=== PATIENT | female | born 1965 | race Caucasian/White ===

== ENCOUNTER → 2020-04-12 | Outpatient (CLI) | payer BC, SELFPAY | END | disposition home or self-care (01) | LOC: LABSPEC 17:38 | PROVIDERS: Referring Provider Physician Assistant; Visit Provider Physician Assistant | DX: Z20.828 Contact with and (suspected) exposure to other viral communicable diseases (principal) | CPT/HCPCS: 87635; G2023; U0003 ==

== ENCOUNTER 2025-08-25 08:35 | Emergency (ER) | payer OTHER, SELFPAY ==
[2025-08-25 08:35] VITALS: BP 166/87; PULSE 99; RESP 16; TEMP 36.7; O2SAT 100; BMI 35.9
--- NOTE | 2025-08-25 09:05 | CT_ITS ---
PROCEDURE: ABDOMEN/PELVIS W IV CONT ONLY 08/25/2025 REASON FOR EXAM: RIGHT LOWER QUADRANT PAIN TECHNIQUE: Procedure Code: [id number] Modality: CT Procedure: ABDOMEN/PELVIS W IV CONT ONLY Coronal and Sagittal reconstruction series were provided. CONTRAST: Isovue 370 VOLUME: 96 mL One or more dose reduction techniques were used (e.g., Automated exposure control, adjustment of the mA and/or kV according to patient size, use of iterative reconstruction technique. RADIATION DOSE SUMMARY: CTDlvol: 22.59 mGy DLP: 1172.31 mGycm COMPARISON: Unremarkable. FINDINGS: Lung bases: Dependent changes in the posterior lower lobes. Liver: Unremarkable. Gallbladder: Cholecystectomy. No biliary dilation. Spleen: Unremarkable. Pancreas: Unremarkable. Adrenals: Unremarkable. Kidneys: No hydronephrosis. No nephrolithiasis. A 1.1 cm simple cyst at the lower pole of the left kidney. Bladder: Unremarkable. Reproductive Organs: Unremarkable Bowel: Colonic diverticulosis with no evidence of acute diverticulitis. Dilated colonic and small bowel loops with fluid consistent with enterocolitis. No bowel obstruction. Appendix: Unremarkable. Lymph nodes: No lymphadenopathy. Vasculature: No aneurysm. Peritoneum / Retroperitoneum: No free air or free fluid. Bones: No acute bony abnormalities. CT/Abdomen/Pelvis W IV Cont ONLY IMPRESSION: Dilated colonic and small bowel loops with fluid consistent suggestive of enter ocolitis. Reading Location: [facility]
--- NOTE | 2025-08-25 09:09 | EX.ED.DYSGE1 ---
HPI History of Present Illness Chief Complaint: Abd Pain Narrative Narrative: Chief complaint and HPI: 59-year-old female with past medical history of HTN, HLD presents for evaluation of right lower quadrant abdominal pain. Onset of symptoms several days. Was seen by primary care physician who placed her on antibiotics for possible appendicitis. She denies any fever, chills, shortness of breath, chest pain, nausea, vomiting, constipation, dysuria. States her stools are a little soft and endorses bloating. Postmenopausal without any bleeding. States her blood pressure has been more elevated over the past couple days with this pain. Review of systems: See HPI Medications: As listed on the chart Allergies: As listed on the chart PFSH: Per chart Vital signs: As listed on the chart. Reviewed. Physical exam: Gen: A&O x3, NAD Head: Normocephalic, atraumatic Eyes: No sclera icterus, conjunctiva clear ENT: Moist mucous membranes CV: RRR, no murmurs Resp: Lungs CTA BL, no w/r/c GI: Abd soft, non-distended, mildly tender to palpation in the right lower quadrant, no r/r/g Musc: Full ROM, no deformity Skin: Warm, dry Psych: Cooperative, appropriate mood and affect [facility] History (Updated 08/25/25 @ 09:35 by Marnie Robertson) Hypertension Home Medications ?Medication ?Instructions ?Recorded ?Last Taken ?Type fluticasone propionate 50 2 sprays DAILY 12/13/15 Unknown History mcg/actuation nasal spray,suspension (Flonase) [id number]-[id number] 2 tab PO DAILY 12/13/15 Unknown History 5 mg-325 mg-200 mg tablet (Mucinex Sinus-Max Pressure-Pain) Allergy/AdvReac Type Severity Reaction Status Date / Time No Known Allergies Allergy Verified 08/25/25 08:36 Social History Smoking Status: Never smoker EXAM Physical Exam Const Vital Signs: 08/25/25 08:35 08/25/25 10:35 Temperature 98.1 F Temperature Source Temporal Pulse Rate 99 75 Respiratory Rate 16 16 Blood Pressure 166/87 H 138/79 H Blood Pressure Mean 113 98 Pulse Ox 100 97 Oxygen Delivery Method Room Air Room Air MDM MDM MDM Narrative Medical decision making narrative: 59-year-old female with past medical history of HTN, HLD presents for evaluation of right lower quadrant abdominal pain. Onset of symptoms several days. Was seen by primary care physician who placed her on antibiotics for possible appendicitis. Differential diagnosis includes but is not limited to appendicitis, UTI, urolithiasis, colitis, myofascial spasm. NS bolus, morphine, Zofran ordered for symptoms. Laboratory workup ordered including CT abdomen and pelvis. CBC without leukocytosis or anemia. CMP unremarkable. Lipase unremarkable. CT abdomen pelvis shows dilated colonic and small bowel loops with fluid consistent with suggestive of enterocolitis. Cyst of the left kidney. Diverticulosis without diverticulitis. UA negative for UTI. At this point in time, I suspect her abdominal pain is secondary to enterocolitis. Most enterocolitis is viral. She has no leukocytosis. However given that she was already started on ciprofloxacin and Flagyl, recommend continuing the complete prescription as she has received 3 days. Follow-up with primary care physician. Zofran as needed for nausea and vomiting. Recommend probiotics and yogurt with live culture to help with digestive issues and gut samy. Impression: 1. Enterocolitis Lab Data Labs: Laboratory Results - last 24 hr 08/25/25 08/25/25 09:39 10:15 WBC 6.3 RBC 4.65 Hgb 13.4 Hct 40.4 MCV 86.9 MCH 28.8 MCHC 33.2 RDW Std Deviation 41.2 RDW Coeff of Kathryn 13.1 Plt Count 345 MPV 9.9 Immature Gran % (Auto) 0.300 Neut % (Auto) 68.3 Lymph % (Auto) 19.0 [place] % (Auto) 10.2 H Eos % (Auto) 1.4 Baso % (Auto) 0.8 Absolute Neuts (auto) 4.3 Absolute Lymphs (auto) 1.20 Nucleated RBC % 0 Sodium 139 Potassium 3.4 Chloride 102 Carbon Dioxide 28.2 Anion Gap 9 BUN 16 Creatinine 0.86 Estim Creat Clear Calc 81.64 Est GFR (MDRD) Non-Af 78 BUN/Creatinine Ratio 18.2 Glucose 87 Calcium 9.5 Total Bilirubin 0.48 AST 22 ALT 21 Alkaline Phosphatase 67 Total Protein 7.1 Albumin 4.2 Globulin 2.9 Albumin/Globulin Ratio 1.4 Lipase 31 Urine Color Yellow Urine Clarity Clear Urine pH 7.0 Ur Specific Bishop 1.005 Urine Protein 15 H Urine Glucose (UA) Normal Urine Ketones Negative Urine Occult Blood 10 H Urine Nitrite Negative Urine Bilirubin Negative Urine Urobilinogen Normal Ur Leukocyte Esterase 25 H Urine RBC 0 SEEN Urine WBC 0-5 SEEN Ur Squamous Epith Cells 0-5 SEEN Urine Bacteria 0 SEEN Urine Mucus 0 SEEN Radiography Diagnostic Testing: Clinical Impression(s) from Imaging Studies Abdomen/Pelvis CT 08/25/25 09:05 IMPRESSION: Dilated colonic and small bowel loops with fluid consistent suggestive of enterocolitis. Reading Location: [facility] Discharge Plan Triage Chief Complaint: Abd Pain ED Provider: De Myles Dx/Rx/DC Orders Prescriptions: No Action fluticasone propionate [Flonase] 50 mcg/actuation spray,suspension 2 sprays NARES DAILY Patient Comments: 2 spray into both nostrils once a day as directed [id number]-[id number] [Mucinex Sinus-Max Pressur-Pain] 5-325-200 mg tablet 2 tab PO DAILY Patient Comments: 2 tablet by mouth twice a day Primary Care Provider: Mali Pereira Referrals: Care Physician,No Primary [Non-Staff, Medical] Print Language: Serbian
--- OUTSIDE RECORDS SUMMARY | 2025-08-25 09:18 | XMS RPT_ITS | CCD ---
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 Bones and soft tissues: Unremarkable. DIVISION OF RADIOLOGY Provider, [facility] Khoa Cifuentes - 03/29/2025 * * *Final Report* * * DATE OF EXAM: Mar 29 2025 11:06AM WOX [id number] - XR CHEST 2V FRONTAL/LAT / PROCEDURE REASON: Acute cough * * * * Physician Interpretation * * * * EXAMINATION: CHEST RADIOGRAPH (2 VIEW FRONTAL & LATERAL) CLINICAL HISTORY: Acute cough MQ: XC2_6 EXAM DATE/TIME: 03/29/2025 11:06 AM COMPARISON: 06/22/2022 RESULT: Lines, tubes, and devices: None. Lungs and pleura: No consolidation. No lung mass. No pleural effusion. No pneumothorax. Cardiomediastinal silhouette: Normal cardiomediastinal silhouette. Bones and soft tissues: Unremarkable. IMPRESSION IMPRESSION: No acute radiographic abnormality. Bulldozer Operator: KARUNA Transcribe Date/Time: Mar 29 2025 11:07A Dictated by : JAROD CRAWLEY MD This examination was interpreted and the report reviewed and electronically signed by: JAROD CRAWLEY MD on Mar 29 2025 11:08AM [facility] Radiology Study observation (narrative) [facility] XR Chest PA and LateralOrder ed By: [facility] Provider on 03-29-2025 [facility] CNOVon 02-19-2025 CNOV Office Visit (FAMPWS ) KARY ALFARO ([id number]) 1965 F Date Time Provider Department 02/19/25 8:00 AM MALI SMITH FAMPWS During your visit today, we recorded the following information about you: Pulse Blood pressure Weight 83/minute 136/84 99.3 kg Mali Smith APRN.EXCELLENCE COACH 02/19/2025 8:48 AM Signed This is a 59 year old female who presents today with: Patient presents with: 6 Month Exam HISTORY OF PRESENT ILLNESS: Kary Alfaro is a 59 year old female. Patient presents with: 6 Month Exam Kary is a 59-year-old female presenting for an annual wellness visit, with additional concerns about weight gain and joint pain. Annual Wellness Exam: - Reports feeling better now, but had a rough winter with winter blues. - No recent weight loss; has gained weight since discontinuing bioidentical hormone replacement therapy (HRT) two years ago. - No fever, chills, cough, or wheezing. - No dyspnea, chest pain, or orthopnea. - No palpitations, nausea, emesis, diarrhea, or constipation. - No hematuria, dysuria, or polyuria. - No seizures, CVA, or tremors. - No recent changes in vision; hearing has worsened, with tinnitus. - No lumps or swelling in the neck. - No hemoptysis or hematochezia. - No excessive thirst. - No abdominal pain. - No feelings of hopelessness, helplessness, or suicidal ideation. - No recent changes in interest or pleasure in activities; reports feeling clear and good. Weight Gain: - Gained approximately 20 lbs since discontinuing bioidentical HRT two years ago. - Discontinued HRT due to cost ($250-$300/month) and not wanting to stay on it indefinitely. - Was on HRT for 4-5 years and felt it was effective after initial adjustment period. - Currently taking Provitalize, a natural supplement with turmeric, for about a month; purchased a 3-month supply to evaluate its effects. Joint Pain: - Reports joint pain in hips, knees, and right shoulder. - Right shoulder pain began in September; worsens with certain movements and at night. - No known trauma or injury to the shoulder. - Pain in shoulder described as stiffness and a catching sensation when putting on a shirt. - Pain in shoulder is intermittent and varies in severity. - Denies taking regular analgesics; uses ibuprofen occasionally for severe pain. Motion Sickness: - History of motion sickness, particularly on buses and in cars when not driving. - Used scopolamine patch successfully on a previous cruise; plans to use it again for an upcoming [facility] cruise in March. - Reports that Dramamine is effective for flights. PAST MEDICAL HISTORY: PAST MEDICAL HISTORY Diagnosis Date Colon polyp Depression Environmental allergies Hypertension Pilonidal cyst 1983 Pilonidal cyst 1989 Pilonidal cyst 1994 Snoring PAST SURGICAL HISTORY Procedure Laterality Date COLONOSCOPY 02/17/2016 Repeat 2019 COLONOSCOPY FLX DX W/COLLJ SPEC WHEN PFRMD 08/19/2020 Colonoscopy repeat in 3 years COLONOSCOPY FLX DX W/COLLJ SPEC WHEN PFRMD 08/[address] Mott (repeat 5yrs) EXCISION PILONIDAL CYST/SINUS SIMPLE 1989 EXCISION PILONIDAL CYST/SINUS SIMPLE 1994 LAPAROSCOPY SURG CHOLECYSTECTOMY 1998 Cholecystectomy, lap PILONIDAL CYST/SINUS EXCISION 1983 ALLERGIES Blue Dye, Codeine, and Seasonal Allergies MEDICATIONS Current Outpatient Medications Medication Sig FLUoxetine (PROZAC) 40 mg capsule Take 1 capsule by mouth once daily. atorvastatin (LIPITOR) 10 mg tablet Take 1 tablet by mouth daily at bedtime. For cholesterol. hydroCHLOROthiazide 25 mg tablet Take 1 tablet by mouth once daily. fluticasone (FLONASE) 50 mcg/actuation nasal spray Use 2 Sprays in each nostril once daily. multivitamin tablet Take 1 tablet by mouth once daily. cholecalciferol, vitamin D3, (VITAMIN D3 ORAL) Take 5,000 Units by mouth once daily. No current facility-administered medications for this visit. FAMILY HISTORY Problem Relation Age of Onset Cancer Mother Ischemic Heart Disease Father Blood Disease Father Blood Disease Sister 1/2 sis Cancer Maternal Grandmother other (Leiden factor V) Daughter Social History Tobacco Use Smoking status: Never Smokeless tobacco: Never Vaping Use Vaping status: Never Used Substance Use Topics Alcohol use: Yes Comment: rarely Drug use: Yes REVIEW OF SYSTEMS Constitutional: (+) weight gain, (-) fever, (-) chills Eyes: (-) visual changes Ears/Nose/Mouth/Throat : (+) hearing changes, (+) tinnitus Neck: (-) neck swelling/lumps Cardiovascular: (-) chest pain, (-) palpitations, (-) leg swelling Respiratory: (-) cough, (-) wheeze, (-) shortness of breath Gastrointestinal: (-) nausea, (-) vomiting, (-) diarrhea, (-) constipation, (-) heartburn, (-) GI bleeding Genitourinary: (-) dysuria, (-) hematuria Musculoskeletal: (+) hip pain, (+) knee pa (more content not included)... 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 2D standard and 3D tomosynthesis combination imaging performed through both breasts in the MLO and CC projection. Computer aided detection was utilized in the interpretation of this exam. Patient experienced difficulty with positioning. Best possible images were obtained. COMPARISON: September 14, 2023, September 11, 2022, August 20, 2021 HISTORY: Breast cancer screening. FINDINGS: BREAST DENSITY: There are scattered areas of fibroglandular density. There are bilateral upper outer quadrant intramammary lymph node, unchanged. There are bilateral benign-type calcifications. There is no significant mass, architectural distortion or microcalcification. Fibroglandular pattern is stable. IMPRESSION: No mammographic evidence of malignancy. Continued screening with annual mammograms is recommended. Laureano Berryzick risk calculations, generated with the history provided, report this patient's 10 year risk and lifetime risk for developing breast cancer at 2.9% and 7.9%, respectively. Based on this assessment tool, if the patient's calculated lifetime risk is below 20%, then the patient is considered at average risk for developing breast cancer. If the patient's calculated lifetime risk is at or above 20%, then the patient is considered high risk for developing breast cancer and may be a candidate for supplemental breast MRI screening in addition to annual mammographic screening per the [employer]. BIRADS: MAMMOGRAM BI-RADS: 2: Benign finding RECALL: 1 year screening RECALL TYPE: mammo LETTER SENT: Normal BI-RADS 1 and 2 Interpreted by: Basilia Ball Preliminary Report By: Basilia Ball Electronically signed By Basilia Ball Dictated Date: 09/21/2024 7:16:06 PM Prelim Date: 09/21/2024 7:20:05 PM Sign Date: 09/21/2024 7:20:05 PM Ordering Provider: RANJANA KIMBLE copy to: SRNII SHANNON MD, ph: [phone], fax: [phone] Cigar Packer: JIMENA CAMPBELL RT(R)(CT) letter sent: Normal BI-RADS 1 and 2 Mammogram BI-RADS: 2 Benign Normal [facility] 25([place])D3 [facility] 25-hydroxyvitamin D3 [Mass/Vol] 94.4 ng/mL High 31.0-80.0 [facility] Comment on above: Order Comment: Speci men Type: BLOOD SPECIMEN Ordering Facility: [facility] Address: [address] [place] [address] Performed By: #### 5 5454-3 #### [facility] CLIA [id number] [address] [place] [address] [place] CBC W Auto Differential pane l (Bld)on 08-22-2024 Basophils (Bld) [#/Vol] 0.04 10*3/uL [facility] Basophils/100 WBC (Bld) 0.6 % [facility] Differential cell count method Nom (Bld) Auto [facility] Eosinophils (Bld) [#/Vol] 0.11 10*3/uL [facility] Eosinophils/100 WBC (Bld) 1.7 % [facility] Erythrocyte distribution width (RBC) [Ratio] 12.7 % 11.5 - 15.0 % [facility] Hematocrit (Bld) [Volume fraction] 42.7 % 36.0 - 46.0 % [facility] Hemoglobin (Bld) [Mass/Vol] 13.9 g/dL 11.5 - 15.5 g/dL [facility] Immature granulocytes (Bld) [#/Vol] [facility] Immature granulocytes/100 WBC (Bld) 0.3 % [facility] Lymphocytes (Bld) [#/Vol] 1.78 10*3/uL [facility] Lymphocytes/100 WBC (Bld) 28.2 % [facility] MCH (RBC) [Entitic mass] 28.8 pg 26.0 - 34.0 pg [facility] MCHC (RBC) [Mass/Vol] 32.6 g/dL 30.5 - 36.0 g/dL [facility] MCV (RBC) [Entitic vol] 88.6 fL 80.0 - 100.0 fL [facility] Monocytes (Bld) [#/Vol] 0.55 10*3/uL [facility] Monocytes/100 WBC (Bld) 8.7 % [facility] Neutrophils (Bld) [#/Vol] 3.82 10*3/uL [facility] Neutrophils/100 WBC (Bld) 60.5 % [facility] Nucleated RBC (Bld) [#/Vol] [facility] Nucleated RBC/100 WBC (Bld) [Ratio] 0.0 % /100 WBC [facility] Platelet mean volume (Bld) [Entitic vol] 10.3 fL 9.0 - 12.7 fL [facility] Platelets (Bld) [#/Vol] 396 10*3/uL [facility] RBC (Bld) [#/Vol] 4.82 10*6/uL 3.90 - 5.2 0 m/uL [facility] WBC (Bld) [#/Vol] 6.32 10*3/uL [facility] Basophils (Bld) [#/Vol] 0.04 10*3/uL Normal <0.11 [facility] Comment on above: Order Comment: Speci men Type: BLOOD SPECIMEN Ordering Facility: [facility] Address: [address] [place] [address] Performed By: #### 5 7021-8 #### [facility] CLIA [id number] [address] [place] [address] [place] Basophils/100 WBC (Bld) 0.6 % Normal [facility] Comment on above: Order Comment: Speci men Type: BLOOD SPECIMEN Ordering Facility: [facility] Address: [address] [place] [address] Performed By: #### 5 7021-8 #### [facility] CLIA [id number] [address] [place] [address] [place] Differential cell count method Nom (Bld) Auto Normal [facility] Comment on above: Order Comment: Speci men Type: BLOOD SPECIMEN Ordering Facility: [facility] Address: [address] [place] [address] Performed By: #### 5 7021-8 #### [facility] CLIA [id number] [address] [place] [address] [place] Eosinophils (Bld) [#/Vol] 0.11 10*3/uL Normal <0.46 [facility] Comment on above: Order Comment: Speci men Type: BLOOD SPECIMEN Ordering Facility: [facility] Address: [address] [place] [address] Performed By: #### 5 7021-8 #### [facility] CLIA [id number] [address] [place] [address] [place] Eosinophils/100 WBC (Bld) 1.7 % Normal [facility] Comment on above: Order Comment: Speci men Type: BLOOD SPECIMEN Ordering Facility: [facility] Address: [address] [place] [address] Performed By: #### 5 7021-8 #### [facility] CLIA [id number] [address] [place] [address] [place] Erythrocyte distribution width (RBC) [Ratio] 12.7 % Normal 11.5-15.0 [facility] Comment on above: Order Comment: Speci men Type: BLOOD SPECIMEN Ordering Facility: [facility] Address: [address] [place] [address] Performed By: #### 5 7021-8 #### [facility] CLIA [id number] [address] [place] [address] [place] Hematocrit (Bld) [Volume fraction] 42.7 % Normal 36.0-46.0 [facility] Comment on above: Order Comment: Speci men Type: BLOOD SPECIMEN Ordering Facility: [facility] Address: [address] [place] [address] Performed By: #### 5 7021-8 #### [facility] CLIA [id number] [address] [place] [address] [place] Hemoglobin (Bld) [Mass/Vol] 13.9 g/dL Normal 11.5-15.5 [facility] Comment on above: Order Comment: Speci men Type: BLOOD SPECIMEN Ordering Facility: [facility] Address: [address] [place] [address] Performed By: #### 5 7021-8 #### [facility] CLIA [id number] [address] [place] [address] [place] Immature granulocytes (Bld) [#/Vol] 10*3/uL Normal <0.10 [facility] Comment on above: Order Comment: Speci men Type: BLOOD SPECIMEN Ordering Facility: [facility] Address: [address] [place] [address] Performed By: #### 5 7021-8 #### [facility] CLIA [id number] [address] [place] [address] [place] Immature granulocytes/100 WBC (Bld) 0.3 % Normal [facility] Comment on above: Order Comment: Speci men Type: BLOOD SPECIMEN Ordering Facility: [facility] Address: [address] [place] [address] Performed By: #### 5 7021-8 #### [facility] CLIA [id number] [address] [place] [address] [place] Lymphocytes (Bld) [#/Vol] 1.78 10*3/uL Normal 1.00-4.00 [facility] Comment on above: Order Comment: Speci men Type: BLOOD SPECIMEN Ordering Facility: [facility] Address: [address] [place] [address] Performed By: #### 5 7021-8 #### [facility] CLIA [id number] [address] [place] [address] [place] Lymphocytes/100 WBC (Bld) 28.2 % Normal [facility] Comment on above: Order Comment: Speci men Type: BLOOD SPECIMEN Ordering Facility: [facility] Address: [address] [place] [address] Performed By: #### 5 7021-8 #### [facility] CLIA [id number] [address] [place] [address] [place] MCH (RBC) [Entitic mass] 28.8 pg Normal 26.0-34.0 [facility] Comment on above: Order Comment: Speci men Type: BLOOD SPECIMEN Ordering Facility: [facility] Address: [address] [place] [address] Performed By: #### 5 7021-8 #### [facility] CLIA [id number] [address] [place] [address] [place] MCHC (RBC) [Mass/Vol] 32.6 g/dL Normal 30.5-36.0 [facility] Comment on above: Order Comment: Speci men Type: BLOOD SPECIMEN Ordering Facility: [facility] Address: [address] [place] [address] Performed By: #### 5 7021-8 #### [facility] CLIA [id number] [address] [place] [address] [place] MCV (RBC) [Entitic vol] 88.6 fL Normal 80.0-100.0 [facility] Comment on above: Order Comment: Speci men Type: BLOOD SPECIMEN Ordering Facility: [facility] Address: [address] [place] [address] Performed By: #### 5 7021-8 #### [facility] CLIA [id number] [address] [place] [address] [place] Monocytes (Bld) [#/Vol] 0.55 10*3/uL Normal <0.87 [facility] Comment on above: Order Comment: Speci men Type: BLOOD SPECIMEN Ordering Facility: [facility] Address: [address] [place] [address] Performed By: #### 5 7021-8 #### [facility] CLIA [id number] [address] [place] [address] [place] Monocytes/100 WBC (Bld) 8.7 % Normal [facility] Comment on above: Order Comment: Speci men Type: BLOOD SPECIMEN Ordering Facility: [facility] Address: [address] [place] [address] Performed By: #### 5 7021-8 #### [facility] CLIA [id number] [address] [place] [address] [place] Neutrophils (Bld) [#/Vol] 3.82 10*3/uL Normal 1.45-7.50 [facility] Comment on above: Order Comment: Speci men Type: BLOOD SPECIMEN Ordering Facility: [facility] Address: [address] [place] [address] Performed By: #### 5 7021-8 #### [facility] CLIA [id number] [address] [place] [address] [place] Neutrophils/100 WBC (Bld) 60.5 % Normal [facility] Comment on above: Order Comment: Speci men Type: BLOOD SPECIMEN Ordering Facility: [facility] Address: [address] [place] [address] Performed By: #### 5 7021-8 #### [facility] CLIA [id number] [address] [place] [address] [place] Nucleated RBC (Bld) [#/Vol] 10*3/uL Normal <0.01 [facility] Comment on above: Order Comment: Speci men Type: BLOOD SPECIMEN Ordering Facility: [facility] Address: [address] [place] [address] Performed By: #### 5 7021-8 #### [facility] CLIA [id number] [address] [place] [address] [place] Nucleated RBC/100 WBC (Bld) [Ratio] 0.0 /100 WBC Normal [facility] Comment on above: Order Comment: Speci men Type: BLOOD SPECIMEN Ordering Facility: [facility] Address: [address] [place] [address] Performed By: #### 5 7021-8 #### [facility] CLIA [id number] [address] [place] [address] [place] Platelet mean volume (Bld) [Entitic vol] 10.3 fL Normal 9.0-12.7 [facility] Comment on above: Order Comment: Speci men Type: BLOOD SPECIMEN Ordering Facility: [facility] Address: [address] [place] [address] Performed By: #### 5 7021-8 #### [facility] CLIA [id number] [address] [place] [address] [place] Platelets (Bld) [#/Vol] 396 10*3/uL Normal 150-400 [facility] Comment on above: Order Comment: Speci men Type: BLOOD SPECIMEN Ordering Facility: [facility] Address: [address] [place] [address] Performed By: #### 5 7021-8 #### [facility] CLIA [id number] [address] [place] [address] [place] RBC (Bld) [#/Vol] 4.82 10*6/uL Normal 3.90-5.20 [facility] Comment on above: Order Comment: Speci men Type: BLOOD SPECIMEN Ordering Facility: [facility] Address: [address] [place] [address] Performed By: #### 5 7021-8 #### [facility] CLIA [id number] [address] [place] [address] [place] WBC (Bld) [#/Vol] 6.32 10*3/uL Normal 3.70-11.00 [facility] Comment on above: Order Comment: Speci men Type: BLOOD SPECIMEN Ordering Facility: [facility] Address: [address] [place] [address] Performed By: #### 5 7021-8 #### [facility] CLIA [id number] [address] [place] [address] [place] CNOVon 08-22-2024 CNOV Office Visit (FAMPWS ) KARY ALFARO ([id number]) 1965 F Date Time Provider Department 08/22/24 8:40 AM [facility] During your visit today, we recorded the following information about you: Pulse Respiration Blood pressure Weight 69/minute 16/minute 130/78 97.5 kg Height 1.66 m Mali Smith, ANCELMO.EXCELLENCE COACH 09/01/2024 7:58 AM Addendum Chief Reason For Appointment No chief complaint on file. Kary Spencer Joseharoon is a 58 year old female who presents for annual exam. 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 Al Thompson Couldn't lay on LEFT side Post Menopausal Syndrome - 12/02/2020 Comment: Hirsutes, body aches, low libido, vaginal cysts Ashlee Peterson Taking [rogesterone 100mg 2 tabs daily Screening for Breast Cancer - 11/01/2017 Colon Polyp Comment: 08/19/[address] Snell: 10mm polyp ascending colon bx tubular adenoma. Surveillance 3 years. Adjustment Reaction, Depressive, Brief - 06/05/2016 Comment: Does not do well off medication Abnormal colonoscopy - 03/09/2016 Comment: 03/2016 Dr. Wilson cecum adenoma, recheck 3 years Benign Hypertension - 01/22/2016 Coccyx Pain - 08/19/2011 ROS: REVIEW OF SYSTEMS GENERAL:Slight weight loss from oral surgery sequela, no malaise, no fevers/chills HEENT: Negative for frequent or significant headaches, Some changes in hearing AND tinnitus, some steady change in vision. NECK: Negative for lumps, goiter, pain and significant neck swelling RESPIRATORY: Negative for cough, hemoptysis, wheezing, dyspnea or shortness of breath CARDIOVASCULAR: Negative for chest pain, leg swelling, orthopnea, or palpitations GI: No nausea, vomiting, or diarrhea/constipation. No hematochezia/melena. No heartburn or reflux symptoms. : No history of dysuria, frequency or incontinence MUSCULOSKELETAL: Negative for joint pain or swelling. Hips are stiff SKIN: Negative for lesions, rash, and itching ENDOCRINE: Negative for cold or heat intolerance, polyuria, + polydipsia and goiter NEURO: No history of headaches, syncope, paralysis, seizures or tremors MOOD: Negative for depression, anxiety, or suicidal ideation. PAST MEDICAL HISTORY Diagnosis Date Colon polyp Depression Environmental allergies Hypertension Pilonidal cyst 1983 Pilonidal cyst 1989 Pilonidal cyst 1994 Snoring PAST SURGICAL HISTORY Procedure Laterality Date COLONOSCOPY 02/17/2016 Repeat 2019 COLONOSCOPY FLX DX W/COLLJ SPEC WHEN PFRMD 08/19/2020 Colonoscopy repeat in 3 years COLONOSCOPY FLX DX W/COLLJ SPEC WHEN PFRMD 08/[address] Mott (repeat 5yrs) EXCISION PILONIDAL CYST/SINUS SIMPLE 1989 EXCISION PILONIDAL CYST/SINUS SIMPLE 1994 LAPAROSCOPY SURG CHOLECYSTECTOMY 1998 Cholecystectomy, lap PILONIDAL CYST/SINUS EXCISION 1983 Medication List Current Outpatient Medications Medication Sig Dispense Refill hydroCHLOROthiazide 25 mg tablet Take 1 tablet by mouth once daily. 90 tablet 1 multivitamin tablet Take 1 tablet by mouth once daily. cholecalciferol, vitamin D3, (VITAMIN D3 ORAL) Take 5,000 Units by mouth once daily. fluticasone (FLONASE) 50 mcg/actuation nasal spray Use 2 Sprays in each nostril once daily. atorvastatin (LIPITOR) 10 mg tablet Take 1 tablet by mouth daily at bedtime. For cholesterol. 90 tablet 1 FLUoxetine (PROZAC) 40 mg capsule Take 1 capsule by mouth once daily. 90 capsule 3 No current facility-administered medications for this visit. Weight Summary: Weight Change: Body mass index is 35.39 kg/m?. Last Wt 08/22/24 : 97.5 kg (215 lb) 02/17/24 : 98.9 kg (218 lb) 09/09/23 : 99.7 kg (219 lb 12.8 oz) 08/19/23 : 100.7 kg (222 lb) 03/03/23 : 99.7 kg (219 lb 12.8 oz) Physical Exam: General Appearance: well appearing, alert and oriented. Skin: no suspicious lesion, no rash, no open sores Head: normocephalic, no obvious masses, lesions, tenderness or abnormalities. Eyes: Anicteric sclera. Pupils are equally round Ears: external ears normal, canals clear, TM's normal. Hearing to conversational voice intact. Nose/Sinuses: nares normal, septum midline, mucosa normal, no drainage or sinus tenderness. Oropharynx: lips, mucosa, and tongue normal, oropharynx normal. Neck: trachea midline, thyroid without mass or nodularity, thyroid moves normally with swallow, no regional (more content not included)... Normal [facility] Comprehensive metabolic 2000 panelon 08-22-2024 Albumin [Mass/Vol] 4.5 g/dL Normal 3.9-4.9 [facility] Comment on above: Order Comment: Speci men Type: BLOOD SPECIMEN Ordering Facility: [facility] Address: [address] [place] [address] Performed By: #### 2 4323-8, LIPNF, 16386-9, 2131-9 #### [facility] CLIA [id number] [address] [place] [address] [id number], [place] [address] [place] ALP [Catalytic activity/Vol] 81 U/L Normal 34-123 [facility] Comment on above: Order Comment: Speci men Type: BLOOD SPECIMEN Ordering Facility: [facility] Address: [address] [place] [address] Performed By: #### 2 4323-8, LIPNF, , 2132-06 #### [facility] CLIA [id number] [address] [place] [address] [place] ALT [Catalytic activity/Vol] 21 U/L Normal 7-38 [facility] Comment on above: Order Comment: Speci men Type: BLOOD SPECIMEN Ordering Facility: [facility] Address: [address] [place] [address] Performed By: #### 2 4323-8, LIPNF, , 2132-06 #### [facility] CLIA [id number] [address] [place] [address] [place] Anion gap [Moles/Vol] 13 mmol/L Normal 8-15 [facility] Comment on above: Order Comment: Speci men Type: BLOOD SPECIMEN Ordering Facility: [facility] Address: [address] [place] [address] Performed By: #### 2 4323-8, LIPNF, , 2132-06 #### [facility] CLIA [id number] [address] [place] [address] [place] AST [Catalytic activity/Vol] 19 U/L Normal 13-35 [facility] Comment on above: Order Comment: Speci men Type: BLOOD SPECIMEN Ordering Facility: [facility] Address: [address] [place] [address] Performed By: #### 2 4323-8, LIPNF, , 2132-06 #### [facility] CLIA [id number] [address] [place] [address] [place] Bilirubin [Mass/Vol] 0.7 mg/dL Normal 0.2-1.3 [facility] Comment on above: Order Comment: Speci men Type: BLOOD SPECIMEN Ordering Facility: [facility] Address: [address] [place] [address] Performed By: #### 2 4323-8, LIPNF, , 2132-06 #### [facility] CLIA [id number] [address] [place] [address] [place] Calcium [Mass/Vol] 10.1 mg/dL Normal 8.5-10.2 [facility] Comment on above: Order Comment: Speci men Type: BLOOD SPECIMEN Ordering Facility: [facility] Address: [address] [place] [address] Performed By: #### 2 4323-8, LIPNF, , 2132-06 #### [facility] CLIA [id number] [address] [place] [address] [place] Chloride [Moles/Vol] 97 mmol/L Low 98-107 [facility] Comment on above: Order Comment: Speci men Type: BLOOD SPECIMEN Ordering Facility: [facility] Address: [address] [place] [address] Performed By: #### 2 4323-8, LIPNF, , 2132-06 #### [facility] CLIA [id number] [address] [place] [address] [place] CO2 [Moles/Vol] 26 mmol/L Normal 22-30 [facility] Comment on above: Order Comment: Speci men Type: BLOOD SPECIMEN Ordering Facility: [facility] Address: [address] [place] [address] Performed By: #### 2 4323-8, LIPNF, , 2132-06 #### [facility] CLIA [id number] [address] [place] [address] [place] Creatinine [Mass/Vol] 0.74 mg/dL Normal 0.58-0.96 [facility] Comment on above: Order Comment: Sascha gorman Type: BLOOD SPECIMEN Ordering Facility: [facility] Address: [address] [place] [address] Performed By: #### 2 4323-8, LIPJAMILAH, , 2132-06 #### [facility] CLIA [id number] [address] [place] [address] [place] Creatinine and Glomerular filtration rate.predicted panel (S/P/Bld) 94 mL/min/1.73m??? Normal >=60 [facility] Comment on above: Order Comment: Sascha gorman Type: BLOOD SPECIMEN Ordering Facility: [facility] Address: [address] [place] [address] Result Comment: Ann mated Glomerular Filtration Rate (eGFR) is calculated using the 2020 CKD-EPI creatinine equation. This equation utilizes serum creatinine, sex, and age as parameters. The creatinine assay has traceable calibration to isotope dilution-mass spectrometry. Refer to KDIGO guidelines for clinical interpretation. In patients with unstable renal function, e.g. those with acute kidney injury, the eGFR may not accurately reflect actual GFR. Performed By: #### 2 4323-8, MELQUIADES, , 2132-06 #### [facility] CLIA [id number] [address] [place] [address] [place] Glucose [Mass/Vol] 93 mg/dL Normal 74-99 [facility] Comment on above: Order Comment: Sascha gorman Type: BLOOD SPECIMEN Ordering Facility: [facility] Address: [address] [place] [address] Result Comment: The [place] Diabetes Association (ADA) provides guidance for cutoff values for fasting glucose and random glucose. The ADA defines fasting as no caloric intake for at least 8 hours. Fasting plasma glucose results between 100 to 125 mg/dL indicate increased risk for diabetes (prediabetes). Fasting plasma glucose results greater than or equal to 126 mg/dL meet the criteria for diagnosis of diabetes. In the absence of unequivocal hyperglycemia, results should be confirmed by repeat testing. In a patient with classic symptoms of hyperglycemia or hyperglycemic crisis, random plasma glucose results greater than or equal to 200 mg/dL meet the criteria for diagnosis of diabetes. Reference: Standards of Medical Care in Diabetes 2016, [place] [employer] Association. Diabetes Care. 2016.39(Suppl 1). Performed By: #### 2 4323-8, LIPNF, , 2132-06 #### [facility] CLIA [id number] [address] [place] [address] [place] Potassium [Moles/Vol] 3.9 mmol/L Normal 3.7-5.1 [facility] Comment on above: Order Comment: Speci men Type: BLOOD SPECIMEN Ordering Facility: [facility] Address: [address] [place] [address] Performed By: #### 2 4323-8, LIPNF, , 2132-06 #### [facility] CLIA [id number] [address] [place] [address] [place] Protein [Mass/Vol] 7.4 g/dL Normal 6.3-8.0 [facility] Comment on above: Order Comment: Speci men Type: BLOOD SPECIMEN Ordering Facility: [facility] Address: [address] [place] [address] Performed By: #### 2 4323-8, LIPNF, , 2132-06 #### [facility] CLIA [id number] [address] [place] [address] [place] Sodium [Moles/Vol] 136 mmol/L Normal 136-144 [facility] Comment on above: Order Comment: Speci men Type: BLOOD SPECIMEN Ordering Facility: [facility] Address: [address] [place] [address] Performed By: #### 2 4323-8, LIPNF, , 2132-06 #### [facility] CLIA [id number] [address] [place], [place] [id number] [place] Urea nitrogen [Mass/Vol] 12 mg/dL Normal 7-21 [facility] Comment on above: Order Comment: Sascha gorman Type: BLOOD SPECIMEN Ordering Facility: [facility] Address: [address] [place] [address] Performed By: #### 2 4323-8, LIPNF, 72088-9, 2132-9 #### [facility] CLIA [id number] [address] [place] [address] [place] HCV Ab Ser Qlon 08-22-2024 HCV Ab Ql (S) Negative Normal Negative [facility] Comment on above: Order Comment: Sascha gorman Type: BLOOD SPECIMEN Ordering Facility: [facility] Address: [address] [place] [address] Result Comment: The result suggests no evidence of active infection with Hepatitis C virus. Should recent infection be suspected, repeat testing may be considered 4-6 weeks after this draw. Performed By: #### 5 5454-3 #### [facility] CLIA [id number] [address] [place] [address] [place] HbA1c (Bld)on 08-22-2024 Average glucose Estimated from glycated hemoglobin (Bld) [Mass/Vol] 108 mg/dL Normal [facility] Comment on above: Order Comment: Sascha gorman Type: BLOOD SPECIMEN Ordering Facility: [facility] Address: [address] [place] [address] Result Comment: eAG: (Estimated average glucose) is a calculated value from HgbA1c and is specialty sales representative of the average blood glucose level in the last 2-3 month period. Performed By: #### 5 5454-3 #### [facility] CLIA [id number] [address] [place] [address] [place] HbA1c (Bld) [Mass fraction] 5.4 % Normal 4.3-5.6 [facility] Comment on above: Order Comment: Sascha gorman Type: BLOOD SPECIMEN Ordering Facility: [facility] Address: [address] [place] [address] Result Comment: [place] Diabetes Association guidelines indicate that patients with HgbA1c in the range 5.7-6.4% are at increased risk for development of diabetes, and intervention by lifestyle modification may be beneficial. HgbA1c greater or equal to 6.5% is considered diagnostic of diabetes. Performed By: #### 5 5454-3 #### [facility] CLIA [id number] [address] [place] [address] [place] LIPID PANEL, NONFASTINGon Cholesterol [Mass/Vol] 144 mg/dL Normal <200 [facility] Comment on above: Order Comment: Sascha gorman Type: BLOOD SPECIMEN Ordering Facility: [facility] Address: [address] [place] [address] Result Comment: <200 mg/dL, Desirable 200-239 mg/dL, Borderline high >239 mg/dL, High Performed By: #### 2 4323-8, LIPNF, , 2132-06 #### [facility] CLIA [id number] [address] [place] [address] [place] HDL CHOLESTEROL, NF 54 mg/dL Normal >39 [facility] Comment on above: Order Comment: Sascha gorman Type: BLOOD SPECIMEN Ordering Facility: [facility] Address: [address] [place] [address] Result Comment: 40-5 9 mg/dL, Acceptable >59 mg/dL, High: Negative risk factor for coronary heart disease <40 mg/dL, Low: Positive risk factor for coronary heart disease Performed By: #### 2 4323-8, LIPNF, , 2132-06 #### [facility] CLIA [id number] [address] [place] [address] [place] LDL CHOLESTEROL, NF 75 mg/dL Normal <100 [facility] Comment on above: Order Comment: Sascha gorman Type: BLOOD SPECIMEN Ordering Facility: [facility] Address: [address] [place] [address] Result Comment: <100 mg/dL, Optimal 100-129 mg/dL, Near optimal/above optimal 130-159 mg/dL, Borderline high 160-189 mg/dL, High >189 mg/dL, Very high Secondary prevention optimal LDL Cholesterol levels are recommended to be < 70 mg/dL Performed By: #### 2 4323-8, LIPNF, , 2132-06 #### [facility] CLIA [id number] [address] [facility] [place] [address] [place] LDL/HDL RATIO, NF 1.39 mg/dL Normal <2.54 [facility] Comment on above: Order Comment: Speci men Type: BLOOD SPECIMEN Ordering Facility: [facility] Address: [address] [place] [address] Result Comment: Refe rence: 1. National Cholesterol Education Program ATP III Guideline At-A-Glance Quick Desk Reference: National Heart, Lung, and Blood [place]. National Institutes of Health. 2001: NIH Publication No. 01-3305. 2. An International Atherosclerosis Society position paper: global recommendations for the management of dyslipidemia: executive summary, Atherosclerosis. 2014: 232(2):410-413. Performed By: #### 2 4323-8, LIPNF, , 2132-06 #### [facility] CLIA [id number] [address] [place] [address] [place] NON HDL CHOL, NF 90 mg/dL Normal <130 [facility] Comment on above: Order Comment: Speci men Type: BLOOD SPECIMEN Ordering Facility: [facility] Address: [address] [place] [address] Result Comment: <130 mg/dL, Optimal 130-159 mg/dL, Near optimal/above optimal 160-189 mg/dL, Borderline high 190-219 mg/dL, High >219 mg/dL, Very high Secondary prevention optimal non HDL Cholesterol levels are recommended to be <100 mg/dL Performed By: #### 2 4323-8, LIPNF, , 2132-06 #### [facility] CLIA [id number] [address] [facility] [place] [address] [place] T CHOL/HDL RATIO NF 2.67 mg/dL Normal <5.10 [facility] Comment on above: Order Comment: Speci men Type: BLOOD SPECIMEN Ordering Facility: [facility] Address: [address] [place] [address] Performed By: #### 2 4323-8, LIPNF, , 2132-06 #### [facility] CLIA [id number] [address] [place] [address] [place] TRIGLYCERIDES, NF 76 mg/dL Normal <150 [facility] Comment on above: Order Comment: Speci men Type: BLOOD SPECIMEN Ordering Facility: [facility] Address: [address] [place] [address] Result Comment: <150 mg/dL, Normal 150-199 mg/dL, Borderline high 200-499 mg/dL, High >499 mg/dL, Very high Performed By: #### 2 4323-8, LIPNF, , 2132-06 #### [facility] CLIA [id number] [address] [place] [address] [place] VLDL CHOLESTEROL, NF 15 mg/dL Normal <30 [facility] Comment on above: Order Comment: Speci men Type: BLOOD SPECIMEN Ordering Facility: [facility] Address: [address] [place] [address] Performed By: #### 2 4323-8, LIPNF, , 2132-06 #### [facility] CLIA [id number] [address] [place] [address] [place] Magnesium SerPl-mCncon 08-22 Magnesium [Mass/Vol] 2.0 mg/dL Normal 1.7-2.3 [facility] Comment on above: Order Comment: Speci men Type: BLOOD SPECIMEN Ordering Facility: [facility] Address: [address] [place] [address] Performed By: #### 2 4323-8, LIPNF, , 2132-06 #### [facility] CLIA [id number] [address] [place] [address] [place] Vit B12 [facility] -19-2 024 Cobalamin (Vitamin B12) [Mass/Vol] 641 pg/mL Normal 232-1245 [facility] Comment on above: Order Comment: Speci men Type: BLOOD SPECIMEN Ordering Facility: [facility] Address: [address] [place] [address] Performed By: #### 2 4323-8, LIPNF, 80125-8, 2132-9 #### [facility] CLIA [id number] [address] [place] [address] [place] [address] [place] MA MAMMOGRAM SCREENING BILAT ERAL W/TOMOon 09-14-2023 MA MAMMOGRAM SCREENING BILATERAL W/ELIZABETH ORIGINAL FROM: [place] [address] PROCEDURE FOR: KARY SpencerDoron ALFARO [address] [place] [address] Home: PID#: [id number] Exam#: [id number] : 1965 Age: 57 TO: BENITO MEDINA [address] [place] [address] EXAMINATION: SCREENING DIGITAL BILATERAL MAMMOGRAM WITH TOMOSYNTHESIS, 09/14/2023 3:10 pm TECHNIQUE: Screening mammography of the bilateral breasts was performed with tomosynthesis. 2D standard and 3D tomosynthesis combination imaging performed through both breasts in the MLO and CC projection. Computer aided detection was utilized in the interpretation of this exam. COMPARISON: 09/11/2022, 08/20/2021 HISTORY: Breast cancer screening. FINDINGS: BREAST DENSITY: Scattered fibroglandular tissue There is a benign appearing intramammary lymph node in the right breast. There are benign appearing calcifications in both breasts. There are no significant masses or calcifications. IMPRESSION: No mammographic evidence of malignancy. Continued screening with annual mammograms is recommended. Laureano Butts risk calculations, generated with the history provided, report this patient's 10 year risk and lifetime risk for developing breast cancer at 2.8% and 8.1%, respectively. Based on this assessment tool, if the patient's calculated lifetime risk is below 20%, then the patient is considered at average risk for developing breast cancer. If the patient's calculated lifetime risk is at or above 20%, then the patient is considered high risk for developing breast cancer and may be a candidate for supplemental breast MRI screening in addition to annual mammographic screening per the [place] [employer]. BIRADS: MAMMOGRAM BI-RADS: 2: Benign finding RECALL: 1 year screening RECALL TYPE: mammo LETTER SENT: Normal BI-RADS 1 and 2 Interpreted by: Misha Coates MD Preliminary Report By: Misha Coates MD Electronically signed By Misha Coates MD Dictated Date: 09/14/2023 6:01:10 PM Prelim Date: 09/14/2023 6:06:10 PM Sign Date: 09/14/2023 6:06:10 PM Ordering Provider: BENITO MEDINA copy to: SRINI SHANNON MD, ph: [phone], fax: [phone] Cigar Packer: ASHLEY CASH RT (R)(M) letter sent: Normal BI-RADS 1 and 2 Mammogram BI-RADS: 2 Benign Normal [facility] ([place]) COLONOSCOPY SCREENINGon 12-0 [facility] XR Lumbar spine 3 Viewson IMPRESSION: MILD DEGENERATIVE CHANGE Bulldozer Operator: KARUNA Transcribe Date/Time: Feb 19 2023 7:14A Dictated by : SYL SALGUERO MD This examination was interpreted and the report reviewed and electronically signed by: SYL SALGUERO MD on Feb 19 2023 7:19AM [facility] DIVISION OF RADIOLOGY * * *Final Report* * * DATE OF EXAM: Feb 16 2023 10:03AM WOX 5228 - XR LUMBAR 3V AP/LAT/L5-S1 / PROCEDURE REASON: Lumbar back pain * * * * Physician Interpretation * * * * HISTORY: Lumbar back pain TECHNIQUE: Lumbar spine, 3 views COMPARISON: None. RESULT: Counting reference: Lumbosacral junction. For the purposes of this report, the lowest lumbar type disc space is considered to be L5-S1. There is normal alignment of the lumbar spine. Normal lumbar vertebral body heights. Mild disc space narrowing L1-2 with endplate osteophytes. There seems to be mild L5-S1 disc space narrowing although evaluation at this level is suboptimal because of positioning. Small anterior endplate osteophytes at a few other levels of lumbar spine. There may be mild facet degenerative change of the lower lumbar spine. Intact sacroiliac joints. Both hip joint spaces appear preserved. Cholecystectomy clips are present. DIVISION OF RADIOLOGY Provider, Rogeilo wilson [place] - 02/19/2023 * * *Final Report* * * DATE OF EXAM: Feb 16 2023 10:03AM WOX 5228 - XR LUMBAR 3V AP/LAT/L5-S1 / PROCEDURE REASON: Lumbar back pain * * * * Physician Interpretation * * * * HISTORY: Lumbar back pain TECHNIQUE: Lumbar spine, 3 views COMPARISON: None. RESULT: Counting reference: Lumbosacral junction. For the purposes of this report, the lowest lumbar type disc space is considered to be L5-S1. There is normal alignment of the lumbar spine. Normal lumbar vertebral body heights. Mild disc space narrowing L1-2 with endplate osteophytes. There seems to be mild L5-S1 disc space narrowing although evaluation at this level is suboptimal because of positioning. Small anterior endplate osteophytes at a few other levels of lumbar spine. There may be mild facet degenerative change of the lower lumbar spine. Intact sacroiliac joints. Both hip joint spaces appear preserved. Cholecystectomy clips are present. IMPRESSION IMPRESSION: MILD DEGENERATIVE CHANGE Bulldozer Operator: KARUNA Transcribe Date/Time: Feb 19 2023 7:14A Dictated by : SYL SALGUERO MD This examination was interpreted and the report reviewed and electronically signed by: SYL SALGUERO MD on Feb 19 2023 7:19AM EST [facility] XR Lumbar spine 3 ViewsOrder ed By: [facility] Provider on 02-19-2023 [facility] XR Lumbar spine 3 Viewson Radiology Study observation (narrative) [facility] LABORATORYOrdered By: SYSTEM SYSTEM on 09-11-2022 Cobalamin (Vitamin B12) [Mass/Vol] 549 pg/mL Invalid Interpretation Code 211 - 911 pg/mL AH ADM SS E2 [Mass/Vol] 26.00 pg/mL Invalid Interpretation Code AH ADM SS Progesterone [Mass/Vol] 0.7 ng/mL Invalid Interpretation Code AH ADM SS Testosterone [Mass/Vol] 93.81 ng/dL Invalid Interpretation Code AH ADM SS LABORATORYOrdered By: Goldie Ruth on 09-11-2022 Free T3 [Mass/Vol] 2.64 pg/mL Invalid Interpretation Code 2.30 - 4.00 pg/mL AO ADM SS Free T4 [Mass/Vol] 0.78 ng/dL Invalid Interpretation Code 0.76 - 1.46 ng/dL AO ADM SS TSH Qn 2.62 m[IU]/L Invalid Interpretation Code 0.36 - 3.74 mcIU/mL AO ADM SS Vit. D 25-Hydroxy 70.9 ng/mL Invalid Interpretation Code AO ADM SS XR CHEST 2V FRONTAL/LATon [facility] XR Chest PA and Lateralon IMPRESSION: No acute radiographic abnormality. Bulldozer Operator: KARUNA Transcribe Date/Time: Jun 22 2022 9:11A Dictated by : PARAM POLK MD This examination was interpreted and the report reviewed and electronically signed by: PARAM POLK MD on Jun 22 2022 9:11AM [facility] OF RADIOLOG[facility] * * *Final Report* * * DATE OF EXAM: Jun 22 2022 9:09AM WOX 5291 - XR CHEST 2V FRONTAL/LAT / PROCEDURE REASON: Wheeze * * * * Physician Interpretation * * * * EXAMINATION: CHEST RADIOGRAPH (2 VIEW FRONTAL & LATERAL) CLINICAL HISTORY: Wheeze MQ: XC2_6 EXAM DATE/TIME: 06/22/2022 9:09 AM COMPARISON: Chest x-ray dated November 06, 2018 RESULT: Lines, tubes, and devices: None. Lungs and pleura: No consolidation. No lung mass. No pleural effusion. No pneumothorax. Cardiomediastinal silhouette: Normal cardiomediastinal silhouette. Bones and soft tissues: Surgical clips are present in the upper abdomen. Mild degenerative changes in the spine. DIVISION OF RADIOLOGY Provider, [facility] Khoa Cifuentes - 06/22/2022 * * *Final Report* * * DATE OF EXAM: Jun 22 2022 9:09AM WOX 5291 - XR CHEST 2V FRONTAL/LAT / PROCEDURE REASON: Wheeze * * * * Physician Interpretation * * * * EXAMINATION: CHEST RADIOGRAPH (2 VIEW FRONTAL & LATERAL) CLINICAL HISTORY: Wheeze MQ: XC2_6 EXAM DATE/TIME: 06/22/2022 9:09 AM COMPARISON: Chest x-ray dated November 06, 2018 RESULT: Lines, tubes, and devices: None. Lungs and pleura: No consolidation. No lung mass. No pleural effusion. No pneumothorax. Cardiomediastinal silhouette: Normal cardiomediastinal silhouette. Bones and soft tissues: Surgical clips are present in the upper abdomen. Mild degenerative changes in the spine. IMPRESSION IMPRESSION: No acute radiographic abnormality. Bulldozer Operator: PSCB Transcribe Date/Time: Jun 22 2022 9:11A Dictated by : PARAM POLK MD This examination was interpreted and the report reviewed and electronically signed by: PARAM POLK MD on Jun 22 2022 9:11AM EST [facility] Radiology Study observation (narrative) [facility] XR Chest PA and LateralOrder ed By: Ccf Provider on 06-22-2022 [facility] STREP A MOLECULAR (POC)on Procedural Control Valid [facility] Strep A (POCT) Negative Negative [facility] LABORATORYOrdered By: Niya Gomez on 11-15-2021 Appearance (U) Cloudy *ABN* (11/15/21 9:28 PM) Invalid Interpretation Code Clear AO Auto Urine SS Bacteria LM.HPF (Urine sed) [#/Area] 2 /[HPF] Invalid Interpretation Code AO Auto Urine SS Bilirubin Ql (U) Negative (11/15/21 9:28 PM) Invalid Interpretation Code Negative AO Auto Urine SS Color (U) Yellow (11/15/21 9:28 PM) Invalid Interpretation Code AO Auto Urine SS Glucose Test strip (U) [Mass/Vol] Negative Invalid Interpretation Code Negativemg/d L AO Auto Urine SS Hemoglobin Auto test strip (U) [Mass/Vol] Trace *ABN* (11/15/21 9:28 PM) Invalid Interpretation Code Negative AO Auto Urine SS Ketones Ql (U) Negative Invalid Interpretation Code Negativemg/d L AO Auto Urine SS UA Leuk Est Small *ABN* (11/15/21 9:28 PM) Invalid Interpretation Code Negative AO Auto Urine SS UA Nitrite Negative (11/15/21 9:28 PM) Invalid Interpretation Code Negative AO Auto Urine SS UA pH 6.5 (11/15/21 9:28 PM) Invalid Interpretation Code 5.0 - 8.0 AO Auto Urine SS UA Protein Negative Invalid Interpretation Code Negativemg/d L AO Auto Urine SS UA RBC None Seen /HPF Invalid Interpretation Code None Seen/HPF AO Auto Urine SS UA Spec Grav 1.020 (11/15/21 9:28 PM) Invalid Interpretation Code 1.015-1.025 AO Auto Urine SS UA Specimen Type Clean Catch (11/15/21 9:28 PM) Invalid Interpretation Code AO Auto Urine SS UA Squam Epithelial 0-5 /HPF Invalid Interpretation Code None Seen/HPF AO Auto Urine SS UA Urobilinogen 0.2 E.U./dL Invalid Interpretation Code 0.2-1.0E.U./ dL AO Auto Urine SS WBC LM.HPF (Urine sed) [#/Area] 5-10 /HPF Invalid Interpretation Code None Seen/HPF AO Auto Urine SS Basophil, Absolute 0.10 103/mcL Invalid Interpretation Code 0.00 - 0.19 10^3/mcL AO Auto Heme SS Basophils/100 WBC (Bld) 0.5 % Invalid Interpretation Code 0.0 - 2.5 % AO Auto Heme SS Calcium [Mass/Vol] 8.9 mg/dL Invalid Interpretation Code 8.4 - 10.2 mg/dL AO ADM SS Chloride [Moles/Vol] 100 mmol/L Invalid Interpretation Code 98 - 107 mmol/L AO ADM SS CO2 [Moles/Vol] 29 mmol/L Invalid Interpretation Code 22 - 29 mmol/L AO ADM SS Creatinine [Mass/Vol] 0.90 mg/dL Invalid Interpretation Code 0.55 - 1.02 mg/dL AO ADM SS Electrolyte Balance 10.0 mEq/L Invalid Interpretation Code 4.0 - 15.0 mEq/L AO ADM SS Eosinophil, Absolute 0.00 103/mcL Invalid Interpretation Code 0.00 - 0.40 10^3/mcL AO Auto Heme SS Eosinophils/100 WBC (Bld) 0.5 % Invalid Interpretation Code 0.0 - 7.0 % AO Auto Heme SS Erythrocyte distribution width (RBC) [Ratio] 13.1 % Invalid Interpretation Code 11.5 - 14.5 % AO Auto Heme SS Glucose [Mass/Vol] 106 mg/dL Invalid Interpretation Code 70 - 105 mg/dL AO ADM SS Hematocrit (Bld) [Volume fraction] 43.0 % Invalid Interpretation Code 37.0 - 47.0 % AO Auto Heme SS Hemoglobin (Bld) [Mass/Vol] 14.6 G/dL Invalid Interpretation Code 12.0 - 16.0 G/dL AO Auto Heme SS Lymphocyte, Absolute 2.40 103/mcL Invalid Interpretation Code 0.77 - 3.85 10^3/mcL AO Auto Heme SS Lymphocytes/100 WBC (Bld) 22.2 % Invalid Interpretation Code 10.0 - 50.0 % AO Auto Heme SS MCH (RBC) [Entitic mass] 29.3 pg Invalid Interpretation Code 27.0 - 31.2 pg AO Auto Heme SS MCHC (RBC) [Mass/Vol] 33.9 G/dL Invalid Interpretation Code 33.0 - 37.0 G/dL AO Auto Heme SS MCV (RBC) [Entitic vol] 86.3 fL Invalid Interpretation Code 80.0 - 94.0 fL AO Auto Heme SS Monocyte, Absolute 0.80 103/mcL Invalid Interpretation Code 0.15 - 1.00 10^3/mcL AO Auto Heme SS Monocytes/100 WBC (Bld) 7.2 % Invalid Interpretation Code 1.7 - 13.0 % AO Auto Heme SS Neutrophil, Absolute 7.40 103/mcL Invalid Interpretation Code 2.85 - 6.16 10^3/mcL AO Auto Heme SS Neutrophils/100 WBC (Bld) 69.6 % Invalid Interpretation Code 37.0 - 80.0 % AO Auto Heme SS Platelet mean volume (Bld) [Entitic vol] 8.0 fL Invalid Interpretation Code 7.4 - 10.4 fL AO Auto Heme SS Platelets (Bld) [#/Vol] 429 103/mcL Invalid Interpretation Code 130 - 400 10^3/mcL AO Auto Heme SS Potassium [Moles/Vol] 3.4 mmol/L Invalid Interpretation Code 3.5 - 5.1 mmol/L AO ADM SS RBC (Bld) [#/Vol] 4.98 106/mcL Invalid Interpretation Code 4.20 - 5.40 10^6/mcL AO Auto Heme SS Sodium [Moles/Vol] 139 mmol/L Invalid Interpretation Code 136 - 145 mmol/L AO ADM SS Troponin I.cardiac DL <= 0.01 ng/mL [Mass/Vol] 6.0 ng/L Invalid Interpretation Code 0.0 - 51.4 ng/L AO ADM SS Urea nitrogen [Mass/Vol] 12 mg/dL Invalid Interpretation Code 7 - 18 mg/dL AO ADM SS Urea nitrogen/Creatinine [Mass ratio] 13 ratio Invalid Interpretation Code 7 - 27 ratio AO ADM SS WBC (Bld) [#/Vol] 10.70 103/mcL Invalid Interpretation Code 4.60 - 10.80 10^3/mcL AO Auto Heme SS LABORATORYOrdered By: SYSTEM SYSTEM on 11-15-2021 GFR 78 ml/min/1.73sqm Invalid Interpretation Code AO Chemistry S GFR Non- 65 ml/min/1.73sqm Invalid Interpretation Code AO Chemistry S CORONAVIRUS 19, THOMPSON SCREENon 04-15-2020 COVID-19,THOMPSON Not Detected Normal Not Detect [facility] Comment on above: Result Comment: This test was developed and its performance characteristics determined by [facility]. This test has not been FDA cleared or approved. This test has been authorized by FDA under an Emergency Use Authorization (EUA). This test is only authorized for the duration of time the declaration that circumstances exist justifying the authorization of the emergency use of in vitro diagnostic tests for detection of SARS-CoV-2 virus and/or diagnosis of COVID-19 infection under section 564(b)(1) of the Act, 21 U.S.C. 360bbb-3(b)(1), unless the authorization is terminated or revoked sooner. When diagnostic testing is negative, the possibility of a false negative result should be considered in the context of a patient's recent exposures and the presence of clinical signs and symptoms consistent with COVID-19. An individual without symptoms of COVID-19 and who is not shedding SARS-CoV-2 virus would expect to have a negative (not detected) result in this assay. TESTING PERFORMED AT [facility]. ORIGINAL REPORT ON FILE IN LAB CONTAINS ADDITIONAL TEST SITE INFORMATION. Performed By: #### L [id number] #### [facility] [address] [place], [place], [id number] Vital Signs Date Time Vital Sign Value Performing Clinician Facility 03-29-2025 10:48-0400 Body mass index (BMI) [Ratio] 36.04 kg/m2 Frieda Shah [employer] Work Phone: [facility] 03-29-2025 10:48-0400 Body temperature 98.8 [degF] Frieda Shah [employer] Work Phone: [facility] 03-29-2025 10:48-0400 Body weight 99.3 kg Frieda Shah [employer] Work Phone: [facility] 03-29-2025 10:48-0400 Diastolic blood pressure 90 mm[Hg] Frieda Shah [employer] Work Phone: [facility] 03-29-2025 10:48-0400 Heart rate 95 /min Frieda Shah [employer] Work Phone: [facility] 03-29-2025 10:48-0400 Respiratory rate 19 /min Frieda Shah [employer] Work Phone: [facility] 03-29-2025 10:48-0400 SaO2% (BldA) [Mass fraction] 97 % Frieda Shah [employer] Work Phone: [facility] 03-29-2025 10:48-0400 Systolic blood pressure 128 mm[Hg] Frieda Shah [employer]CELLENCE [employer]ACH Work Phone: [facility] 02-19-2025 08:01-0400 Body mass index (BMI) [Ratio] 36.05 kg/m2 Mali Suppan [employer] Work Phone: [facility] 02-19-2025 08:01-0400 Body weight 99.34 kg Mali Suppan [employer] Work Phone: [facility] 02-19-2025 08:01-0400 Diastolic blood pressure 84 mm[Hg] Mali Suppan [employer] Work Phone: [facility] 02-19-2025 08:01-0400 Heart rate 83 /min Mali Suppan [employer]CELLENCE [employer]ACH Work Phone: [facility] 02-19-2025 08:01-0400 SaO2% (BldA) [Mass fraction] 99 % Mali Suppan [employer]CELLENCE COACH Work Phone: [facility] 02-19-2025 08:01-0400 Systolic blood pressure 136 mm[Hg] Mali Suppan [employer]CELLENCE COACH Work Phone: [facility] 08-22-2024 08:57-0500 Body height 166 cm Mali Suppan [employer]CELLENCE COACH Work Phone: [facility] 08-22-2024 08:57-0500 Body mass index (BMI) [Ratio] 35.39 kg/m2 Mali Suppan [employer]LLENCE [employer] Work Phone: [facility] 08-22-2024 08:57-0500 Body weight 97.52 kg Mali Suppan [employer]CELLENCE COACH Work Phone: [facility] 08-22-2024 08:57-0500 Diastolic blood pressure 78 mm[Hg] Mali Suppan [employer]CELLENCE CO[employer] Work Phone: [facility] 08-22-2024 08:57-0500 Heart rate 69 /min Mali Suppan [employer]ENCE [employer] Work Phone: [facility] 08-22-2024 08:57-0500 Respiratory rate 16 /min Mali Suppan [employer]CELLENCE COACH Work Phone: [facility] 08-22-2024 08:57-0500 SaO2% (BldA) [Mass fraction] 95 % Mali Suppan [employer]CELLENCE COACH Work Phone: [facility] 08-22-2024 08:57-0500 Systolic blood pressure 130 mm[Hg] Mali Suppan [employer]ENCE [employer] Work Phone: [facility] 02-17-2024 10:17-0400 Body mass index (BMI) [Ratio] 36 kg/m2 NA Moreno PA-C Work Phone: [facility] 02-17-2024 10:17-0400 Body weight 98.88 kg NA Moreno PA-C Work Phone: [facility] 02-17-2024 10:17-0400 Diastolic blood pressure 82 mm[Hg] NA Moreno PA-C Work Phone: [facility] 02-17-2024 10:17-0400 Heart rate 18 /min NA Moreno PA-C Work Phone: [facility] 02-17-2024 10:17-0400 Respiratory rate 98 /min NA Moreno PA-C Work Phone: [facility] 02-17-2024 10:17-0400 Systolic blood pressure 130 mm[Hg] NA Moreno PA-C Work Phone: [facility] 09-09-2023 13:29-0500 Diastolic blood pressure 79 mm[Hg] Noris Mott MD Work Phone: [facility] 09-09-2023 13:29-0500 Heart rate 92 /min Noris Mott MD Work Phone: [facility] 09-09-2023 13:29-0500 Respiratory rate 16 /min Noris Mott MD Work Phone: [facility] 09-09-2023 13:29-0500 SaO2% (BldA) [Mass fraction] 94 % Noris Mott MD Work Phone: [facility] 09-09-2023 13:29-0500 Systolic blood pressure 142 mm[Hg] Noris Mott MD Work Phone: [facility] 09-09-2023 12:00-0500 Body temperature 97.7 [degF] Noris Mott MD Work Phone: [facility] 09-09-2023 12:00-0500 Body weight 99.7 kg Noris Mott MD Work Phone: [facility] 08-19-2023 09:46-0500 Body temperature 99.1 [degF] NA Moreno PA-C Work Phone: [facility] 08-19-2023 08:55-0500 Body weight 100.7 kg NA Moreno PA-C Work Phone: [facility] 08-19-2023 08:55-0500 Diastolic blood pressure 80 mm[Hg] NA Moreno PA-C Work Phone: [facility] 08-19-2023 08:55-0500 Heart rate 106 /min NA Moreno PA-C Work Phone: [facility] 08-19-2023 08:55-0500 Respiratory rate 16 /min NA Moreno PA-C Work Phone: [facility] 08-19-2023 08:55-0500 SaO2% (BldA) [Mass fraction] 96 % NA Moreno PA-C Work Phone: [facility] 08-19-2023 08:55-0500 Systolic blood pressure 122 mm[Hg] NA Moreno PA-C Work Phone: [facility] 03-03-2023 14:07-0400 Body height 165.7 cm Niya Juni PA-C Work Phone: [facility] 03-03-2023 14:07-0400 Body temperature 97.39 [degF] Niya [place]town PA-C Work Phone: [facility] 03-03-2023 14:07-0400 Body weight 99.7 kg Niya Juni PA-C Work Phone: [facility] 03-03-2023 14:07-0400 Diastolic blood pressure 84 mm[Hg] Niya [place] PA-C Work Phone: [facility] 03-03-2023 14:07-0400 Heart rate 104 /min Niya Juni PA-C Work Phone: [facility] 03-03-2023 14:07-0400 SaO2% (BldA) [Mass fraction] 93 % Niya [place] PA-C Work Phone: [facility] 03-03-2023 14:07-0400 Systolic blood pressure 124 mm[Hg] Niya Ramosf PA-C Work Phone: [facility] 08-17-2022 09:12-0500 Body weight 97.07 kg NA Moreno PA-C Work Phone: [facility] 08-17-2022 09:12-0500 Diastolic blood pressure 86 mm[Hg] NA Moreno PA-C Work Phone: [facility] 08-17-2022 09:12-0500 Heart rate 95 /min NA Moreno PA-C Work Phone: [facility] 08-17-2022 09:12-0500 SaO2% (BldA) [Mass fraction] 98 % NA Moreno PA-C Work Phone: [facility] 08-17-2022 09:12-0500 Systolic blood pressure 128 mm[Hg] NA Moreno PA-C Work Phone: [facility] 07-13-2022 14:55-0400 Body temperature 98.49 [degF] Alisha Bogner PA-C Work Phone: [facility] 07-13-2022 14:55-0400 Body weight 99.52 kg Alisha Bogner PA-C Work Phone: [facility] 07-13-2022 14:55-0400 Diastolic blood pressure 96 mm[Hg] Alisha Bogner PA-C Work Phone: [facility] 07-13-2022 14:55-0400 Heart rate 95 /min Alisha Bogner PA-C Work Phone: [facility] 07-13-2022 14:55-0400 Respiratory rate 21 /min Alisha Bogner PA-C Work Phone: [facility] 07-13-2022 14:55-0400 SaO2% (BldA) [Mass fraction] 98 % Alisha Bogner PA-C Work Phone: [facility] 07-13-2022 14:55-0400 Systolic blood pressure 156 mm[Hg] Alisha Florentino PA-C Work Phone: [facility] 06-22-2022 08:25-0400 Body temperature 98.29 [degF] Dale Newton [employer] Work Phone: [facility] 06-22-2022 08:25-0400 Body weight 98.07 kg Dale Glez [employer] Work Phone: [facility] 06-22-2022 08:25-0400 Diastolic blood pressure 94 mm[Hg] Dale Newton [employer] Work Phone: [facility] 06-22-2022 08:25-0400 Heart rate 114 /min Dale Glez [employer] Work Phone: [facility] 06-22-2022 08:25-0400 Respiratory rate 18 /min Dale Newton [employer]CELLENCE COACH Work Phone: [facility] 06-22-2022 08:25-0400 SaO2% (BldA) [Mass fraction] 95 % Dale Glez [employer]ING [employer]CELLENCE COACH Work Phone: [facility] 06-22-2022 08:25-0400 Systolic blood pressure 152 mm[Hg] Dale Glez [employer]CELLENCE [employer]ACH Work Phone: [facility] 04-11-2022 09:11-0400 Body temperature 97.5 [degF] Frieda Shah [employer] Work Phone: [facility] 04-11-2022 09:11-0400 Body weight 95.71 kg Frieda Shah [employer] Work Phone: [facility] 04-11-2022 09:11-0400 Diastolic blood pressure 96 mm[Hg] Frieda Shah [employer]CELLENCE [employer] Work Phone: [facility] 04-11-2022 09:11-0400 Heart rate 103 /min Frieda Shah [employer] Work Phone: [facility] 04-11-2022 09:11-0400 Respiratory rate 20 /min Frieda Shah [employer] Work Phone: [facility] 04-11-2022 09:11-0400 SaO2% (BldA) [Mass fraction] 94 % Frieda Shah [employer]CELLENCE COACH Work Phone: [facility] 04-11-2022 09:11-0400 Systolic blood pressure 132 mm[Hg] Frieda Shah [employer]LL[employer] Work Phone: [facility] 02-13-2022 09:26-0400 Body weight 94.35 kg NA Moreno PA-C Work Phone: [facility] 02-13-2022 09:26-0400 Diastolic blood pressure 78 mm[Hg] NA Moreno PA-C Work Phone: [facility] 02-13-2022 09:26-0400 Heart rate 82 /min NA Moreno PA-C Work Phone: [facility] 02-13-2022 09:26-0400 Respiratory rate 16 /min NA Moreno PA-C Work Phone: [facility] 02-13-2022 09:26-0400 SaO2% (BldA) [Mass fraction] 96 % NA Moreno PA-C Work Phone: [facility] 02-13-2022 09:26-0400 Systolic blood pressure 120 mm[Hg] NA Moreno PA-C Work Phone: [facility] 11-15-2021 21:59-0500 Diastolic blood pressure 83 mm[Hg] RADHA GOMEZ DO [facility] 11-15-2021 21:59-0500 Heart rate 84 /min RADHA GOMEZ DO [facility] 11-15-2021 21:59-0500 Respiratory rate 19 /min RADHA GOMEZ DO [facility] 11-15-2021 21:59-0500 Systolic blood pressure 136 mm[Hg] RADHA GOMEZ DO [facility] 11-15-2021 21:13-0500 Diastolic blood pressure 76 mm[Hg] RADHA GOMEZ DO [facility] 11-15-2021 21:13-0500 Heart rate 86 /min RADHA GOMEZ DO [facility] 11-15-2021 21:13-0500 Mean blood pressure 97 mm[Hg] RADHA GOMEZ DO [facility] 11-15-2021 21:13-0500 Respiratory rate 18 /min RADHA GOMEZ DO [facility] 11-15-2021 21:13-0500 Systolic blood pressure 139 mm[Hg] RADHA GOMEZ DO [facility] 11-15-2021 20:12-0500 Body temperature 98.42 [degF] RADHA GOMEZ DO [facility] 11-15-2021 20:12-0500 Diastolic blood pressure 97 mm[Hg] RADHA GOMEZ DO [facility] 11-15-2021 20:12-0500 Heart rate 101 /min RADHA GOMEZ DO [facility] 11-15-2021 20:12-0500 Mean blood pressure 112 mm[Hg] RADHA GOMEZ DO [facility] 11-15-2021 20:12-0500 Respiratory rate 18 /min RADHA GOMEZ DO [facility] 11-15-2021 20:12-0500 Systolic blood pressure 141 mm[Hg] RADHA GOMEZ DO [facility] Encounters Encounter Date Encounter Type Care Provider Facility Start: 04-02-2025 End: 04-02-2025 Telephone encounter Mali Smith APRN.EXCELLENCE COACH Work Phone: [facility] [place] Comment on above: Medication Problem; side effects Start: 03-31-2025 End: 03-31-2025 ambulatory Elizabet Gutierrez RN NURSE [employer] Comment on above: Medication Question Start: 03-30-2025 End: 05-30-2025 Follow-up encounter Noemi Garcia APRN.EXCELLENCE COACH Work Phone: [facility] Start: 03-29-2025 End: 03-29-2025 Subsequent hospital visit by physician Xr [facility] [place] Work Phone: Radiology Comment on above: Acute cough [R05.1] Start: 03-29-2025 End: 03-29-2025 Patient encounter procedure Frieda Shah APRN.EXCELLENCE COACH Work Phone: [facility] Comment on above: Acute cough (Primary Dx); URI, acute; Acute bronchitis, unspecified organism Start: 03-29-2025 End: 03-30-2025 ambulatory Mali Smith APRN.EXCELLENCE COACH Work Phone: [facility] [place] Comment on above: Kellyfrkim Start: 02-19-2025 End: 02-19-2025 Office outpatient visit 25 minutes Mali Demar Sarah [employer] Work Phone: [facility] [place] Comment on above: Motion sickness, seq uela (Primary Dx); Hyperlipidemia, mixed; Anxiety with depression; Encounter for screening examination for other mental health and behavioral disorders; Screening for depression; Encounter for immunization Start: 02-19-2025 End: 02-19-2025 ambulatory MALI A SUPPAN Facility:[facility] Start: 09-18-2024 End: 09-18-2024 ambulatory RANJANA KIMBLE SYRUPER-C Facility:[facility] Start: 09-18-2024 End: 09-18-2024 Patient encounter procedure RANJANA Deamr KIMBLE SYRUPER-C [facility] Start: 08-22-2024 End: 08-22-2024 ambulatory MALI A SUPPAN Facility:[facility] Start: 08-22-2024 End: 08-22-2024 Periodic preventive med est patient 40-64yrs Mali Demar Sarah [employer]ING [employer]CELLENCE COACH Work Phone: [facility] [place] Comment on above: Hyperlipidemia, mixe d (Primary Dx); Anxiety with depression; Encounter for immunization; Essential hypertension; Special screening examination for viral disease; Screening for diabetes mellitus; Vitamin D deficiency Start: 08-22-2024 End: 08-22-2024 ambulatory MALI A SUPPAN Facility:[facility] Start: 06-30-2024 End: 06-30-2024 Refill Melia Moreno PA-C Work Phone: [facility] [place] Comment on above: Refill Request Start: 02-22-2024 ambulatory Melia escobar PA-C Work Phone: [facility] [place] Comment on above: Recent visit on February 16 Start: 02-17-2024 End: 02-17-2024 Patient encounter procedure Melia Moreno PA-C Work Phone: [facility] [place] Comment on above: Benign hypertension (Primary Dx); Hyperlipidemia, mixed; Vestibular neuronitis of left ear; Coccyx pain; Adenomatous polyp of ascending colon; Post menopausal syndrome; Adjustment reaction, depressive, brief; Anxiety with depression; Tick bite of right thigh, subsequent encounter; Somatic dysfunction of left sacroiliac joint Start: 12-16-2023 Refill Srini Shannon MD Work Phone: [facility] Comment on above: Refill Request Start: 09-16-2023 Telephone encounter Noris Abarca MD Work Phone: General Surgery Start: 09-14-2023 End: 09-15-2023 ambulatory BENITO MEDINA [employer]LLENCE COACH Facility:[facility] Start: 09-14-2023 End: 09-14-2023 Patient encounter procedure BENITO Callie CAROL [employer]CELLENCE COACH [facility] Start: 09-09-2023 End: 09-09-2023 Subsequent hospital visit by physician Noris Mott MD Work Phone: Ambulatory Surgery Comment on above: History of colonic p olyps [Z86.010] Start: 08-19-2023 End: 08-19-2023 Patient encounter procedure Melia Moreno PA-[employer] Work Phone: [facility] Comment on above: Essential hypertensi on (Primary Dx); Hyperlipidemia, mixed; Anxiety with depression; Adjustment reaction, depressive, brief; Vestibular neuronitis of left ear; Acute upper respiratory infection Start: 06-22-2023 Refill Melia Velasco on [employer] Work Phone: [facility] Comment on above: Refill Request Start: 03-04-2023 Refill Melia Velasco on PA-C Work Phone: [facility] Comment on above: Refill Request Start: 03-03-2023 End: 03-03-2023 Patient encounter procedure Niya Alfredo PA-C Work Phone: General Surgery Comment on above: History of colonic p olyps (Primary Dx); Tubular adenoma; Encounter for screening for malignant neoplasm of colon Start: 02-16-2023 End: 02-16-2023 Subsequent hospital visit by physician Elodia [facility] [place] Work Phone: Radiology Comment on above: Lumbar back pain [M5 4.50] Start: 12-01-2022 Refill Melia Velasco on PA-C Work Phone: Family [facility] [place] Comment on above: Refill Request Start: 10-21-2022 End: 10-21-2022 Nursing evaluation of patient and report Mi Nurse Work Phone: Family [facility] [place] Comment on above: Encounter for immuni zation (Primary Dx) Start: 10-20-2022 Telephone encounter Melia Moreno PA-C Work Phone: [facility] [place] Comment on above: Orders Start: 10-15-2022 ambulatory Melia Velasco on PA-C Work Phone: [facility] [place] Comment on above: Vitamin D bloodwork Start: 09-11-2022 End: 09-11-2022 Patient encounter procedure SALLIE ROMANO [employer]CELLENCE COACH [facility] Start: 08-21-2022 Telephone encounter Melia Moreno PA-C Work Phone: [facility] [place] Comment on above: Patient Question Start: 08-17-2022 End: 08-17-2022 Patient encounter procedure Melia Moreno PA-C Work Phone: [facility] [place] Comment on above: Essential hypertensi on (Primary Dx); Hyperlipidemia, mixed; Anxiety with depression; Adjustment reaction, depressive, brief; Post menopausal syndrome; Adenomatous polyp of ascending colon; Vitamin D deficiency Start: 08-09-2022 ambulatory Melia Velasco on PA-C Work Phone: [facility] [place] Comment on above: Upcoming blood work for my Aug 17 appt. Start: 07-13-2022 End: 07-13-2022 Office outpatient visit 15 minutes Alisha Florentino PA-C Work Phone: [facility] Comment on above: Tick bite of abdomen , initial encounter (Primary Dx) Start: 06-22-2022 End: 06-22-2022 Subsequent hospital visit by physician Xr [facility] [place] Work Phone: Radiology Comment on above: Wheeze [R06.2] Start: 06-22-2022 End: 06-22-2022 Patient encounter procedure Dale Glez APRN.EXCELLENCE COACH Work Phone: [facility] Comment on above: URI, acute (Primary Dx); Wheeze Start: 06-11-2022 Refill Melia escobar PA-C Work Phone: [facility] Comment on above: Refill Request Start: 04-12-2022 Telephone encounter Jessica Jarod AG.EXCELLENCE COACH Work Phone: [facility] Comment on above: Results Start: 04-11-2022 End: 04-11-2022 Patient encounter procedure Frieda Shah APRN.EXCELLENCE COACH Work Phone: [facility] Comment on above: Viral illness (Prima ry Dx); Pharyngitis, unspecified etiology Start: 02-13-2022 End: 02-13-2022 Patient encounter procedure Melia Moreno PA-C Work Phone: [facility] Comment on above: Essential hypertensi on (Primary Dx); Anxiety with depression; Hyperlipidemia, mixed Start: 02-06-2022 End: 02-06-2022 Patient encounter procedure SYLVIA ARENAS APRN-CNM [facility] Start: 11-15-2021 End: 11-15-2021 Emergency department patient visit RADHA GOMEZ DO [facility] Procedures Date Procedure Procedure Detail Performing Clinician Start: 03-29-2025 COVID & INFLUENZA A/ B & RSV PCR, ROUTINE Frieda Shah APRN.EXCELLENCE COACH Work Phone: Start: 03-29-2025 Radiologic exam ches t 2 views Frieda Shah APRN.EXCELLENCE COACH Work Phone: Start: 02-19-2025 Adult depression scr eening assessment Mali Smith PRINTING ROLLER POLISHER.EXCELLENCE COACH Work Phone: Start: 08-22-2024 Lipid 1995 panel - S claudia or Plasma Mali Smith PRINTING ROLLER POLISHER.EXCELLENCE COACH Work Phone: Start: 02-29-2024 Lipid 1996 panel - S claudia or Plasma [facility] [place] Work Phone: Start: 02-17-2024 Adult depression scr eening assessment X[facility] [place] Work Phone: Start: 09-09-2023 Colonoscopy flx dx w /collj spec when pfrmd Niya PA-C Work Phone: Start: 09-09-2023 Colonoscopy Noris Mott MD Work Phone: Start: 02-16-2023 Radex spine lumbosac ral 2/3 views Melia BrownCurtis Moreno PA-C Work Phone: Start: 12-14-2022 Lipid 1996 panel - S claudia or Plasma NA Moreno PA-C Work Phone: Start: 09-11-2022 Mammography NA Moreno PA-C Work Phone: Start: 06-22-2022 Radiologic exam ches t 2 views Dale Glez PRINTING ROLLER POLISHER.EXCELLENCE COACH Work Phone: Start: 04-11-2022 STREP A MOLECULAR (POC) Frieda Shah PRINTING ROLLER POL[employer]ER.EXCELLENCE COACH Work Phone: Start: 02-13-2022 Adult depression scr eening assessment NA Moreno PA-C Work Phone: Start: 08-27-2021 Mammography NA Moreno PA-C Work Phone: Start: 08-19-2020 Colonoscopy NA Moreno PA-C Work Phone: Cholecystectomy RADHA GRANT [facility] DO Plan of Treatment Date Care Activity Detail Author Start: 10-21-2032 Urine microalbumin profile [facility] Start: 08-22-2029 Lipid panel Lipid Screening [facility] Start: 02-28-2029 Lipid panel Lipid Screening [facility] Start: 09-09-2028 Screening for malign ant neoplasm of colon [facility] Start: 08-13-2028 HPV Testing HPV Testing [facility] Start: 08-13-2028 Pap Testing Pap Testing [facility] Start: 08-13-2028 Screening for malign ant neoplasm of cervix [facility] Start: 12-15-2027 Lipid 1996 panel - S claudia or Plasma Lipid Screening [facility] Start: 12-15-2027 Lipid panel Lipid Screening [facility] Start: 12-15-2027 LIPID SCREEN LIPID SCREEN [facility] Start: 08-22-2027 Diabetes Screening Diabetes Screenin g [facility] Start: 08-12-2027 LIPID SCREEN LIPID SCREEN [facility] Start: 02-28-2027 Diabetes Screening Diabetes Screenin g [facility] Start: 09-09-2026 Colonoscopy Colonoscopy [facility] Start: 09-09-2026 Colorectal Cancer Screening Colorectal Cancer Screening [facility] Start: 08-13-2026 Screening for malign ant neoplasm of cervix Cervical Cancer Screening [facility] Start: 08-08-2026 LIPID SCREEN LIPID SCREEN [facility] Start: 02-19-2026 Annual PCP Team Wool Puller oxana Disease Visit Annual PCP Team Chronic Disease Visit [facility] Start: 02-19-2026 Anxiety Screening Anxiety Screening [facility] Start: 02-19-2026 Depression Screening Depression Scre ening [facility] Start: 02-16-2026 DIABETES SCREEN DIABETES SCREEN [facility] Start: 02-16-2026 Diabetes Screening Diabetes Screenin g [facility] Start: 09-18-2025 Screening for malign ant neoplasm of breast Mammogram Screening [facility] Start: 08-23-2025 End: 08-23-2025 Patient encounter procedure 08/23/2025 8:00 AM EST Office Visit [facility] [address] [facility] [place] [id number] Mali Smith, PRINTING ROLLER POLISHER.EXCELLENCE COACH [address] [place], [place] [id number] 6 month exam [facility] Comment on above: 6 month exam Start: 08-22-2025 BP Controlled (<130/80) BP Controlle d (<130/80) [facility] Start: 08-22-2025 Covid-19 Vaccine ( season) Covid-19 Vaccine () [facility] Comment on above: Postponed from 06/04 (Declined at this time) Start: 08-12-2025 DIABETES SCREEN DIABETES SCREEN [facility] Start: 06-04-2025 Influenza vaccination Influenza Vacc ine (#1) [facility] Start: 02-19-2025 End: 02-19-2025 Patient encounter procedure 02/19/2025 8:00 AM EDT Office Visit [facility] [address] [place], [place] [id number] Mali Smith APRN.EXCELLENCE COACH [address] [place], [place] [id number] 6 month exam [facility] [place] Comment on above: 6 month exam Start: 02-16-2025 Annual PCP Team Wool Puller oxana Disease Visit Annual PCP Team Chronic Disease Visit [facility] Start: 02-16-2025 Anxiety Screening Anxiety Screening [facility] Start: 02-16-2025 Depression Screening Depression Scre ening [facility] Start: 02-13-2025 DIABETES SCREEN DIABETES SCREEN [facility] Start: 09-15-2024 Screening for malign ant neoplasm of breast Mammogram Screening [facility] Comment on above: Postponed from 09/14 (Currently Scheduled) Start: 09-14-2024 Screening for malign ant neoplasm of breast Mammogram Screening [facility] Start: 08-22-2024 End: 11-21-2024 25-hydroxyvitamin D3 [Mass/volume] in Serum or Plasma [facility] Comment on above: Expected: 08/22/2024 , Expires: 11/21/2024 Start: 08-22-2024 End: 11-21-2024 Cobalamin (Vitamin B12) [Mass/volume] in Serum or Plasma [facility] Comment on above: Expected: 08/22/2024 , Expires: 11/21/2024 Start: 08-22-2024 End: 11-21-2024 Comprehensive metabolic 2000 panel - Serum or Plasma [facility] Comment on above: Expected: 08/22/2024 , Expires: 11/21/2024 Start: 08-22-2024 End: 11-21-2024 Hemoglobin A1c in Blood [facility] Comment on above: Expected: 08/22/2024 , Expires: 11/21/2024 Start: 08-22-2024 End: 11-21-2024 Hepatitis C virus Ab [Presence] in Serum [facility] Work Phone: Comment on above: Expected: 08/22/2024 , Expires: 11/21/2024 Start: 08-22-2024 End: 11-21-2024 LIPID PANEL, NONFASTING [facility] Comment on above: Expected: 08/22/2024 , Expires: 11/21/2024 Start: 08-22-2024 End: 11-21-2024 Magnesium [Mass/volume] in Serum or Plasma [facility] Comment on above: Expected: 08/22/2024 , Expires: 11/21/2024 Start: 08-22-2024 End: 08-22-2024 Patient encounter procedure 08/22/2024 8:00 AM EST Office Visit [facility] [address] [place] [address] Melia Moreno PA-C [address] [place] [address] 6 month follow up / physical [facility] Comment on above: 6 month follow up / physical Start: 08-19-2024 Annual PCP Team Wool Puller oxana Disease Visit Annual PCP Team Chronic Disease Visit [facility] Start: 08-19-2024 Covid-19 Vaccine () Covid-19 Vaccine () [facility] Comment on above: Postponed from 06/04 (Declined at this time) Start: 08-08-2024 DIABETES SCREEN DIABETES SCREEN [facility] Start: 06-04-2024 Covid-19 Vaccine () Covid-19 Vaccine () [facility] Start: 06-04-2024 Influenza vaccination C [facility] Start: 02-24-2024 End: 05-25-2024 CBC W Auto Differential panel - Blood COMPLETE BLOOD COUNT AND DIFFERENTIAL Lab Routine Adjustment reaction, depressive, brief Benign hypertension Expected: 02/24/2024, Expires: 05/25/2024 [facility] Comment on above: Expected: 02/24/2024 , Expires: 05/25/2024 Start: 02-24-2024 End: 05-25-2024 Comprehensive metabolic 2000 panel - Serum or Plasma COMPREHENSIVE METABOLIC PANEL Lab Routine Adjustment reaction, depressive, brief Hyperlipidemia, mixed Expected: 02/24/2024, Expires: 05/25/2024 [facility] Work Phone: Comment on above: Expected: 02/24/2024 , Expires: 05/25/2024 Start: 02-24-2024 End: 05-25-2024 Lipid 1996 panel - Serum or Plasma LIPID PANEL BASIC Lab Routine Hyperlipidemia, mixed Expected: 02/24/2024, Expires: 05/25/2024 [facility] Comment on above: Expected: 02/24/2024 , Expires: 05/25/2024 Start: 02-22-2024 End: 02-22-2024 ambulatory 02/22/2024 7:45 AM EDT Results Only [facility] [address] [place] [address] [facility] Start: 02-17-2024 ANNUAL PCP TEAM HARNESS MAKER OXANA DISEASE VISIT ANNUAL PCP TEAM CHRONIC DISEASE VISIT [facility] Start: 02-17-2024 End: 05-18-2024 Borrelia burgdorferi IgG and IgM panel - Serum LYME AB LATE >30 DAYS SYMPTOMS Lab Routine Tick bite of right thigh, subsequent encounter Expected: 02/17/2024, Expires: 05/18/2024 [facility] Work Phone: Comment on above: Expected: 02/17/2024 , Expires: 05/18/2024 Start: 10-04-2023 Depression Assessment Depression Ass essment [facility] Start: 09-13-2023 Mammography Mammogram Screening [facility] Comment on above: Postponed from 09/11 (Currently Scheduled) Start: 09-11-2023 Mammography [facility] Start: 09-11-2023 Screening for malign ant neoplasm of breast Mammogram Screening [facility] Start: 08-19-2023 Colonoscopy COLONOSCOPY [facility] Start: 08-19-2023 COLORECTAL CANCER SCREENING COLORECTAL CANCER SCREENING [facility] Start: 08-17-2023 ANNUAL PCP TEAM HARNESS MAKER OXANA DISEASE VISIT ANNUAL PCP TEAM CHRONIC DISEASE VISIT [facility] Start: 06-04-2023 Influenza vaccination Influenza Vacc ine (#1) [facility] Start: 02-13-2023 Adult depression scr eening assessment DEPRESSION SCREENING [facility] Start: 02-13-2023 ANNUAL PCP TEAM HARNESS MAKER OXANA DISEASE VISIT ANNUAL PCP TEAM CHRONIC DISEASE VISIT [facility] Start: 02-13-2023 BP CONTROLLED (<130/80) BP CONTROLLE D (<130/80) [facility] Start: 02-13-2023 COVID-19 VACCINE (4 - Booster for Moderna series) COVID-19 VACCINE (4 - Booster for Moderna series) [facility] Comment on above: Postponed from 12/27 (Declined at this time) Postponed from 10/24 (Declined at this time) Start: 11-17-2022 End: 01-17-2023 25-hydroxyvitamin D3 [Mass/volume] in Serum or Plasma VITAMIN D 25 HYDROXY Lab Routine Vitamin D deficiency Expected: 11/17/2022, Expires: 01/17/2023 [facility] Work Phone: Comment on above: Expected: 11/17/2022 , Expires: 01/17/2023 Start: 11-17-2022 End: 01-17-2023 Aspartate aminotransferase [Enzymatic activity/volume] in Serum or Plasma AST/SGOT BLD Lab Routine Hyperlipidemia, mixed Expected: 11/17/2022, Expires: 01/17/2023 [facility] Work Phone: Comment on above: Expected: 11/17/2022 , Expires: 01/17/2023 Start: 11-17-2022 End: 01-17-2023 Creatine kinase [Enzymatic activity/volume] in Serum or Plasma CK CREATINE KINASE Lab Routine Hyperlipidemia, mixed Expected: 11/17/2022, Expires: 01/17/2023 [facility] Work Phone: Comment on above: Expected: 11/17/2022 , Expires: 01/17/2023 Start: 11-17-2022 End: 01-17-2023 Lipid 1996 panel - Serum or Plasma LIPID PANEL BASIC Lab Routine Hyperlipidemia, mixed Expected: 11/17/2022, Expires: 01/17/2023 [facility] Work Phone: Comment on above: Expected: 11/17/2022 , Expires: 01/17/2023 Start: 10-04-2022 DEPRESSION ASSESSMENT DEPRESSION ASS ESSMENT [facility] Start: 08-27-2022 Mammography MAMMOGRAM [facility] Start: 08-16-2022 End: 10-16-2022 CBC panel - Blood by Automated count CBC Lab Routine Anxiety with depression Expected: 08/16/2022, Expires: 10/16/2022 [facility] Work Phone: Comment on above: Expected: 08/16/2022 , Expires: 10/16/2022 Start: 08-16-2022 End: 10-16-2022 Comprehensive metabolic 2000 panel - Serum or Plasma COMP METABOLIC PANEL Lab Routine Anxiety with depression Expected: 08/16/2022, Expires: 10/16/2022 [facility] Work Phone: Comment on above: Expected: 08/16/2022 , Expires: 10/16/2022 Start: 08-16-2022 End: 10-16-2022 LIPID PANEL BASIC LIPID PANEL BASIC Lab Routine Hyperlipidemia, mixed Expected: 08/16/2022, Expires: 10/16/2022 [facility] Work Phone: Comment on above: Expected: 08/16/2022 , Expires: 10/16/2022 Start: 08-15-2022 Urine microalbumin profile DTAP,TDAP ,TD (1 - Tdap) [facility] Comment on above: Postponed from 01/15 (Declined at this time) Start: 06-04-2022 Influenza vaccination INFLUENZA (#1) [facility] Start: 04-11-2022 End: 04-25-2022 Influenza virus A and B RNA and SARS-CoV-2 (COVID-19) N gene panel - Respiratory specimen by THOMPSON with probe detection COVID WITH FLUA+B, ROUTINE Microbiology Routine Viral illness Expected: 04/11/2022, Expires: 04/25/2022 [facility] Work Phone: Comment on above: Expected: 04/11/2022 , Expires: 04/25/2022 Start: 02-13-2022 End: 04-15-2022 Basic metabolic 2000 panel - Serum or Plasma [facility] Work Phone: Comment on above: Expected: 02/13/2022 , Expires: 04/15/2022 Start: 10-20-2021 HPV TESTING HPV TESTING [facility] Start: 10-20-2021 PAP TESTING PAP TESTING [facility] Start: 10-04-2021 DEPRESSION ASSESSMENT DEPRESSION ASS ESSMENT [facility] Start: 01-15-2014 Urine microalbumin profile DTAP,TDAP ,TD (1 - Tdap) [facility] Start: 2010 COLOGUARD (FIT-DNA) COLOGUARD (FIT-D NA) [facility] Start: [address] COLONOGRAPHY [facility] Start: 2010 FECAL OCCULT BLOOD FECAL OCCULT BLOO D [facility] Start: 2010 Screening for malign ant neoplasm of colon [facility] Start: 2010 SIGMOIDOSCOPY SIGMOIDOSCOPY [facility] Start: 1984 Hepatitis B Vaccine (1 of 3 - 19+ 3-dose series) Hepatitis B Vaccine (1 of 3 - 19+ 3-dose series) [facility] Start: 1983 BP CONTROLLED (<130/80) BP CONTROLLE D (<130/80) [facility] Start: 1983 HEPATITIS C SCREENING HEPATITIS C [facility] Start: 1983 Hepatitis C screening Hepatitis C [facility] Start: 1983 HIV SCREENING HIV SCREENING [facility] Start: 1983 HIV screening HIV Screening [facility] Start: 1965 HEPATITIS B (1 of 3 - 3-dose series) HEPATITIS B (1 of 3 - 3-dose series) [facility] Start: 1965 Hepatitis B Vaccine (1 of 3 - 3-dose series) Hepatitis B Vaccine (1 of 3 - 3-dose series) [facility] COVID & INFLUENZA A/ B & RSV NAAT, ROUTINE COVID & INFLUENZA A/B & RSV NAAT, ROUTINE Microbiology Routine Acute upper respiratory infection 08/19/2023 10:01 AM EST [facility] Work Phone: SURGICAL PATHOLOGY [facility] Work Phone: Comment on above: Release Upon Adelaidain g for 1 Occurrences starting 09/09/2023, 1 completed Tdap vaccine 7 yrs/> im TDAP VAC CINE AGE 7+ IM Immunization/Injection Routine Encounter for immunization Ordered: 10/20/2022 [facility] Work Phone: Comment on above: Ordered: 10/20/2022 [facility] Immunizations Immunization Date Immunization Notes Care Provider Fa [facility] 02-19-2025 pneumococcal conjuga te (PCV20) vaccine, 20 valent (PREVNAR 20) Mali Suppan PRINTING ROLLER POLISHER.EXCELLENCE COACH Work Phone: [facility] 02-19-2025 pneumococcal Conjuga te, unspecified formulation Mali Suppan PRINTING ROLLER POLISHER.EXCELLENCE COACH Work Phone: [facility] Work Phone: 08-22-2024 influenza, seasonal, injectable Mali Suppan PRINTING ROLLER POLISHER.EXCELLENCE COACH Work Phone: [facility] 08-22-2024 influenza virus vaccine, unspecified formulation Noemi Garcia PRINTING ROLLER POLISHER.EXCELLENCE COACH Work Phone: [facility] 10-21-2022 tetanus toxoid, redu beverley diphtheria toxoid, and acellular pertussis vaccine, adsorbed Mi Nurse Work Phone: [facility] Work Phone: 08-15-2022 COVID-19 booster vaccine, age 12+ yr, bivalent (MODERNA) NA Moreno PA-C Work Phone: [facility] 07-23-2022 influenza, injectabl e, quadrivalent, preservative free NA Moreno PA-C Work Phone: [facility] 07-23-2022 influenza virus vaccine, unspecified formulation NA Moreno PA-C Work Phone: [facility] 08-29-2021 COVID-19 original vaccine, full dose, monovalent (MODERNA) NA Moreno PA-C Work Phone: [facility] 08-15-2021 influenza, injectabl e, quadrivalent, contains preservative NA Moreno PA-C Work Phone: [facility] 01-23-2021 COVID-19 original vaccine, full dose, monovalent (MODERNA) NA Moreno PA-C Work Phone: [facility] 12-26-2020 COVID-19 original vaccine, full dose, monovalent (MODERNA) NA Moreno PA-C Work Phone: [facility] 08-12-2020 zoster vaccine recombinant NA Moreno PA-C Work Phone: [facility] Work Phone: 08-02-2020 influenza, seasonal, injectable NA Moreno PA-C Work Phone: [facility] 07-30-2020 Influenza, injectabl e, [place]in [place] Canine Kidney, preservative free, quadrivalent NA Moreno PA-C Work Phone: [facility] 05-27-2020 zoster vaccine recombinant NA Moreno PA-C Work Phone: [facility] Work Phone: 08-11-2019 Influenza, injectabl e, Madin [place] Canine Kidney, preservative free, quadrivalent NA Moreno PA-C Work Phone: [facility] 11-01-2017 influenza, injectabl e, quadrivalent, contains preservative NA Moreno PA-C Work Phone: [facility] Work Phone: 07-06-2016 influenza, injectabl e, quadrivalent, contains preservative NA Moreno PA-C Work Phone: [facility] Work Phone: 01-14-2014 tetanus and diphther ia toxoids, adsorbed, preservative free, for adult use (2 Lf of tetanus toxoid and 2 Lf of diphtheria toxoid) RADHA GOMEZ DO [facility] 09-10-2009 novel [id number], live virus for nasal administration FLOR Moreno PA-C Work Phone: [facility] Payers Date Payer Category Payer Private Health Insurance [facility] CHOICE PLUS [id number] 2020-Present [phone] [address] [address] [place] [address] HMO [id number] 2020 Private Health Insurance [id number] 2020 Unknown [id number] 1965 Unknown [id number] 1965 Unknown [id number] Social History Date Type Detail Facility Start: 12-22-2018 End: 06-22-2022 Never smoked tobacco (finding) [facility] Sex Assigned At [facility] Start: 08-04-2011 End: 06-22-2022 Tobacco use and exposure Smokeless tobacco non-user [facility] Work Phone: Start: 02-13-2022 End: 02-19-2025 Alcohol intake Current drinker of alcohol (finding) [facility] Start: 04-11-2020 End: 02-15-2023 History SDOH Alcohol Frequency 3 [facility] Start: 04-11-2020 End: 02-15-2023 History SDOH Alcohol Std Drinks 1 [facility] Start: 08-04-2011 History SDOH Alcohol Comment rarely [facility] Start: 04-11-2020 End: 02-15-2023 History SDOH Social Connections Phone 5 [facility] Start: 04-11-2020 End: 02-15-2023 History SDOH Social Connections Get Together 2 [facility] Start: 04-11-2020 Education 15 [facility] Start: 1965 Sex Assigned At Female [facility] Start: 04-01-2022 End: 08-17-2022 Exposure to SARS-CoV-2 (event) Not sure [facility] Work Phone: Start: 02-15-2023 History SDOH Social Connections Get Together 4 [facility] Start: 02-15-2023 End: 02-15-2024 History of Social function [facility] Start: 02-15-2023 End: 02-15-2024 Social connection and isolation panel [facility] Do you belong to any clubs or organizations such as episcopalian groups, unions, fraternal or athletic groups, or school groups? Yes [facility] Are you now , , , , never or living with a partner? [facility] How often to you hav e a drink containing alcohol? Monthly or less [facility] How many standard dr inks containing alcohol do you have on a typical day? 1 or 2 [facility] How often do you hav e 6 or more drinks on 1 occasion? Never [facility] Start: 09-04-2012 How hard is it for you to pay for the very basics like food, housing, medical care, and heating Not hard at all [facility] Do you feel stress - tense, restless, nervous, or anxious, or unable to sleep at night because your mind is troubled all the time - these days [OSQ] Not at all [facility] (I/We) worried hedy er (my/our) food would run out before (I/we) got money to buy more. Never true [facility] In the past 12 month s, was there a time when you were not able to pay the mortgage or rent on time? No [facility] Start: 04-11-2020 Gender identity Identifies as female gender (finding) [facility] Start: 04-11-2020 Sexual orientation Heterosexual (finding) [facility] How often to you hav e a drink containing alcohol? 2-4 times a month [facility] Do you feel stress - tense, restless, nervous, or anxious, or unable to sleep at night because your mind is troubled all the time - these days [OSQ] To some extent [facility] Clinical Notes 04-26-2017 to 08-07-2025 Telephone Encounter - Jose JoyaFARHEEN salvador - 04/02/2025 9:57 AM EDTTelephone Encounter - Joya Whitmore LPN - 04/02/2025 9:57 AM EDTPatient InstructionsPatient InstructionsPatient Instructions Note Date & Type Note Facility 08-07-2025 Note Patient Outreach (IN T[facility]N) KARY ALFARO ([id number]) 1965 F Date Time Provider Department 08/07/25 MALI SMITH During your visit today, we recorded the following information about you: Allergies As of Date: 08/07/2025 Noted Allergy Reaction BLUE DYE 08/04/2011 4 - Hives CODEINE 08/04/2011 4 - Hives SEASONAL ALLERGIES 02/19/2025 16 - Unknown Date Reviewed: 03/31/2025 Reviewed by: Elizabet Gutierrez, WENDY - Fully Assessed Visit Diagnoses:Benign hypertension [I10] Hyperlipidemia, mixed [E78.2] Prescriptions as of 08/10/2025 - atorvastatin (LIPITOR) 10 mg tablet Take 1 tablet by mouth daily at bedtime. For cholesterol. - FLUoxetine (PROZAC) 40 mg capsule Take 1 capsule by mouth once daily. - hydroCHLOROthiazide 25 mg tablet Take 1 tablet by mouth once daily. - fluticasone (FLONASE) 50 mcg/actuation nasal spray Use 2 Sprays in each nostril once daily. Problem List As Of Date 08/07/2025 Noted Resolved Coccyx pain [M53.3] 08/19/2011 Benign hypertension [I10] 01/22/2016 Abnormal colonoscopy [R93.3] 03/09/2016 Adjustment reaction, depressive, brief [F43.21] 06/05/2016 Hypertension [I10] 04/26/2017 Colon polyp [K63.5] Screening for breast cancer [Z12.39] 11/01/2017 Post menopausal syndrome [N95.1] 12/02/2020 Hyperlipidemia, mixed [E78.2] 02/13/2022 Vestibular neuronitis of left ear [H81.22] 02/13/2022 History of colonic polyps [Z86.0100] 09/09/2023 Encounter Status:Closed by [employer], [email or web address] on 08/10/25 [facility] 04-02-2025 Telephone encounter Note Pt given provider's message below. Mali Smith APRN.TONNY 04/02/25 7:48 AM Note With influenza, she is now outside the window for Tamiflu. May stop medrol taper. Antibiotic isn't needed. This is a virus and must run its course. Mucinex for congestion in chest Acetaminophen for body aches. Rest, fluids... Pt voiced understanding. Joya Whitmore LPN [facility] 04-02-2025 Miscellaneous Notes Pt given provider's message below. Mali Smith APRN.TONNY 04/02/25 7:48 AM Note With influenza, she is now outside the window for Tamiflu. May stop medrol taper. Antibiotic isn't needed. This is a virus and must run its course. Mucinex for congestion in chest Acetaminophen for body aches. Rest, fluids... Pt voiced understanding. Joya Whitmore LPN documented in this encounter [facility] 03-31-2025 Telephone encounter Note Reason for call: wants to stop taking prednisone and asking if this is ok; asking also if there is something else she can/should take instead Outcome: Dr. Lr, on-call today, was contacted. She is advising that patient can stop taking the prednisone since she is feeling better. Dr. Lr also states she would be willing to prescribe Tamiflu if patient would like it. RN attempted to reach Ms Alfaro multiple times on the call back phone number given, but calls are answered by voicemail. Message left instructing her to call us via her PCP's office number. Reason for Disposition [1] Caller has URGENT medicine question about med that PCP or specialist prescribed AND [2] triager unable to answer question Answer Assessment - Initial Assessment Questions 1. NAME of MEDICINE: medrol pack. Started on (03/29) night and has taken 7 pills so far 2. QUESTION: patient asking if safe to stop taking it and if there is something else she should take instead 3. PRESCRIBER: Urgent Care 4. SYMPTOMS: nausea and diarrhea (a couple of loose stools yesterday and once today) since night. Denies nausea now. She has been having difficulty sleeping since starting this medication. States she feels unwell every time she takes it. Patient was diagnosed with bronchitis and tested positive for Influenza A; she was given prescriptions for prednisone and doxycycline. Fever is gone. She has an intermittent cough, but no respiratory distress. Protocols used: Medication Question Pskx-RULNA-[facility] 03-31-2025 Miscellaneous Notes Reason for call: wants to stop taking prednisone and asking if this is ok; asking also if there is something else she can/should take instead Outcome: Dr. Lr, on-call today, was contacted. She is advising that patient can stop taking the prednisone since she is feeling better. Dr. Lr also states she would be willing to prescribe Tamiflu if patient would like it. RN attempted to reach Ms Alfaro multiple times on the call back phone number given, but calls are answered by voicemail. Message left instructing her to call us via her PCP's office number. Reason for Disposition [1] Caller has URGENT medicine question about med that PCP or specialist prescribed AND [2] triager unable to answer question Answer Assessment - Initial Assessment Questions 1. NAME of MEDICINE: medrol pack. Started on (03/29) night and has taken 7 pills so far 2. QUESTION: patient asking if safe to stop taking it and if there is something else she should take instead 3. PRESCRIBER: Urgent Care 4. SYMPTOMS: nausea and diarrhea (a couple of loose stools yesterday and once today) since night. Denies nausea now. She has been having difficulty sleeping since starting this medication. States she feels unwell every time she takes it. Patient was diagnosed with bronchitis and tested positive for Influenza A; she was given prescriptions for prednisone and doxycycline. Fever is gone. She has an intermittent cough, but no respiratory distress. Protocols used: Medication Question [id number] documented in this encounter [facility] 03-30-2025 Telephone encounter Note Zofran RX sent [facility] 03-30-2025 Miscellaneous Notes Zofran RX sent documented in this encounter [facility] 03-29-2025 Instructions Frieda Shah APRN.CNP - 03/29/2025 11:44 AM EDT - You had a flu/COVID/RSV swab collected; results are expected by tomorrow morning and we will notify you. - You underwent a chest x-ray today; and negative for pneumonia. - We plan for you to start a short course of oral steroids and doxycycline; documented in this encounter [facility] 03-29-2025 Note HNO ID: [id number] Author: FRIEDA SHAH APRN.CNP Service: ? Author Type: Nurse Practitioner Type: Progress Notes Filed: 03/29/2025 11:51 Note Text: [facility] Subjective Kary Alfaro is a 59 year old female. Patient presents with: Cough: Congestion, GROSS, fever x 2 days Cough Upper Respiratory Symptoms: - Onset Wednesday night into Wednesday morning after a red-eye flight returning from vacation in [place]. - Initially experienced upper respiratory congestion and headache, which progressed to chest congestion and pressure. - Associated with a non-persistent but severe cough. - Symptoms exacerbated when lying flat; finds relief by sleeping upright on the couch. - Possible exposure to wildfire smoke during vacation in [place], [place]. - Denies asthma or diabetes; has a history of bronchitis. - Denies smoking. - Reports basic spring allergies. - Allergic to codeine and blue number 2 dye. PAST MEDICAL HISTORY Diagnosis Date Colon polyp Depression Environmental allergies Hypertension Pilonidal cyst 1983 Pilonidal cyst 1989 Pilonidal cyst 1994 Snoring PAST SURGICAL HISTORY Procedure Laterality Date COLONOSCOPY 02/17/2016 Repeat 2019 COLONOSCOPY FLX DX W/COLLJ SPEC WHEN PFRMD 08/19/2020 Colonoscopy repeat in 3 years COLONOSCOPY FLX DX W/COLLJ SPEC WHEN PFRMD 08/[address] Mott (repeat 5yrs) EXCISION PILONIDAL CYST/SINUS SIMPLE 1989 EXCISION PILONIDAL CYST/SINUS SIMPLE 1994 LAPAROSCOPY SURG CHOLECYSTECTOMY 1998 Cholecystectomy, lap PILONIDAL CYST/SINUS EXCISION 1983 ALLERGIES Blue Dye, Codeine, and Seasonal Allergies MEDICATIONS atorvastatin (LIPITOR) 10 mg tablet Take 1 tablet by mouth daily at bedtime. For cholesterol. FLUoxetine (PROZAC) 40 mg capsule Take 1 capsule by mouth once daily. hydroCHLOROthiazide 25 mg tablet Take 1 tablet by mouth once daily. fluticasone (FLONASE) 50 mcg/actuation nasal spray Use 2 Sprays in each nostril once daily. doxycycline hyclate (VIBRAMYCIN) 100 mg capsule Take 1 capsule by mouth two times a day for 7 days. benzonatate (TESSALON PERLE) 100 mg capsule Take 1 capsule by mouth three times a day as needed for cough for up to 7 days. methylPREDNISolone (MEDROL, BRITTANY,) 4 mg Dose-Pack Take as instructed per package. FAMILY HISTORY Problem Relation Age of Onset Cancer Mother Ischemic Heart Disease Father Blood Disease Father Blood Disease Sister 1/2 sis Cancer Maternal Grandmother other (Leiden factor V) Daughter Social History Tobacco Use Smoking status: Never Smokeless tobacco: Never Vaping Use Vaping status: Never Used Substance Use Topics Alcohol use: Yes Comment: rarely Drug use: Yes Review of Systems Respiratory: Positive for cough. Constitutional: (+) fever Head: (+) headache Ears/Nose/Mouth/Throat: (+) nasal congestion Cardiovascular: (+) chest pressure Respiratory: (+) cough Objective BP 128/90 Pulse 95 Temp 37.1 ?C (98.8 ?F) Resp 19 Wt 99.3 kg (218 lb 14.7 oz) LMP 04/12/2017 SpO2 97% BMI 36.04 kg/m? Physical Exam Vitals and nursing note reviewed. Constitutional: General: She is not in acute distress. Appearance: Normal appearance. She is normal weight. She is not ill-appearing, toxic-appearing or diaphoretic. HENT: Head: Normocephalic and atraumatic. Right Ear: Ear canal and external ear normal. Left Ear: Ear canal and external ear normal. Nose: Nose normal. No congestion or rhinorrhea. Mouth/Throat: Mouth: Mucous membranes are moist. Pharynx: No oropharyngeal exudate or posterior oropharyngeal erythema. Eyes: General: Right eye: No discharge. Left eye: No discharge. Extraocular Movements: Extraocular movements intact. Conjunctiva/sclera: Conjunctivae normal. Pupils: Pupils are equal, round, and reactive to light. Cardiovascular: Rate and Rhythm: Normal rate and regular rhythm. Pulses: Normal pulses. Heart sounds: Normal heart sounds. No murmur heard. No friction rub. Pulmonary: Effort: Pulmonary effort is normal. No respiratory distress. Breath sounds: Normal breath sounds. No stridor. No wheezing, rhonchi or rales. Chest: Chest wall: No tenderness. Abdominal: General: Abdomen is flat. There is no distension. Palpations: Abdomen is soft. There is no mass. Tenderness: There is no abdominal tenderness. There is no right CVA tenderness, left CVA tenderness, guarding or rebound. Hernia: No hernia is present. Musculoskeletal: General: No swelling, tenderness, deformity or signs of injury. Normal range of motion. Cervical back: Normal range of motion and neck supple. No rigidity. Right lower leg: No edema. Left lower leg: No edema. Lymphadenopathy: Cervical: Cervical adenopathy present. Skin: General: Skin is warm and dry. Capillary Refill: Capillary refill takes less than 2 seconds. Coloration: Skin is not jaundiced or pale. Findings: No bruising, erythema, lesio (more content not included)... [facility] 03-29-2025 History of Present illness Narrative [facility] Subjective Kary Alfaro is a 59 year old female. Patient presents with: Cough: Congestion, GROSS, fever x 2 days Cough Upper Respiratory Symptoms: - Onset Wednesday night into Wednesday morning after a red-eye flight returning from vacation in [place]. - Initially experienced upper respiratory congestion and headache, which progressed to chest congestion and pressure. - Associated with a non-persistent but severe cough. - Symptoms exacerbated when lying flat; finds relief by sleeping upright on the couch. - Possible exposure to wildfire smoke during vacation in [place], [place]. - Denies asthma or diabetes; has a history of bronchitis. - Denies smoking. - Reports basic spring allergies. - Allergic to codeine and blue number 2 dye. PAST MEDICAL HISTORY Diagnosis Date Colon polyp Depression Environmental allergies Hypertension Pilonidal cyst 1983 Pilonidal cyst 1989 Pilonidal cyst 1994 Snoring PAST SURGICAL HISTORY Procedure Laterality Date COLONOSCOPY 02/17/2016 Repeat 2019 COLONOSCOPY FLX DX W/COLLJ SPEC WHEN PFRMD 08/19/2020 Colonoscopy repeat in 3 years COLONOSCOPY FLX DX W/COLLJ SPEC WHEN PFRMD 08/[address] Mott (repeat 5yrs) EXCISION PILONIDAL CYST/SINUS SIMPLE 1989 EXCISION PILONIDAL CYST/SINUS SIMPLE 1994 LAPAROSCOPY SURG CHOLECYSTECTOMY 1998 Cholecystectomy, lap PILONIDAL CYST/SINUS EXCISION 1983 ALLERGIES Blue Dye, Codeine, and Seasonal Allergies MEDICATIONS atorvastatin (LIPITOR) 10 mg tablet Take 1 tablet by mouth daily at bedtime. For cholesterol. FLUoxetine (PROZAC) 40 mg capsule Take 1 capsule by mouth once daily. hydroCHLOROthiazide 25 mg tablet Take 1 tablet by mouth once daily. fluticasone (FLONASE) 50 mcg/actuation nasal spray Use 2 Sprays in each nostril once daily. doxycycline hyclate (VIBRAMYCIN) 100 mg capsule Take 1 capsule by mouth two times a day for 7 days. benzonatate (TESSALON PERLE) 100 mg capsule Take 1 capsule by mouth three times a day as needed for cough for up to 7 days. methylPREDNISolone (MEDROL, BRITTANY,) 4 mg Dose-Pack Take as instructed per package. FAMILY HISTORY Problem Relation Age of Onset Cancer Mother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 weight loss from oral surgery sequela, no malaise, no fevers/chills HEENT: Negative for frequent or significant headaches, Some changes in hearing & tinnitus, some steady change in vision. NECK: Negative for lumps, goiter, pain and significant neck swelling RESPIRATORY: Negative for cough, hemoptysis, wheezing, dyspnea or shortness of breath CARDIOVASCULAR: Negative for chest pain, leg swelling, orthopnea, or palpitations GI: No nausea, vomiting, or diarrhea/constipation. No hematochezia/melena. No heartburn or reflux symptoms. : No history of dysuria, frequency or incontinence MUSCULOSKELETAL: Negative for joint pain or swelling. Hips are stiff SKIN: Negative for lesions, rash, and itching ENDOCRINE: Negative for cold or heat intolerance, polyuria, + polydipsia and goiter NEURO: No history of headaches, syncope, paralysis, seizures or tremors MOOD: Negative for depression, anxiety, or suicidal ideation. PAST MEDICAL HISTORY Diagnosis Date Colon polyp Depression Environmental allergies Hypertension Pilonidal cyst 1983 Pilonidal cyst 1989 Pilonidal cyst 1994 Snoring PAST SURGICAL HISTORY Procedure Laterality Date COLONOSCOPY 02/17/2016 Repeat 2019 COLONOSCOPY FLX DX W/COLLJ SPEC WHEN PFRMD 08/19/2020 Colonoscopy repeat in 3 years COLONOSCOPY FLX DX W/COLLJ SPEC WHEN PFRMD 08/[address] Mott (repeat 5yrs) EXCISION PILONIDAL CYST/SINUS SIMPLE 1989 EXCISION PILONIDAL CYST/SINUS SIMPLE 1994 LAPAROSCOPY SURG CHOLECYSTECTOMY 1998 Cholecystectomy, lap PILONIDAL CYST/SINUS EXCISION 1983 Medication List Current Outpatient Medications Medication Sig Dispense Refill hydroCHLOROthiazide 25 mg tablet Take 1 tablet by mouth once daily. 90 tablet 1 multivitamin tablet Take 1 tablet by mouth once daily. cholecalciferol, vitamin D3, (VITAMIN D3 ORAL) Take 5,000 Units by mouth once daily. fluticasone (FLONASE) 50 mcg/actuation nasal spray Use 2 Sprays in each nostril once daily. atorvastatin (LIPITOR) 10 mg tablet Take 1 tablet by mouth daily at bedtime. For cholesterol. 90 tablet 1 FLUoxetine (PROZAC) 40 mg capsule Take 1 capsule by mouth once daily. 90 capsule 3 No current facility-administered medications for this visit. Weight Summary: Weight Change: Body mass index is 35.39 kg/m . Last Wt 08/22/24 : 97.5 kg (215 lb) 02/17/24 : 98.9 kg (218 lb) 09/09/23 : 99.7 kg (219 lb 12.8 oz) 08/19/23 : 100.7 kg (222 lb) 03/03/23 : 99.7 kg (219 lb 12.8 oz) Physical Exam: General Appearance: well appearing, alert and oriented. Skin: no suspicious lesion, no rash, no open sores Head: normocephalic, no obvious masses, lesions, tenderness or abnormalities. Eyes: Anicteric sclera. Pupils are equally round Ears: external ears normal, canals clear, TM's normal. Hearing to conversational voice intact. Nose/Sinuses: nares normal, septum midline, mucosa normal, no drainage or sinus tenderness. Oropharynx: lips, mucosa, and tongue normal, oropharynx normal. Neck: trachea midline, thyroid without mass or nodularity, thyroid moves normally with swallow, no regional lymphadenopathy. Carotids normal upstroke, no bruit or thrill. Back:no pain to palpation of vertebrae, no percussion tenderness over spine. Lungs: Chest rise & fall symmetrical, Lungs clear to auscultation. No wheezing or rhonchi. No rales. Abdomen: normal bowel sounds, no mass, non-tender Heart: S1S2, no gallop, no rub, no murmur Lymph Nodes: no lymphadenopathy. Ext: no clubbing, cyanosis or edema. Mood: bright affect, speech clear, answers questions appropriately SCREENINGS Health Maintenance Listing Hepatitis C Screening HIV Screening BP Controlled (<130/80) Hepatitis B Vaccine(1 of 3 - 19+ 3-dose series) Influenza Vaccine(1) TEST RESULTS: Lab Studies: Date of lab studies: - glucose - potassium - Creatinine, gfr - LFTs Lipid: WBC, H&H, Platelets: A1C: Vitamin D: Other: A/P: ASSESSMENT/PLAN: 1. Hyperlipidemia, mixed - ICD9: 272.2, ICD10: E78.2 (primary diagnosis) - Control undetermined, due for labs - Continue current medications - Counseled on healthy diet and regular exercise - ATORVASTATIN 10 MG TABLET - ATORVASTATIN 10 MG TABLET - LIPID PANEL, NONFASTING 2. Anxiety with depression - ICD9: 300.4, ICD10: F41.8 Stable on current TX - FLUOXETINE 40 MG CAPSULE 3. Encounter for immunization - ICD9: V03.89, ICD10: Z23 - INFLUENZA VACCINE, AGE 6MO-64YR, TRIVALENT (AFLURIA, FLULAVAL, FLUVIRIN, FLUZONE) 4. Essential hypertension - ICD9: 401.9, ICD10: I10 - Controlled - Recommend home blood pressure monitoring, to bring results to next visit - Encouraged sodium restriction, DASH or Mediterranean diet - Recommend regular aerobic exercise - HYDROCHLOROTHIAZIDE 25 MG TABLET - COMPREHENSIVE METABOLIC PANEL - MAGNESIUM 5. Special screening examination for viral disease - ICD9: V73.99, ICD10: Z11.59 Screen - HEPATITIS C ANTIBODY IA WITH CONFIRMATION 6. Screening for diabetes mellitus - ICD9: V77.1, ICD10: Z13.1 Check labs - COMPLETE BLOOD COUNT AND DIFFERENTIAL - HEMOGLOBIN A1C - VITAMIN B12 7. Vitamin D deficiency - ICD9: 268.9, ICD10: E55.9 Check level - VITAMIN D 25 HYDROXY Discussed treatment plan and patient voices understanding. Patient's questions answered appropriately. Medications and potential side effects were discussed and patient voices understanding. Return to the office as scheduled or as needed for worsening/no improvement. \ Mali Smith APRN.CNP Follow Up Plans: 12 m documented in this encounter [facility] 06-30-2024 Telephone encounter Note The following approved medication requests have been transmitted electronically. Requested Prescriptions Pending Prescriptions Disp Refills hydroCHLOROthiazide 25 mg tablet 90 tablet 1 Sig: Take 1 tablet by mouth once daily. Mali Smith APRN.CNP [facility] 06-30-2024 Miscellaneous Notes The following approved medication requests have been transmitted electronically. Requested Prescriptions Pending Prescriptions Disp Refills hydroCHLOROthiazide 25 mg tablet 90 tablet 1 Sig: Take 1 tablet by mouth once daily. Mali Smith APRN.CNP Prescription Refill Information The patient has been identified by name and date of : Yes Caregiver verified no other encounters exist for this prescription request: Yes Caregiver confirmed with patient/requestor that no other refills are due, in the near future, with this provider at this time: Yes The last office visit in the department: 02/17/24 Does the patient have a future office visit with this provider/department: Yes, 08/22/24 Requested Prescriptions Pending Prescriptions Disp Refills hydroCHLOROthiazide 25 mg tablet 90 tablet 1 Sig: Take 1 tablet by mouth once daily. Colt Short LPN June 30, 2024 10:42 AM documented in this encounter [facility] 06-30-2024 Telephone encounter Note Prescription Refill Information The patient has been identified by name and date of : Yes Caregiver verified no other encounters exist for this prescription request: Yes Caregiver confirmed with patient/requestor that no other refills are due, in the near future, with this provider at this time: Yes The last office visit in the department: 02/17/24 Does the patient have a future office visit with this provider/department: Yes, 08/22/24 Requested Prescriptions Pending Prescriptions Disp Refills hydroCHLOROthiazide 25 mg tablet 90 tablet 1 Sig: Take 1 tablet by mouth once daily. Colt Short LPN June 30, 2024 10:42 AM [facility] 02-24-2024 Telephone encounter Note Get Medical Advice on 02/22/24 COMPREHENSIVE METABOLIC PANEL COMPLETE BLOOD COUNT AND DIFFERENTIAL LIPID PANEL BASIC Kevin Moreno PA-C [facility] 02-24-2024 Miscellaneous Notes Get Medical Advice on 02/22/24 COMPREHENSIVE METABOLIC PANEL COMPLETE BLOOD COUNT AND DIFFERENTIAL LIPID PANEL BASIC Kevin Moreno PA-C documented in this encounter [facility] 02-17-2024 Instructions Melia Moreno PA-C - 02/17/2024 11:05 AM EDT See piriformis stretching: daily 3-4 times each exercise 30-45 sec documented in this encounter [facility] 02-17-2024 History of Present illness Narrative 58 year old female with c/o here for 6 months med follow up Benign hypertension (primary encounter diagnosis) Current meds: HCTZ 25mg daily Patient is compliant with meds Yes Monitors bp at home: No, unless feels funky. If yes, readings: Denies side effects: No. Chest pain: Yes, started this morning with a little squeezing mid sternal, comes for a few seconds and then goes away. Happened 4-5 times after arriving here. Has been doing a lot of gardening. Dyspnea: No. Edema: No. Palpitations: No. Syncope: No. Headache: No. Dizziness: No. Last 3 Encounter BP Readings: Date: BP: 02/17/2024 130/82 09/09/2023 142/79 08/19/2023 122/80 Last 2 Encounter Wt Readings: Date: Wt: 02/17/2024 98.9 kg (218 lb) 09/09/2023 99.7 kg (219 lb 12.8 oz) Hyperlipidemia, mixed Current medication Atorvastatin 10mg daily HS Taking medication consistently Yes Observing low cholesterol high fiber diet doing a lot better Muscle aches same as always, preceded medication Stomach complaints/ diarrhea No Last 2 Lipids: Latest Ref Rng 08/12/2022 12/14/2022 Cholesterol, Total <200 mg/dL 210 (H) 162 Triglyceride <150 mg/dL 148 87 HDL Cholesterol >39 mg/dL 41 52 Non HDL Cholesterol <130 mg/dL 169 (H) 110 Fasting Time hrs 12 12 VLDL Cholesterol <30 mg/dL 30 (H) 17 TC:HDL Ratio <5.10 5.12 (H) 3.12 LDL Cholesterol <100 mg/dL 139 (H) 93 LDL:HDL Ratio <2.54 3.39 (H) 1.79 Vestibular neuronitis of left ear Doing okay Some ringing in ear- seeing Dr. Thompson ENT next week Using Flonase for allergies, helps ears a little Coccyx pain Whole back hurts, feels need adjustment with helps. Colon Polyps Adenomatous polyp of ascending colon 09/09/2023 colonoscopy: surveillance 5 years Component FINAL DIAGNOSIS Right colon, polypectomy: - Fragments of tubular adenoma. Gross Description A. COLON POLYP Received in formalin are two pieces of yost-brown, soft tissue aggregating to 0.4 x 0.2 x 0.2 cm. Totally submitted in one cassette. Post menopausal syndrome Hot flashes twice in last month Stopped hormone therapy a year ago in Sep 2022 Sees [facility] OPERATOR, Severino Goldberg Adjustment reaction, depressive, brief Anxiety with depression Current medications: Fluoxtine 40mg daily Mood is great Daughter got a divorce. Current medications: Vitamin D 3 5000u daily HISTORIES FAMILY HISTORY Problem Relation Age of Onset Cancer Mother Ischemic Heart Disease Father Blood Disease Father Blood Disease Sister 1/2 sis Cancer Maternal Grandmother other (Leiden factor V) Daughter PAST MEDICAL HISTORY Diagnosis Date Colon polyp Depression Environmental allergies Hypertension Pilonidal cyst 1983 Pilonidal cyst 1989 Pilonidal cyst 1994 Snoring PAST SURGICAL HISTORY Procedure Laterality Date COLONOSCOPY 02/17/2016 Repeat 2019 COLONOSCOPY FLX DX W/COLLJ SPEC WHEN PFRMD 08/19/2020 Colonoscopy repeat in 3 years COLONOSCOPY FLX DX W/COLLJ SPEC WHEN PFRMD 08/[address] Mott (repeat 5yrs) EXCISION PILONIDAL CYST/SINUS SIMPLE 1989 EXCISION PILONIDAL CYST/SINUS SIMPLE 1994 LAPAROSCOPY SURG CHOLECYSTECTOMY 1998 Cholecystectomy, lap PILONIDAL CYST/SINUS EXCISION 1983 Social History Tobacco Use Smoking status: Never Smokeless tobacco: Never Vaping Use Vaping Use: Never used Substance Use Topics Alcohol use: Yes Comment: rarely Drug use: Yes ACTIVE PROBLEM LIST Coccyx Pain Benign Hypertension Abnormal colonoscopy Adjustment Reaction, Depressive, Brief Colon Polyp Screening for Breast Cancer Post Menopausal Syndrome Hyperlipidemia, Mixed Vestibular Neuronitis of Left Ear History of Colonic Polyps Current Outpatient Medications Medication Sig Dispense Refill hydroCHLOROthiazide 25 mg tablet Take 1 tablet by mouth once daily. 90 tablet 1 atorvastatin (LIPITOR) 10 mg tablet Take 1 tablet by mouth daily at bedtime. For cholesterol. 90 tablet 1 FLUoxetine (PROZAC) 40 mg capsule Take 1 capsule by mouth once daily. 90 capsule 3 multivitamin tablet Take 1 tablet by mouth once daily. cholecalciferol, vitamin D3, (VITAMIN D3 ORAL) Take 5,000 Units by mouth once daily. fluticasone (FLONASE) 50 mcg/actuation nasal spray Use 2 Sprays in each nostril once daily. No current facility-administered medications for this visit. Hepatitis C Screening Never done HIV Screening Never done BP Controlled (<130/80) Never done Hepatitis B Vaccine(1 of 3 - 19+ 3-dose series) Never done Behavioral Health Screening Never done EXAM: BP 130/82 Pulse 81 Resp (!) 98 Wt 98.9 kg (218 lb) LMP 04/12/2017 BMI 36.00 kg/m Pleasant obese adult woman in no acute distress. Alert and oriented all spheres. Normal affect and cognition. Speech normal. No deficits to learning or comprehension. Skin warm, dry, pink to lips and nailbeds. Normal turgor. Respirations regular and unlabored. HEENT: NCAT. No scleral icterus or conjunctival injection. TM's clear. Nose and oropharynx free from injection or lesion. Oral membranes moist and pink. No cervical lymph nodes. Thyroid non-tender, no masses, or enlargement. Carotids pulses 2+/4+ without bruits. No JVD with HOB at 30 degrees. Chest is normal shape. Lungs are clear to all hernadez with good air exchange through out. HRRR without murmur or gallop. No lifts, heaves, or rubs. Spine with mild levoscoliosis, hips are relatively even. Restricted left innominate joint on forward flexion. Patient is only able to keep fingers just past the knees.. Extrem: no clubbing or cyanosis. Edema: none. Extremities are warm and pink with prompt capillary refill. Neuro: No sensory loss to light touch or sharp dull, DTRs 2 out of 4 plus and brisk knee jerk and Achilles. Motor strength symmetric 4-5+ bilaterally with reduction areas in knee extension, bilateral hip abduction and adduction. OMT: Myofascial release to tender trigger points bilateral lumbar spine, bilateral piriformis trigger points, muscle energy techniques for lumbar spine, HVLA to left innominate with significant improvement, able to touch toes and move easily without pain. ASSESSMENT/PLAN: 1. Benign hypertension - ICD9: 401.1, ICD10: I10 (primary diagnosis) - Controlled - Continue current medications - Recommend home blood pressure monitoring, to bring results to next visit - Encouraged sodium restriction, DASH or Mediterranean diet - Recommend regular aerobic exercise 2. Hyperlipidemia, mixed - ICD9: 272.2, ICD10: E78.2 - Controlled - Continue current medications - Counseled on healthy diet and regular exercise 3. Vestibular neuronitis of left ear - ICD9: 386.12, ICD10: H81.22 Stable, has not had much trouble. 4. Coccyx pain - ICD9: 724.79, ICD10: M53.3 Stable. 5. Adenomatous polyp of ascending colon - ICD9: 211.3, ICD10: D12.2 Surveillance was recommended 5 years 6. Post menopausal syndrome - ICD9: 627.9, ICD10: N95.1 Follows with [facility], using bioequivalent plant products 7. Adjustment reaction, depressive, brief - ICD9: 309.0, ICD10: F43.21 8. Anxiety with depression - ICD9: 300.4, ICD10: F41.8 Stable, doing well on fluoxetine - FLUOXETINE 40 MG CAPSULE 9. Tick bite of right thigh, subsequent encounter - ICD9: V58.89, 916.4, ICD10: S70.361D, W57.XXXD Worried her menopausal sx may be r/t Lyme - LYME AB LATE >30 DAYS SYMPTOMS 10. Somatic dysfunction of left sacroiliac joint - ICD9: 739.4, ICD10: M99.04 Ice/ moist heat, lineaments, OTC analgesics as neede,. Stretching and posture reviewed. Melia Moreno PA-C documented in this encounter [facility] 12-16-2023 Miscellaneous Notes Patient has been identified by name and date of : Yes, Patient phones for refill(s): Requested Prescriptions Pending Prescriptions Disp Refills hydroCHLOROthiazide 25 mg tablet 90 tablet 1 Sig: Take 1 tablet by mouth once daily. Date of last office visit in primary care: 08/19/2023 Date of next office visit in primary care: 02/17/2024 Please advise. Thank you. Mali Campbell LPN. documented in this encounter [facility] 09-16-2023 Miscellaneous Notes Patient updated via [employer] HM & history updated. Recall letter done. Sandhya Abdul LPN ----- Message from Niya Alfredo PA-C sent at 09/14/2023 10:50 AM EST ----- Please let patient know pathology showed adenomatous polyps-benign, but premalignant type of polyp. Recommend repeat colonoscopy in 5 years for surveillance. Please update HM and generate recall letter documented in this encounter [facility] 09-09-2023 Nurse Note Patient received in phase II via cart in left lateral position, eyes closed but open to verbal stimuli, skin warm and dry, respirations regular and unlabored, abdomen soft and non distended, denies pain or nausea. Resting comfortably on left side. documented in this encounter [facility] 09-09-2023 History and physical note UPDATED PROCEDURAL SEDATION HISTORY AND PHYSICAL EXAMINATION SERVICE DATE: 09/09/2023 SERVICE TIME: 11:44 PHYSICAL EXAM MUST BE COMPLETED ON ADMISSION PROCEDURE: colonosocpy, possible biopsies Procedure Indications: history fo colon polyp The History and Physical (completed in the past 30 days) has been reviewed and the patient has been examined. The contents accurately reflect the patient's condition with the following additions or revisions since the H&P was completed. ASA Class: ASA Class:: Patient with mild systemic disease Examination indicates no changes. AIRWAY: Airway Visualization of Uvula: Yes Mouth opening greater than 2 fingerbreadths: Yes Neck Full Range of Motion: Yes LUNGS: Lungs clear to auscultation CARDIAC: Regular rhythm,Regular rate Provisional Diagnosis/Treatment Plan: colonoscopy, possible biopsies SEDATION GOAL: Moderate This H&P can be found in the Electronic Medical Record. SIGNATURE: Noris Mott MD PATIENT NAME: Kary Alfaro DATE: September 09, 2023 TIME: 11:44 AM Source Note - Noris Mott MD - 09/09/2023 12:45 PM EST HISTORY AND PHYSICAL Kary Alfaro 1965 REFERRING PHYSICIAN: Melia Moreno PA-C CHIEF COMPLAINT: Consult (colonoscopy) HPI: The patient is a 57 year old female referred for endoscopy. Kary notes no colon complaints. Patient denies any change in bowel habits, weight changes, blood in stools, black tarry stools or abdominal pain. Denies family history of colon issues. The patient notes no upper GI complaints. Kary has undergone prior endoscopy. Last colonoscopy 08/19/[address] Snell under conscious sedation with removal of 10 mm adenomatous polyp, 3 year follow up recommended. Patient denies problems with sedation in the past. PAST MEDICAL HISTORY PAST MEDICAL HISTORY Diagnosis Date Colon polyp Depression Environmental allergies Hypertension Pilonidal cyst 1983 Pilonidal cyst 1989 Pilonidal cyst 1994 Snoring PAST SURGICAL HISTORY PAST SURGICAL HISTORY Procedure Laterality Date COLONOSCOPY 02/17/16 Repeat 2019 COLONOSCOPY FLX DX W/COLLJ SPEC WHEN PFRMD 08/19/2020 Colonoscopy repeat in 3 years EXCISION PILONIDAL CYST/SINUS SIMPLE 1989 EXCISION PILONIDAL CYST/SINUS SIMPLE 1994 LAPAROSCOPY SURG CHOLECYSTECTOMY 1998 Cholecystectomy, lap PILONIDAL CYST/SINUS EXCISION 1983 CURRENT MEDICATIONS Current Outpatient Medications Medication Sig FLUoxetine (PROZAC) 40 mg capsule Take 1 capsule by mouth once daily. hydroCHLOROthiazide (HYDRODIURIL, ESIDRIX) 25 mg tablet Take 1 tablet by mouth once daily. multivitamin tablet Take 1 tablet by mouth once daily. atorvastatin (LIPITOR) 10 mg tablet Take 1 tablet by mouth daily at bedtime. For cholesterol. cholecalciferol, vitamin D3, (VITAMIN D3 ORAL) Take 5,000 Units by mouth once daily. fluticasone (FLONASE) 50 mcg/actuation nasal spray Use 2 Sprays in each nostril once daily. No current facility-administered medications for this visit. ALLERGIES: Blue Dye and Codeine PERSONAL HISTORY: SOCIAL HISTORY Social History Tobacco Use Smoking status: Never Smokeless tobacco: Never Vaping Use Vaping Use: Never used Substance Use Topics Alcohol use: Yes Comment: rarely Drug use: Yes FAMILY HISTORY: FAMILY HISTORY FAMILY HISTORY Problem Relation Age of Onset Cancer Mother Ischemic Heart Disease Father Blood Disease Father Blood Disease Sister 1/2 sis Cancer Maternal Grandmother other (Leiden factor V) Daughter REVIEW OF SYMPTOMS: The review of systems data was entered by the nurse and reviewed by dc Nursing Notes: Lynette Kevin RN 03/03/2023 2:10 PM Signed REVIEW OF SYSTEMS: General: The patient denies fatigue, denies weight loss, denies weight gain, denies feeling hot, and denies feelings of cold. Eyes: The patient denies glaucoma, denies eye injury/surgery, wears glasses or contacts. Ear/Nose/Throat: The patient NOTES allergies, denies hayfever, denies ear infections, and denies bloody noses. Cardiovascular: The patient denies chest pain, denies heart disease, NOTES high blood pressure,denies cardiac stent, denies prior heart attack, denies irregular heart beat, denies high cholesterol, denies poor circulation, denies heart failure, other cardiac issues, denies claudication, denies cold feet, denies peripheral arterial stent. Respiratory: The patient denies tuberculosis, denies pneumonia, denies frequent cough, denies pulmonary embolism, denies shortness of breath, and denies coughing up blood. Gastrointestinal: The patient denies difficulty swallowing, denies acid reflux, denies ulcers, denies vomiting, denies jaundice/hepatitis, NOTES gallbladder problems, denies black or tarry stools, denies hemorrhoids, denies bleeding from rectum, denies diverticulitis, denies constipation, denies diarrhea, denies loss of stool control, and denies hernias. Kidney/Bladder: The patient denies kidney stones, denies urine infections, and denies bloody urine. Skin: The patient denies a history of skin cancer, denies bleeding/changing moles, and denies a history of skin rash. Neurologic: The patient denies a history of epilepsy/convulsions, denies headaches, denies head/spinal injuries, and denies stroke/TIA. Psychiatric: The patient denies psychiatric medications, NOTES depression, and denies voices, denies substance abuse. Endocrine: The patient denies thyroid disorders, denies diabetes, and denies hormonal problems. Hematologic: The patient denies a history of bruising, denies bleeding, and denies anemia, denies blood clots. Infections: The patient denies a history of measles and mumps, denies rheumatic fever, and denies sexually transmitted diseases. Musculoskeletal: The patient denies back pain/injury, NOTES back problems, denies sciatica, denies knee/foot trouble, denies arthritis, or denies gout. When was patient's last Mammogram screening? 08/2022 Last Colonoscopy: 08/19/2020 Lynette Kevin RN I have confirmed and edited as necessary, the PFSH and ROS obtained by others. Niya Alfredo PA-C PHYSICAL EXAMINATION: General: The patient is 57 year old female, well nourished, well hydrated in no acute distress. The patient is oriented to time, place, and person. VITALS: Blood pressure 124/84, pulse 104, temperature 36.3 C (97.4 F), height 165.7 cm (5' 5.25), weight 99.7 kg (219 lb 12.8 oz), last menstrual period 04/12/2017, SpO2 93 %. Body mass index is 36.3 kg/m . HEENT: Normal cephalic, ataumatic, pupils are equally round, sclera are anicteric, mucous membranes are moist, oropharynx is clear. Neck has no masses, asymmetry or lymphadenopathy. Respiratory: Clear to auscultation and percussion. Normal respiratory excursion and pattern. Cardiac: Examination is regular rate and rhythm. Normal S1/S2 Abdominal exam: Soft, nontender, with no palpable masses. No hepatosplenomegaly. No palpable hernias. Extremities: no clubbing, cyanosis or edema. No adenopathy. LABORATORY VALUES: As Noted RADIOLOGIC STUDIES: As Noted IMPRESSION: history of colon polyps, encounter for surveillance colonoscopy PLAN: I have reviewed my findings with the surgeon. Will plan for lower endoscopy. We discussed the risks and benefits of the planned endoscopy. I have informed the patient that complications can occur including failure to complete the endoscopy and perforation. The patient had the opportunity to ask questions concerning the planned endoscopy. My staff has also explained the procedure to the patient in understandable terms and has given the patient printed material concerning the procedure. The patient freely consents to surgery. I plan to use Miralax bowel preparation I have explained to the patient the difference between IV conscious sedation and MAC anesthesia - and I have offered either, according to the patient's wishes. I have explained that with IV conscious sedation there is no anesthesia provider available and therefore there is a limitation of the amount of IV medications that can be given and that the patient may wake up in the middle of the procedure and/or experience pain/discomfort during the procedure. Further discussion was done and the patient was given the opportunity to ask questions and all questions were answered. The patient chooses IV conscious sedation Diagnoses: (Z86.010) History of colonic polyps (primary encounter diagnosis) (D36.9) Tubular adenoma (Z12.11) Encounter for screening for malignant neoplasm of colon Niya Alfredo PA-C HISTORY AND PHYSICAL Kary Spencer Angelina 1965 REFERRING PHYSICIAN: Melia Moreno PA-C CHIEF COMPLAINT: Consult (colonoscopy) HPI: The patient is a 57 year old female referred for endoscopy. Kary notes no colon complaints. Patient denies any change in bowel habits, weight changes, blood in stools, black tarry stools or abdominal pain. Denies family history of colon issues. The patient notes no upper GI complaints. Kary has undergone prior endoscopy. Last colonoscopy 08/19/[address] Snell under conscious sedation with removal of 10 mm adenomatous polyp, 3 year follow up recommended. Patient denies problems with sedation in the past. PAST MEDICAL HISTORY PAST MEDICAL HISTORY Diagnosis Date Colon polyp Depression Environmental allergies Hypertension Pilonidal cyst 1983 Pilonidal cyst 1989 Pilonidal cyst 1994 Snoring PAST SURGICAL HISTORY PAST SURGICAL HISTORY Procedure Laterality Date COLONOSCOPY 02/17/16 Repeat 2019 COLONOSCOPY FLX DX W/COLLJ SPEC WHEN PFRMD 08/19/2020 Colonoscopy repeat in 3 years EXCISION PILONIDAL CYST/SINUS SIMPLE 1989 EXCISION PILONIDAL CYST/SINUS SIMPLE 1994 LAPAROSCOPY SURG CHOLECYSTECTOMY 1998 Cholecystectomy, lap PILONIDAL CYST/SINUS EXCISION 1983 CURRENT MEDICATIONS Current Outpatient Medications Medication Sig FLUoxetine (PROZAC) 40 mg capsule Take 1 capsule by mouth once daily. hydroCHLOROthiazide (HYDRODIURIL, ESIDRIX) 25 mg tablet Take 1 tablet by mouth once daily. multivitamin tablet Take 1 tablet by mouth once daily. atorvastatin (LIPITOR) 10 mg tablet Take 1 tablet by mouth daily at bedtime. For cholesterol. cholecalciferol, vitamin D3, (VITAMIN D3 ORAL) Take 5,000 Units by mouth once daily. fluticasone (FLONASE) 50 mcg/actuation nasal spray Use 2 Sprays in each nostril once daily. No current facility-administered medications for this visit. ALLERGIES: Blue Dye and Codeine PERSONAL HISTORY: SOCIAL HISTORY Social History Tobacco Use Smoking status: Never Smokeless tobacco: Never Vaping Use Vaping Use: Never used Substance Use Topics Alcohol use: Yes Comment: rarely Drug use: Yes FAMILY HISTORY: FAMILY HISTORY FAMILY HISTORY Problem Relation Age of Onset Cancer Mother Ischemic Heart Disease Father Blood Disease Father Blood Disease Sister 1/2 sis Cancer Maternal Grandmother other (Leiden factor V) Daughter REVIEW OF SYMPTOMS: The review of systems data was entered by the nurse and reviewed by dc Nursing Notes: Lynette Kevin RN 03/03/2023 2:10 PM Signed REVIEW OF SYSTEMS: General: The patient denies fatigue, denies weight loss, denies weight gain, denies feeling hot, and denies feelings of cold. Eyes: The patient denies glaucoma, denies eye injury/surgery, wears glasses or contacts. Ear/Nose/Throat: The patient NOTES allergies, denies hayfever, denies ear infections, and denies bloody noses. Cardiovascular: The patient denies chest pain, denies heart disease, NOTES high blood pressure,denies cardiac stent, denies prior heart attack, denies irregular heart beat, denies high cholesterol, denies poor circulation, denies heart failure, other cardiac issues, denies claudication, denies cold feet, denies peripheral arterial stent. Respiratory: The patient denies tuberculosis, denies pneumonia, denies frequent cough, denies pulmonary embolism, denies shortness of breath, and denies coughing up blood. Gastrointestinal: The patient denies difficulty swallowing, denies acid reflux, denies ulcers, denies vomiting, denies jaundice/hepatitis, NOTES gallbladder problems, denies black or tarry stools, denies hemorrhoids, denies bleeding from rectum, denies diverticulitis, denies constipation, denies diarrhea, denies loss of stool control, and denies hernias. Kidney/Bladder: The patient denies kidney stones, denies urine infections, and denies bloody urine. Skin: The patient denies a history of skin cancer, denies bleeding/changing moles, and denies a history of skin rash. Neurologic: The patient denies a history of epilepsy/convulsions, denies headaches, denies head/spinal injuries, and denies stroke/TIA. Psychiatric: The patient denies psychiatric medications, NOTES depression, and denies voices, denies substance abuse. Endocrine: The patient denies thyroid disorders, denies diabetes, and denies hormonal problems. Hematologic: The patient denies a history of bruising, denies bleeding, and denies anemia, denies blood clots. Infections: The patient denies a history of measles and mumps, denies rheumatic fever, and denies sexually transmitted diseases. Musculoskeletal: The patient denies back pain/injury, NOTES back problems, denies sciatica, denies knee/foot trouble, denies arthritis, or denies gout. When was patient's last Mammogram screening? 08/2022 Last Colonoscopy: 08/19/2020 Lynette Kevin RN I have confirmed and edited as necessary, the PFSH and ROS obtained by others. Niya Alfredo PA-C PHYSICAL EXAMINATION: General: The patient is 57 year old female, well nourished, well hydrated in no acute distress. The patient is oriented to time, place, and person. VITALS: Blood pressure 124/84, pulse 104, temperature 36.3 C (97.4 F), height 165.7 cm (5' 5.25), weight 99.7 kg (219 lb 12.8 oz), last menstrual period 04/12/2017, SpO2 93 %. Body mass index is 36.3 kg/m . HEENT: Normal cephalic, ataumatic, pupils are equally round, sclera are anicteric, mucous membranes are moist, oropharynx is clear. Neck has no masses, asymmetry or lymphadenopathy. Respiratory: Clear to auscultation and percussion. Normal respiratory excursion and pattern. Cardiac: Examination is regular rate and rhythm. Normal S1/S2 Abdominal exam: Soft, nontender, with no palpable masses. No hepatosplenomegaly. No palpable hernias. Extremities: no clubbing, cyanosis or edema. No adenopathy. LABORATORY VALUES: As Noted RADIOLOGIC STUDIES: As Noted IMPRESSION: history of colon polyps, encounter for surveillance colonoscopy PLAN: I have reviewed my findings with the surgeon. Will plan for lower endoscopy. We discussed the risks and benefits of the planned endoscopy. I have informed the patient that complications can occur including failure to complete the endoscopy and perforation. The patient had the opportunity to ask questions concerning the planned endoscopy. My staff has also explained the procedure to the patient in understandable terms and has given the patient printed material concerning the procedure. The patient freely consents to surgery. I plan to use Miralax bowel preparation I have explained to the patient the difference between IV conscious sedation and MAC anesthesia - and I have offered either, according to the patient's wishes. I have explained that with IV conscious sedation there is no anesthesia provider available and therefore there is a limitation of the amount of IV medications that can be given and that the patient may wake up in the middle of the procedure and/or experience pain/discomfort during the procedure. Further discussion was done and the patient was given the opportunity to ask questions and all questions were answered. The patient chooses IV conscious sedation Diagnoses: (Z86.010) History of colonic polyps (primary encounter diagnosis) (D36.9) Tubular adenoma (Z12.11) Encounter for screening for malignant neoplasm of colon Niya Alfredo PA-C documented in this encounter [facility] 08-19-2023 History of Present illness Narrative 57 year old female with c/o 6 month follow up Getting a colonoscopy on Wednesday. Says she is starting to get a little arthritis in her hands, but has been ongoing. Essential hypertension (primary encounter diagnosis) Current meds: Hydrochlorothiazide 25 mg daily Patient is compliant with meds No Monitors bp at home: No. If yes, readings: Denies side effects: Yes. Chest pain: No. Dyspnea: No. Edema: No. Palpitations: No. Syncope: No. Headache: No. Dizziness: No. Last 3 Encounter BP Readings: Date: BP: 03/03/2023 124/84 02/16/2023 120/74 08/17/2022 128/86 Last 2 Encounter Wt Readings: Date: Wt: 03/03/2023 99.7 kg (219 lb 12.8 oz) 02/16/2023 99.3 kg (219 lb) Hyperlipidemia, mixed Hyperlipidemia: Current medication Atorvastatin 10 mg daily at bedtime Taking medication consistently Yes Observing low cholesterol high fiber diet Yes, chicken, rice. Sometimes bakery items. Muscle aches No Stomach complaints/ diarrhea No Last 2 Lipids: Component Latest Ref Rng & Units 05/20/2020 08/08/2021 08/12/2022 12/14/2022 Cholesterol, Total <200 mg/dL 185 209 (H) 210 (H) 162 Triglyceride <150 mg/dL 100 140 148 87 HDL Cholesterol >39 mg/dL 49 41 41 52 LDL Cholesterol <100 mg/dL 116 (H) 140 (H) 139 (H) 93 Non HDL Cholesterol <130 mg/dL 136 (H) 168 (H) 169 (H) 110 Fasting Time hrs 8 12 12 12 VLDL Cholesterol <30 mg/dL 20 28 30 (H) 17 TC:HDL Ratio <5.10 3.78 5.10 (H) 5.12 (H) 3.12 LDL:HDL Ratio <2.54 2.37 3.41 (H) 3.39 (H) 1.79 Anxiety with depression Adjustment reaction, depressive, brief Current medications: Fluoxetine 40 mg daily Current status: Feels stable, no crying or feelings of hopeless. Says the medication is very helpful. Vestibular neuronitis of left ear Current: Has been fine, denies hearing loss. Sometimes has ringing. Current medications: Flonase NS 50 mcg/spray 2 sprays each nostril daily Current: Only takes as needed for allergies Supplements: Vitamin D3 5000 units daily Multivitamin tablet daily HISTORIES FAMILY HISTORY Problem Relation Age of Onset Cancer Mother Ischemic Heart Disease Father Blood Disease Father Blood Disease Sister 1/2 sis Cancer Maternal Grandmother other (Leiden factor V) Daughter PAST MEDICAL HISTORY Diagnosis Date Colon polyp Depression Environmental allergies Hypertension Pilonidal cyst 1983 Pilonidal cyst 1989 Pilonidal cyst 1994 Snoring PAST SURGICAL HISTORY Procedure Laterality Date COLONOSCOPY 02/17/16 Repeat 2019 COLONOSCOPY FLX DX W/COLLJ SPEC WHEN PFRMD 08/19/2020 Colonoscopy repeat in 3 years EXCISION PILONIDAL CYST/SINUS SIMPLE 1989 EXCISION PILONIDAL CYST/SINUS SIMPLE 1994 LAPAROSCOPY SURG CHOLECYSTECTOMY 1998 Cholecystectomy, lap PILONIDAL CYST/SINUS EXCISION 1984 Social History Tobacco Use Smoking status: Never Smokeless tobacco: Never Vaping Use Vaping Use: Never used Substance Use Topics Alcohol use: Yes Comment: rarely Drug use: Yes ACTIVE PROBLEM LIST Coccyx Pain Benign Hypertension Abnormal colonoscopy Adjustment Reaction, Depressive, Brief Colon Polyp Screening for Breast Cancer Post Menopausal Syndrome Hyperlipidemia, Mixed Vestibular Neuronitis Current Outpatient Medications Medication Sig Dispense Refill hydroCHLOROthiazide 25 mg tablet Take 1 tablet by mouth once daily. 90 tablet 1 atorvastatin (LIPITOR) 10 mg tablet Take 1 tablet by mouth daily at bedtime. For cholesterol. 90 tablet 1 FLUoxetine (PROZAC) 40 mg capsule Take 1 capsule by mouth once daily. 90 capsule 3 multivitamin tablet Take 1 tablet by mouth once daily. cholecalciferol, vitamin D3, (VITAMIN D3 ORAL) Take 5,000 Units by mouth once daily. fluticasone (FLONASE) 50 mcg/actuation nasal spray Use 2 Sprays in each nostril once daily. No current facility-administered medications for this visit. Hepatitis B Vaccine(1 of 3 - 3-dose series) Never done Hepatitis C Screening Never done HIV Screening Never done BP Controlled (<130/80) Never done Pap Testing due on 10/20/2021 HPV Testing due on 10/20/2021 Influenza Vaccine(1) due on 06/04/2023 Covid-19 Vaccine( season) due on 06/04/2023 Colorectal Cancer Screening due on 08/19/2023 Mammogram Screening due on 09/11/2023 EXAM: BP 122/80 Pulse 106 Temp 36.4 C (97.6 F) (Left Tympanic) Resp 16 Wt 100.7 kg (222 lb) LMP 04/12/2017 SpO2 96% BMI 36.66 kg/m Pleasant adult female in no acute distress. Alert and oriented all spheres. Normal affect and cognition. Speech normal. No deficits to learning or comprehension. Skin warm, dry, pink to lips and nailbeds. Normal turgor. Respirations regular and unlabored. Extrem: no clubbing or cyanosis. Edema: None. Extremities are warm and pink with prompt capillary refill. HEENT: NCAT. No scleral icterus or conjunctival injection. TM's clear. Nose and oropharynx free from injection or lesion. Oral membranes moist and pink. No cervical lymph nodes. Thyroid non-tender, no masses, or enlargement. Carotids pulses 2+/4+ without bruits. No JVD with HOB at 30 degrees. Chest is normal shape. Lungs are clear to all hernadez with good air exchange through out. HRRR without murmur or gallop. No lifts, heaves, or rubs. Extrem: no clubbing, cyanosis, edema. Distal pulses 2+/4, prompt capillary refill. ASSESSMENT/PLAN: 1. Essential hypertension - ICD9: 401.9, ICD10: I10 (primary diagnosis) - Controlled - Recommend home blood pressure monitoring, to bring results to next visit - Encouraged sodium restriction, DASH or Mediterranean diet 2. Hyperlipidemia, mixed - ICD9: 272.2, ICD10: E78.2 - Controlled - Continue current medications - Counseled on healthy diet and regular exercise 3. Anxiety with depression - ICD9: 300.4, ICD10: F41.8 - Stable - Continue Prozac 40 mg capsule once daily PO 4. Adjustment reaction, depressive, brief - ICD9: 309.0, ICD10: F43.21 - Stable 5. Vestibular neuronitis of left ear - ICD9: 386.12, ICD10: H81.22 - Stable, no recurrence of symptoms 6. Acute upper respiratory infection - ICD9: 465.9, ICD10: J06.9 - Discussed viral etiology and rationale for treatment. - Symptomatic treatment with prn analgesia - Supportive care with fluids and rest - COVID & INFLUENZA A/B & RSV NAAT, ROUTINE Some of this note may have been copied and pasted for the purpose of history context and comparison and has been adjusted for changes in prior data. Melia Moreno PA-C documented in this encounter [facility] 06-23-2023 Miscellaneous Notes Patient phones requesting refills as follows: Requested Prescriptions Pending Prescriptions Disp Refills hydroCHLOROthiazide 25 mg tablet 90 tablet 1 Sig: Take 1 tablet by mouth once daily. EDILBERTO 02/16/23 NOV 08/23/23 Please review and advise. Colt Short LPN documented in this encounter [facility] 03-04-2023 Miscellaneous Notes Patient phones requesting refills as follows: Requested Prescriptions Pending Prescriptions Disp Refills atorvastatin (LIPITOR) 10 mg tablet 90 tablet 1 Sig: Take 1 tablet by mouth daily at bedtime. For cholesterol. EDILBERTO-02/16/23 Labs-02/16/23 NOV-08/19/23 Please review and advise. Emily Polk LPN documented in this encounter [facility] 03-03-2023 History of Present illness Narrative HISTORY AND PHYSICAL Kary Spencer Angelina 1965 REFERRING PHYSICIAN: Melia Moreno PA-C CHIEF COMPLAINT: Consult (colonoscopy) HPI: The patient is a 57 year old female referred for endoscopy. Kary notes no colon complaints. Patient denies any change in bowel habits, weight changes, blood in stools, black tarry stools or abdominal pain. Denies family history of colon issues. The patient notes no upper GI complaints. Kary has undergone prior endoscopy. Last colonoscopy 08/19/[address] Snell under conscious sedation with removal of 10 mm adenomatous polyp, 3 year follow up recommended. Patient denies problems with sedation in the past. PAST MEDICAL HISTORY Diagnosis Date Colon polyp Depression Environmental allergies Hypertension Pilonidal cyst 1983 Pilonidal cyst 1989 Pilonidal cyst 1994 Snoring PAST SURGICAL HISTORY Procedure Laterality Date COLONOSCOPY 02/17/16 Repeat 2019 COLONOSCOPY FLX DX W/COLLJ SPEC WHEN PFRMD 08/19/2020 Colonoscopy repeat in 3 years EXCISION PILONIDAL CYST/SINUS SIMPLE 1989 EXCISION PILONIDAL CYST/SINUS SIMPLE 1994 LAPAROSCOPY SURG CHOLECYSTECTOMY 1998 Cholecystectomy, lap PILONIDAL CYST/SINUS EXCISION 1983 Current Outpatient Medications Medication Sig FLUoxetine (PROZAC) 40 mg capsule Take 1 capsule by mouth once daily. hydroCHLOROthiazide (HYDRODIURIL, ESIDRIX) 25 mg tablet Take 1 tablet by mouth once daily. multivitamin tablet Take 1 tablet by mouth once daily. atorvastatin (LIPITOR) 10 mg tablet Take 1 tablet by mouth daily at bedtime. For cholesterol. cholecalciferol, vitamin D3, (VITAMIN D3 ORAL) Take 5,000 Units by mouth once daily. fluticasone (FLONASE) 50 mcg/actuation nasal spray Use 2 Sprays in each nostril once daily. No current facility-administered medications for this visit. ALLERGIES: Blue Dye and Codeine PERSONAL HISTORY: Social History Tobacco Use Smoking status: Never Smokeless tobacco: Never Vaping Use Vaping Use: Never used Substance Use Topics Alcohol use: Yes Comment: rarely Drug use: Yes FAMILY HISTORY: FAMILY HISTORY Problem Relation Age of Onset Cancer Mother Ischemic Heart Disease Father Blood Disease Father Blood Disease Sister 1/2 sis Cancer Maternal Grandmother other (Leiden factor V) Daughter REVIEW OF SYMPTOMS: The review of systems data was entered by the nurse and reviewed by dc Nursing Notes: Lynette Kevin RN 03/03/2023 2:10 PM Signed REVIEW OF SYSTEMS: General: The patient denies fatigue, denies weight loss, denies weight gain, denies feeling hot, and denies feelings of cold. Eyes: The patient denies glaucoma, denies eye injury/surgery, wears glasses or contacts. Ear/Nose/Throat: The patient NOTES allergies, denies hayfever, denies ear infections, and denies bloody noses. Cardiovascular: The patient denies chest pain, denies heart disease, NOTES high blood pressure,denies cardiac stent, denies prior heart attack, denies irregular heart beat, denies high cholesterol, denies poor circulation, denies heart failure, other cardiac issues, denies claudication, denies cold feet, denies peripheral arterial stent. Respiratory: The patient denies tuberculosis, denies pneumonia, denies frequent cough, denies pulmonary embolism, denies shortness of breath, and denies coughing up blood. Gastrointestinal: The patient denies difficulty swallowing, denies acid reflux, denies ulcers, denies vomiting, denies jaundice/hepatitis, NOTES gallbladder problems, denies black or tarry stools, denies hemorrhoids, denies bleeding from rectum, denies diverticulitis, denies constipation, denies diarrhea, denies loss of stool control, and denies hernias. Kidney/Bladder: The patient denies kidney stones, denies urine infections, and denies bloody urine. Skin: The patient denies a history of skin cancer, denies bleeding/changing moles, and denies a history of skin rash. Neurologic: The patient denies a history of epilepsy/convulsions, denies headaches, denies head/spinal injuries, and denies stroke/TIA. Psychiatric: The patient denies psychiatric medications, NOTES depression, and denies voices, denies substance abuse. Endocrine: The patient denies thyroid disorders, denies diabetes, and denies hormonal problems. Hematologic: The patient denies a history of bruising, denies bleeding, and denies anemia, denies blood clots. Infections: The patient denies a history of measles and mumps, denies rheumatic fever, and denies sexually transmitted diseases. Musculoskeletal: The patient denies back pain/injury, NOTES back problems, denies sciatica, denies knee/foot trouble, denies arthritis, or denies gout. When was patient's last Mammogram screening? 08/2022 Last Colonoscopy: 08/19/2020 Lynette Kevin RN I have confirmed and edited as necessary, the PFSH and ROS obtained by others. Niya Alfredo PA-C PHYSICAL EXAMINATION: General: The patient is 57 year old female, well nourished, well hydrated in no acute distress. The patient is oriented to time, place, and person. VITALS: Blood pressure 124/84, pulse 104, temperature 36.3 C (97.4 F), height 165.7 cm (5' 5.25), weight 99.7 kg (219 lb 12.8 oz), last menstrual period 04/12/2017, SpO2 93 %. Body mass index is 36.3 kg/m . HEENT: Normal cephalic, ataumatic, pupils are equally round, sclera are anicteric, mucous membranes are moist, oropharynx is clear. Neck has no masses, asymmetry or lymphadenopathy. Respiratory: Clear to auscultation and percussion. Normal respiratory excursion and pattern. Cardiac: Examination is regular rate and rhythm. Normal S1/S2 Abdominal exam: Soft, nontender, with no palpable masses. No hepatosplenomegaly. No palpable hernias. Extremities: no clubbing, cyanosis or edema. No adenopathy. LABORATORY VALUES: As Noted RADIOLOGIC STUDIES: As Noted Assessment IMPRESSION: history of colon polyps, encounter for surveillance colonoscopy PLAN: I have reviewed my findings with the surgeon. Will plan for lower endoscopy. We discussed the risks and benefits of the planned endoscopy. I have informed the patient that complications can occur including failure to complete the endoscopy and perforation. The patient had the opportunity to ask questions concerning the planned endoscopy. My staff has also explained the procedure to the patient in understandable terms and has given the patient printed material concerning the procedure. The patient freely consents to surgery. I plan to use Miralax bowel preparation I have explained to the patient the difference between IV conscious sedation and MAC anesthesia - and I have offered either, according to the patient's wishes. I have explained that with IV conscious sedation there is no anesthesia provider available and therefore there is a limitation of the amount of IV medications that can be given and that the patient may wake up in the middle of the procedure and/or experience pain/discomfort during the procedure. Further discussion was done and the patient was given the opportunity to ask questions and all questions were answered. The patient chooses IV conscious sedation Diagnoses: (Z86.010) History of colonic polyps (primary encounter diagnosis) (D36.9) Tubular adenoma (Z12.11) Encounter for screening for malignant neoplasm of colon Niya Alfredo PA-C documented in this encounter [facility] 03-03-2023 Nurse Note REVIEW OF SYSTEMS: General: The patient denies fatigue, denies weight loss, denies weight gain, denies feeling hot, and denies feelings of cold. Eyes: The patient denies glaucoma, denies eye injury/surgery, wears glasses or contacts. Ear/Nose/Throat: The patient NOTES allergies, denies hayfever, denies ear infections, and denies bloody noses. Cardiovascular: The patient denies chest pain, denies heart disease, NOTES high blood pressure,denies cardiac stent, denies prior heart attack, denies irregular heart beat, denies high cholesterol, denies poor circulation, denies heart failure, other cardiac issues, denies claudication, denies cold feet, denies peripheral arterial stent. Respiratory: The patient denies tuberculosis, denies pneumonia, denies frequent cough, denies pulmonary embolism, denies shortness of breath, and denies coughing up blood. Gastrointestinal: The patient denies difficulty swallowing, denies acid reflux, denies ulcers, denies vomiting, denies jaundice/hepatitis, NOTES gallbladder problems, denies black or tarry stools, denies hemorrhoids, denies bleeding from rectum, denies diverticulitis, denies constipation, denies diarrhea, denies loss of stool control, and denies hernias. Kidney/Bladder: The patient denies kidney stones, denies urine infections, and denies bloody urine. Skin: The patient denies a history of skin cancer, denies bleeding/changing moles, and denies a history of skin rash. Neurologic: The patient denies a history of epilepsy/convulsions, denies headaches, denies head/spinal injuries, and denies stroke/TIA. Psychiatric: The patient denies psychiatric medications, NOTES depression, and denies voices, denies substance abuse. Endocrine: The patient denies thyroid disorders, denies diabetes, and denies hormonal problems. Hematologic: The patient denies a history of bruising, denies bleeding, and denies anemia, denies blood clots. Infections: The patient denies a history of measles and mumps, denies rheumatic fever, and denies sexually transmitted diseases. Musculoskeletal: The patient denies back pain/injury, NOTES back problems, denies sciatica, denies knee/foot trouble, denies arthritis, or denies gout. When was patient's last Mammogram screening? 08/2022 Last Colonoscopy: 08/19/2020 Lynette Kevin RN documented in this encounter [facility] 02-16-2023 History of Present illness Narrative Radiology Service Progress Note PATIENT NAME: Kary Alfaro DATE OF SERVICE: February 16, 2023 TIME: 9:51 AM PATIENT IDENTITY VERIFICATION COMPLETED USING TWO (2) IDENTIFIERS: Name and Date of confirmed by patient verbally. FALL SCREENING: Has the patient had 2 falls in the last year or 1 fall with injury or currently using an Ambulatory Assistive Device (Walker, Cane, Wheelchair, Crutches, etc.)? No PATIENT GENDER DATA: Female. status: : No status: NO. PATIENT RELEVANT IMPLANT DATA REVIEWED: Not Applicable RADIOLOGY DEPARTMENT: General X-ray: Exam(s) Completed: Spine X-Ray(s): Lumbar AP / LAT / L5-S1 PERIPHERAL IV DATA: Not applicable SIGNED BY: RT Salvador(R) February 16, 2023 9:51 AM documented in this encounter [facility] 12-01-2022 Miscellaneous Notes Patient phones requesting refills as follows: Requested Prescriptions Pending Prescriptions Disp Refills hydroCHLOROthiazide (HYDRODIURIL, ESIDRIX) 25 mg tablet 90 tablet 1 Sig: Take 1 tablet by mouth once daily. EDILBERTO 08/17/22 NOV 02/16/23 Please review and advise. Colt Short LPN documented in this encounter [facility] 10-21-2022 History of Present illness Narrative Patient presents for TDAP vaccine. Denies any problems at this time. Tolerated injection well. Floresita Li LPN documented in this encounter [facility] 10-20-2022 Miscellaneous Notes Telephone on 10/20/22 TDAP VACCINE AGE 7+ IM Thanks, Kevin Moreno PA-C Patient scheduled for nurse visit 10/21/22 to receive TDAP vaccine. Please place order at this time. Floresita Li LPN documented in this encounter [facility] 08-21-2022 Miscellaneous Notes The following approved medication requests have been transmitted electronically. Requested Prescriptions Signed Prescriptions Disp Refills sulfacetamide (BLEPH-10) 10 % ophthalmic solution 6 mL 0 Sig: APPLY ONE DROP TO EYE EVERY 1-3 HOURS UNTIL IMPROVING AND THEN FOUR(4) TIMES A DAY UNTIL THE EYE CLEARS OR UP TO 7-10 DAYS. Authorizing Provider: Melia MORENO PA-C 4:37 PM See [employer] message. Good morning Kevin, I was just in for my sixth month check on Wednesday, I was with my grands yesterday and last night they had pink eye, Rosa was taken to [facility] last evening and they did say it was pink eye and gave them a script for drops or ointment. I woke up this morning with crusty eyes and they are a little pink. Just a hunch I have it too, we are leaving for [place] on Wednesday, May I please have someone call in a script for me to [facility] in [place]? Thank you! Happy Thanksgiving! Kary Alfaro [phone] documented in this encounter [facility] 08-17-2022 History of Present illness Narrative 56 year old female with c/o Current concerns: Knuckles Swollen DIPs in fingers 2-5 in her right hand that have worsened over the last month. Reports working with her hands using small motor skills more than usual lately. Associated soreness in the affected joints, but no diminished motor skills. No redness or heat from affected areas. Has not tried anything OTC for the soreness. Weird hot-cold sensation in right thigh Describes it as an ice cube running down my leg over the top portion of her thigh x 4-5 months. It is not painful, moreso bizarre sensation. Episodes last a few minutes and resolve on their own.The feeling only occurs when she is on her feet and active; it has never occurred while sitting or laying down. Cannot remember an inciting event. Denies alleviating factors. No issues with walking or sensation. Reports it is not bothering her too much but is worried it could be something more. Bit by a tick in July on her abdomen in the RUQ and removed it. Went to urgent care and was given prophylaxis doxycycline. Only symptom has been recurring headache since the bite. Essential hypertension (primary encounter diagnosis) HTN: Current meds: HCTZ 25mg daily Patient is compliant with meds Yes Monitors bp at home: Yes. Once in a while. If yes, readings: ~130s/80s Denies side effects: Yes. Chest pain: Once in a while - occurs when laying on her left side. When she moves it goes away. Dyspnea: No. Edema: No. Palpitations: No. Syncope: No. Headache: Yes - recurring headache since tick bite in July. See above. Dizziness: No. Last 3 Encounter BP Readings: Date: BP: 07/13/2022 156/96 06/22/2022 152/94 04/11/2022 132/96 Last 2 Encounter Wt Readings: Date: Wt: 07/13/2022 99.5 kg (219 lb 6.4 oz) 06/22/2022 98.1 kg (216 lb 3.2 oz) Component Latest Ref Rng & Units 05/20/2020 08/08/2021 08/12/2022 WBC 3.70 - 11.00 k/uL 7.84 7.22 RBC 3.90 - 5.20 m/uL 4.87 5.01 Hemoglobin 11.5 - 15.5 g/dL 14.4 14.8 Hematocrit 36.0 - 46.0 % 44.4 45.7 MCV 80.0 - 100.0 fL 91.2 91.2 MCH 26.0 - 34.0 pg 29.6 29.5 MCHC 30.5 - 36.0 g/dL 32.4 32.4 RDW-CV 11.5 - 15.0 % 12.4 12.7 Platelet Count 150 - 400 k/uL 402 (H) 443 (H) MPV 9.0 - 12.7 fL 10.9 10.1 Neut% % 65.1 Abs Neut (ANC) 1.45 - 7.50 k/uL 5.11 Lymph% % 23.3 Abs Lymph 1.00 - 4.00 k/uL 1.83 [place]% % 8.2 Abs [place] <0.87 k/uL 0.64 Eosin% % 2.6 Abs Eosin <0.46 k/uL 0.20 Baso% % 0.8 Abs Baso <0.11 k/uL 0.06 Nucleated Reds 0 /100 WBC 0.0 Absolute nRBC <0.01 k/uL <0.01 <0.01 Diff Type Auto Diff Protein, Total 6.3 - 8.0 g/dL 7.1 6.8 Albumin 3.9 - 4.9 g/dL 4.1 4.2 Calcium 8.5 - 10.2 mg/dL 9.3 9.6 Bilirubin, Total 0.2 - 1.3 mg/dL 0.4 0.4 Alkaline Phosphatase 34 - 123 U/L 57 57 AST 13 - 35 U/L 13 16 Glucose 74 - 99 mg/dL 83 87 BUN 7 - 21 mg/dL 10 14 Creatinine 0.58 - 0.96 mg/dL 0.87 0.96 Sodium 136 - 144 mmol/L 134 (L) 137 Potassium 3.7 - 5.1 mmol/L 3.6 (L) 3.8 Chloride 97 - 105 mmol/L 97 99 CO2 22 - 30 mmol/L 25 28 Anion Gap 9 - 18 mmol/L 12 10 ALT 7 - 38 U/L 12 17 eGFR- >60 eGFR-All Other Races . >60 eGFR >=60 mL/min/1.73m 70 Hyperlipidemia, mixed. Current medication none Observing low cholesterol high fiber diet Yes Last 2 Lipids: Component Latest Ref Rng & Units 08/08/2021 08/12/2022 Cholesterol, Total <200 mg/dL 209 (H) 210 (H) Triglyceride <150 mg/dL 140 148 HDL Cholesterol >39 mg/dL 41 41 LDL Cholesterol <100 mg/dL 140 (H) 139 (H) Non HDL Cholesterol <130 mg/dL 168 (H) 169 (H) Fasting Time hrs 12 12 VLDL Cholesterol <30 mg/dL 28 30 (H) TC:HDL Ratio <5.10 5.10 (H) 5.12 (H) LDL:HDL Ratio <2.54 3.41 (H) 3.39 (H) Anxiety with depression Adjustment reaction, depressive, brief Current medications: Fluoxetine 40mg daily Doing well. Wants to continue medication. Post menopausal syndrome Current medications: Progesterone micronized 100mg cap daily Adenomatous polyp of ascending colon -Due for screening. Allergy/ Asthma Current medications: Flonase 2 sprays each side daily Albuterol MDI 90mcg HISTORIES FAMILY HISTORY Problem Relation Age of Onset Ischemic Heart Disease Father Blood Disease Father Cancer Mother Cancer Maternal Grandmother Blood Disease Sister 1/2 sis PAST MEDICAL HISTORY Diagnosis Date Colon polyp Depression Environmental allergies Hypertension Pilonidal cyst 1983 Pilonidal cyst 1989 Pilonidal cyst 1994 Snoring PAST SURGICAL HISTORY Procedure Laterality Date COLONOSCOPY 02/17/16 Repeat 2018 COLONOSCOPY FLX DX W/COLLJ SPEC WHEN PFRMD 08/19/2020 Colonoscopy repeat in 3 years EXCISION PILONIDAL CYST/SINUS SIMPLE 1989 EXCISION PILONIDAL CYST/SINUS SIMPLE 1994 LAPAROSCOPY SURG CHOLECYSTECTOMY 1998 Cholecystectomy, lap PILONIDAL CYST/SINUS EXCISION 1983 Social History Tobacco Use Smoking status: Never Smokeless tobacco: Never Substance Use Topics Alcohol use: Yes Comment: rarely Drug use: Yes ACTIVE PROBLEM LIST Coccyx Pain Benign Hypertension Abnormal colonoscopy Adjustment Reaction, Depressive, Brief Colon Polyp Screening for Breast Cancer Post Menopausal Syndrome Hyperlipidemia, Mixed Vestibular Neuronitis Current Outpatient Medications Medication Sig Dispense Refill cholecalciferol, vitamin D3, (VITAMIN D3 ORAL) Take by mouth. albuterol HFA (PROAIR HFA) 90 mcg/actuation inhaler Inhale 2 Puffs as instructed every 4 hours as needed. 1 Each 0 hydroCHLOROthiazide (HYDRODIURIL, ESIDRIX) 25 mg tablet Take 1 tablet by mouth once daily. 90 tablet 1 fluticasone (FLONASE) 50 mcg/actuation nasal spray Use 2 Sprays in each nostril once daily. FLUoxetine (PROZAC) 40 mg capsule Take 1 capsule by mouth once daily. 90 capsule 3 progesterone micronized (PROMETRIUM) 100 mg capsule Take 200 mg by mouth once daily. No current facility-administered medications for this visit. HEPATITIS B(1 of 3 - 3-dose series) Never done HEPATITIS C SCREENING Never done HIV SCREENING Never done BP CONTROLLED (<130/80) Never done DEPRESSION ASSESSMENT Never done PAP TESTING due on 10/20/2021 HPV TESTING due on 10/20/2021 MAMMOGRAM due on 08/27/2022 Eyes: denies change in vision, glaucoma, cataracts. Reading glasses/contacts. Last eye exam: 2021 EENT: denies recurrent sinus infection, unusual nasal drainage, hoarsemess, sore throat, or recurrent sore in mouth or tongue. Cardiovascular: denies chest pain , SOB, palpitation, irregular or racing heart beats, orthopnea, leg swelling, history of rheumatic fever or prior heart conditions Respiratory: denies unusual cough, SOB, wheezing, history of recurrent bronchitis, pneumonia or tuberculosis. Denies day time drowsiness. + Occasional Snoring GI: denies difficulty swallowing, nausea, vomiting, change in appetite. No change in bowel habits. Denies constipation, diarrhea, rectal bleeding or hemorrhoids, incontinence. No history of GERD, PUD, jaundice/hepatitis, GB disease, diverticulosis, colorectal cancer, hernias. Kidney/Bladder: Denies frequency, burning. Nocturia 1x a night. + Stress incontinence with coughing. No history of kidney stones, recurrent UTI or kidney infection. Females: Denies hx of ovarian cysts, pelvic infection,tubal , abnormal pap. Skin: denies unusual rashes. No history of skin cancer, bleeding/changing moles, or unusual skin lesions. Neurologic: Denies recurrent GROSS, change in vision, hearing or smell, tremors, unusual weakness, loss of sensation, or difficulty with balance or gait. No history of epilepsy/convulsions, migraine, head/spinal injuries, or stroke/TIA. Psychiatric: denies unusual worry, moodiness, depression, suicidal ideation or unusual disturbance in relationships. No history of psychiatric illness. Endocrine: denies unusual thirst, hunger, excessive urination, change in skin or hair texture, emotional lability. No history of thryoid, pituitary or hormonal problems. Hematologic: denies unusual bleeding, bruising, or history of anemia or blood transfusion. Denies hx blood clots. Infections: denies risk factors for HIV, hepatitis or history of unusual infection. Immunizations are up to date. Musculoskeletal: denies unusual stiffness, muscles aches, joint pain, or swelling. Denies recurrent sprain or disruption of joints, debilitating arthritis, gout, or other musculoskeletal disease. Denies Hx back injury, spinal stenosis, radiculopathy. EXAM: BP 128/86 Pulse 95 Wt 97.1 kg (214 lb) LMP 04/12/2017 SpO2 98% BMI 35.34 kg/m Pleasant WDWN female in no acute distress. Alert and oriented all spheres. Normal affect and cognition. Speech normal. No deficits to learning or comprehension. Skin warm, dry, pink to lips and nailbeds. Normal turgor. HEENT: NCAT. No scleral icterus or conjunctival injection. TM's clear. Nose and oropharynx free from injection or lesion. Oral membranes moist and pink. No cervical lymph nodes. Thyroid NSSC and nontender. Carotids +2 without bruits. Cardiopulmonary: Respirations regular and unlabored. Lungs CTA bilaterally. HRRR without murmurs or gallop. No lifts, heaves, or rubs Extrem: no clubbing or cyanosis. Edema: none. Extremities are warm and pink with prompt capillary refill. Patellar reflexes +2 b/l. MSK: DIPs bilateral index fingers with Hebreden's, right middle Jose. Normal strength and ROM. Remainder of joints without edema or deformity. ASSESSMENT/PLAN: 1. Essential hypertension - ICD9: 401.9, ICD10: I10 (primary diagnosis) - good control - Continue current medication(s) - Recommended regular aerobic exercise. - Recommend home blood pressure monitoring, to bring results in on next visit - Goal of BP <130/80 2. Hyperlipidemia, mixed - ICD9: 272.2, ICD10: E78.2 - suboptimal control - Check fasting lipid panel 3. Anxiety with depression - ICD9: 300.4, ICD10: F41.8 Stable: continue medication 4. Adjustment reaction, depressive, brief - ICD9: 309.0, ICD10: F43.21 Stable on medication 5. 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 Adenomatous polyp of ascending colon - ICD9: 211.3, ICD10: D12.2 Due for surveillance: just bladder stimulator surgery. Will address next visit. Melia Moreno PA-C documented in this encounter [facility] 07-13-2022 History of Present illness Narrative 07/13/2022 Patient presents with: Insect Bite: Tick bite on stomach x 1 day SUBJECTIVE: This is a 56 year old that is here today for Complaint(s) of tick on stomach x yesterday. pulled tick off. Uncertain how long it was attached. Thinks likely less than 48 hours, likely <12 hours. She was camping in the area this past weekend. Denies fever/chills, rash, myalgias. PAST MEDICAL HISTORY Diagnosis Date Colon polyp Depression Environmental allergies Hypertension Pilonidal cyst 1983 Pilonidal cyst 1989 Pilonidal cyst 1994 Snoring ALLERGIES Blue Dye and Codeine MEDICATIONS Current Outpatient Medications Medication Sig cholecalciferol, vitamin D3, (VITAMIN D3 ORAL) Take by mouth. albuterol HFA (PROAIR HFA) 90 mcg/actuation inhaler Inhale 2 Puffs as instructed every 4 hours as needed. hydroCHLOROthiazide (HYDRODIURIL, ESIDRIX) 25 mg tablet Take 1 tablet by mouth once daily. fluticasone (FLONASE) 50 mcg/actuation nasal spray Use 2 Sprays in each nostril once daily. FLUoxetine (PROZAC) 40 mg capsule Take 1 capsule by mouth once daily. progesterone micronized (PROMETRIUM) 100 mg capsule Take 200 mg by mouth once daily. No current facility-administered medications for this visit. SOCIAL HISTORY Social History Tobacco Use Smoking status: Never Smokeless tobacco: Never Substance Use Topics Alcohol use: Yes Comment: rarely Drug use: Yes REVIEW OF SYSTEMS See HPI OBJECTIVE: BP 156/96 Pulse 95 Temp 36.9 C (98.5 F) Resp 21 Wt 99.5 kg (219 lb 6.4 oz) LMP 04/12/2017 SpO2 98% BMI 36.23 kg/m APPEARANCE Well appearing, alert, in no acute distress, well-hydrated, well nourished. SKIN 3-4 mm area of mild erythema with central dark pin point coloration-possible retained piece of tick. No lymphangitic streaking. No TTP. No obvious erythema migrans elsewhere ASSESSMENT/PLAN: 1. Tick bite of abdomen, initial encounter - ICD9: 911.4, E906.4, ICD10: S30.861A, W57.XXXA Tick removed by patient. Advised any remaining parts will naturally expel. No signs of infection. No erythema migrans. Cover with 1 prophylactic dose of doxycycline. Reviewed red flags and when to seek care sooner. The patient indicates understanding of these issues and agrees with the plan. Alisha Florentino PA-C documented in this encounter [facility] 06-22-2022 History of Present illness Narrative Subjective HPI HPI Kary Alfaro is a 56 year old female who presents today for CC of cough, congestion, wheezing. This started 5 days ago. Has tried otc medication for relief. Symptoms are worsened by nothing. Risk factors [place]. Hx of allergies. Denies asthma history. .Patient presents with: Cough: Sinus congestion, chest congestion, wheezing x5 days PAST MEDICAL HISTORY Diagnosis Date Colon polyp Depression Environmental allergies Hypertension Pilonidal cyst 1983 Pilonidal cyst 1989 Pilonidal cyst 1994 Snoring PAST SURGICAL HISTORY Procedure Laterality Date COLONOSCOPY 02/17/16 Repeat 2019 COLONOSCOPY FLX DX W/COLLJ SPEC WHEN PFRMD 08/19/2020 Colonoscopy repeat in 3 years EXCISION PILONIDAL CYST/SINUS SIMPLE 1989 EXCISION PILONIDAL CYST/SINUS SIMPLE 1994 LAPAROSCOPY SURG CHOLECYSTECTOMY 1998 Cholecystectomy, lap PILONIDAL CYST/SINUS EXCISION 1983 ALLERGIES Blue Dye and Codeine MEDICATIONS cholecalciferol, vitamin D3, (VITAMIN D3 ORAL) Take by mouth. hydroCHLOROthiazide (HYDRODIURIL, ESIDRIX) 25 mg tablet Take 1 tablet by mouth once daily. fluticasone (FLONASE) 50 mcg/actuation nasal spray Use 2 Sprays in each nostril once daily. FLUoxetine (PROZAC) 40 mg capsule Take 1 capsule by mouth once daily. progesterone micronized (PROMETRIUM) 100 mg capsule Take 200 mg by mouth once daily. FAMILY HISTORY Problem Relation Age of Onset Ischemic Heart Disease Father Blood Disease Father Cancer Mother Cancer Maternal Grandmother Blood Disease Sister 1/2 sis Social History Tobacco Use Smoking status: Never Smokeless tobacco: Never Substance Use Topics Alcohol use: Yes Comment: rarely Drug use: Yes ROS Objective Blood pressure 152/94, pulse 114, temperature 36.8 C (98.3 F), resp. rate 18, weight 98.1 kg (216 lb 3.2 oz), last menstrual period 04/12/2017, SpO2 95 %.bp rechecked 140/86 manual by provider. Physical Exam Constitutional: General: She is not in acute distress. Appearance: She is not toxic-appearing or diaphoretic. HENT: Head: Normocephalic and atraumatic. Cardiovascular: Rate and Rhythm: Normal rate and regular rhythm. Heart sounds: Normal heart sounds, S1 normal and S2 normal. Pulmonary: Effort: Pulmonary effort is normal. Breath sounds: Wheezing (scattered bilat) and rhonchi (scattered bilat) present. No decreased breath sounds or rales. Lymphadenopathy: Cervical: No cervical adenopathy. Right cervical: No superficial cervical adenopathy. Left cervical: No superficial cervical adenopathy. Neurological: Mental Status: She is alert and oriented to person, place, and time. Gait: Gait is intact. ASSESSMENT/PLAN: 1. URI, acute - ICD9: 465.9, ICD10: J06.9 (primary diagnosis) - Discussed viral etiology and rationale for treatment. - Symptomatic treatment with prn analgesia - Supportive care with fluids and rest - Follow up in 3-5 days if symptoms persist or sooner if worsening of symptoms - ALBUTEROL SULFATE HFA 90 MCG/ACTUATION AEROSOL INHALER 2. Wheeze - ICD9: 786.07, ICD10: R06.2 Xray negative Will order prednisone and inhaler -If you experience chest pain/shortness of breath go to ER - XR CHEST 2V FRONTAL/LAT IMPRESSION: No acute radiographic abnormality. Dictated by : PARAM POLK MD - ALBUTEROL SULFATE HFA 90 MCG/ACTUATION AEROSOL INHALER Agrees to plan Dale Glez APRN.TONNY documented in this encounter [facility] 06-22-2022 History of Present illness Narrative Radiology Service Progress Note PATIENT NAME: Kary Alfaro DATE OF SERVICE: June 22, 2022 TIME: 9:02 AM PATIENT IDENTITY VERIFICATION COMPLETED USING TWO (2) IDENTIFIERS: Name and Date of confirmed by patient verbally. FALL SCREENING: Has the patient had 2 falls in the last year or 1 fall with injury or currently using an Ambulatory Assistive Device (Walker, Cane, Wheelchair, Crutches, etc.)? No PATIENT GENDER DATA: Female. status: : No status: NO. PATIENT RELEVANT IMPLANT DATA REVIEWED: Yes RADIOLOGY DEPARTMENT: General X-ray: Exam(s) Completed: Chest X-Ray PERIPHERAL IV DATA: Not applicable SIGNED BY: RT Maya(R) June 22, 2022 9:02 AM documented in this encounter [facility] 06-11-2022 Miscellaneous Notes Patient Simmrhart message requesting the following refill. Requested Prescriptions Pending Prescriptions Disp Refills hydroCHLOROthiazide (HYDRODIURIL, ESIDRIX) 25 mg tablet 90 tablet 1 Sig: Take 1 tablet by mouth once daily. Patient last appointment: 02/13/2022 Patient Phone numbers: [phone] (home) Request is for script(s) to be escript to pharmacy. Geni Dhaliwal documented in this encounter [facility] 04-12-2022 Miscellaneous Notes Patient given results and verbalized understanding of instructions given. Ines Connolly Negative for flu and covid please notify thank you documented in this encounter [facility] 04-11-2022 Instructions Frieda Shah APRN.CNP - 04/11/2022 9:45 AM EDT RESPIRATORY INFECTION GENERAL INFORMATION: An upper respiratory tract infection, or cold, is a viral infection of the airway passages. It can be caused by any one of almost 200 different viruses. Common symptoms include a runny or stuffy nose, sneezing, watery eyes, sore throat, cough, and slight fever. Colds are contagious, especially during the first 3 or 4 days and cannot be cured by antibiotics. They are spread by coughs, sneezes, and direct contact, especially [id number]. A respiratory tract infection usually clears up in a few days, but some people may be sick for a week or two. INSTRUCTIONS: 1. Be careful not to blow your nose too hard because this may cause a nosebleed. 2. Use a cool-mist humidifier (vaporizer) to increase air moisture. This will make it easier for you to breathe. Do not use hot steam. 3. Rest as much as possible and get plenty of sleep. 4. Wash your hands often, especially after you blow your nose. Cover your mouth and nose with a tissue when you sneeze or cough. 5. Drink plenty of clear fluids (8 glasses a day) such as water, fruit juice, tea, clear soups, and carbonated beverages. CONTACT YOUR DOCTOR IF : 1. Your fever lasts more than 3 days. 2. You have a sore throat that gets worse or you see white or yellow spots in your throat. 3. Your cough gets worse or lasts more than 10 days. 4. You develop a rash anywhere on your skin. 5. You have an earache or a headache. 6. You have thick greenish or yellowish discharge from your nose. RETURN IMMEDIATELY IF: 1. You cough up thick yellow, green, mazariegos, or bloody sputum. 2. You have difficulty breathing, pain in your chest, or your skin or nails look mazariegos or blue. 3. You have shaking chills or a temperature over 102 F (39 C). documented in this encounter [facility] 04-11-2022 History of Present illness Narrative This note was created using NoteWriter. Subjective Kary Alfaro is a 56 year old female. 56 year old female with PMH hyperlipidemia and HTN presents for illness. Acute onset of symptoms was 6 days ago +cough, productive at times, but mostly dry +sore throat +fatigue Denies body aches. Denies N/V/D Denies CP. Denies SOB or dyspnea. Denies skin rash or lesions. Denies fever or chills. Has utilized Delsym and Flonase with mild relief. Has used Claritin as well. Denies tobacco usage. Attended a wedding last week. The history is provided by the patient. No speech language pathologist was used. URI She complains of cough. There is no chest tightness, difficulty breathing, frequent throat clearing, hemoptysis, hoarse voice, shortness of breath, sputum production or wheezing. This is a new problem. The current episode started in the past 7 days. The problem occurs constantly. The problem has been unchanged. Cough characteristics: productive and non productive. Associated symptoms include ear congestion, malaise/fatigue, nasal congestion and a sore throat. Pertinent negatives include no appetite change, chest pain, dyspnea on exertion, ear pain, fever, headaches, heartburn, myalgias, orthopnea, PND, postnasal drip, rhinorrhea, sneezing, sweats, trouble swallowing or weight loss. Her symptoms are aggravated by nothing. Her symptoms are alleviated by nothing. There are no known risk factors for lung disease. There is no history of asthma, bronchiectasis, bronchitis, COPD, emphysema or pneumonia. PAST MEDICAL HISTORY Diagnosis Date Colon polyp Depression Environmental allergies Hypertension Pilonidal cyst 1983 Pilonidal cyst 1989 Pilonidal cyst 1994 Snoring PAST SURGICAL HISTORY Procedure Laterality Date COLONOSCOPY 02/17/16 Repeat 2019 COLONOSCOPY FLX DX W/COLLJ SPEC WHEN PFRMD 08/19/2020 Colonoscopy repeat in 3 years EXCISION PILONIDAL CYST/SINUS SIMPLE 1989 EXCISION PILONIDAL CYST/SINUS SIMPLE 1994 LAPAROSCOPY SURG CHOLECYSTECTOMY 1998 Cholecystectomy, lap PILONIDAL CYST/SINUS EXCISION 1983 ALLERGIES Blue Dye and Codeine MEDICATIONS fluticasone (FLONASE) 50 mcg/actuation nasal spray Use 2 Sprays in each nostril once daily. FLUoxetine (PROZAC) 40 mg capsule Take 1 capsule by mouth once daily. hydroCHLOROthiazide (HYDRODIURIL, ESIDRIX) 25 mg tablet Take 1 tablet by mouth once daily. progesterone micronized (PROMETRIUM) 100 mg capsule Take 200 mg by mouth once daily. FAMILY HISTORY Problem Relation Age of Onset Ischemic Heart Disease Father Blood Disease Father Cancer Mother Cancer Maternal Grandmother Blood Disease Sister 1/2 sis Social History Tobacco Use Smoking status: Never Smoker Smokeless tobacco: Never Used Substance Use Topics Alcohol use: Yes Comment: rarely Drug use: Yes Review of Systems Constitutional: Positive for fatigue and malaise/fatigue. Negative for appetite change, chills, fever and weight loss. HENT: Positive for congestion and sore throat. Negative for ear pain, hoarse voice, postnasal drip, rhinorrhea, sneezing and trouble swallowing. Eyes: Negative for pain, discharge, redness and itching. Respiratory: Positive for cough. Negative for apnea, hemoptysis, sputum production, choking, chest tightness, shortness of breath and wheezing. Cardiovascular: Negative for chest pain, dyspnea on exertion, palpitations, leg swelling and PND. Gastrointestinal: Negative for abdominal pain, diarrhea, heartburn, nausea and vomiting. Musculoskeletal: Negative for arthralgias, back pain, gait problem and myalgias. Skin: Negative for color change, pallor, rash and wound. Allergic/Immunologic: Negative for environmental allergies, food allergies and immunocompromised state. Neurological: Negative for dizziness, facial asymmetry and headaches. Hematological: Negative for adenopathy. Does not bruise/bleed easily. Psychiatric/Behavioral: Negative for agitation and behavioral problems. Objective BP 132/96 Pulse 103 Temp 36.4 C (97.5 F) Resp 20 Wt 95.7 kg (211 lb) LMP 04/12/2017 SpO2 94% BMI 34.84 kg/m Physical Exam Vitals and nursing note reviewed. Constitutional: General: She is not in acute distress. Appearance: Normal appearance. She is normal weight. She is not ill-appearing, toxic-appearing or diaphoretic. HENT: Head: Normocephalic and atraumatic. Right Ear: Ear canal and external ear normal. Left Ear: Ear canal and external ear normal. Nose: Nose normal. No congestion or rhinorrhea. Mouth/Throat: Mouth: Mucous membranes are moist. Pharynx: Posterior oropharyngeal erythema (mild posterior erythema. Uvula midline. ) present. No oropharyngeal exudate. Eyes: General: Right eye: No discharge. Left eye: No discharge. Extraocular Movements: Extraocular movements intact. Conjunctiva/sclera: Conjunctivae normal. Pupils: Pupils are equal, round, and reactive to light. Cardiovascular: Rate and Rhythm: Normal rate and regular rhythm. Pulses: Normal pulses. Heart sounds: Normal heart sounds. No murmur heard. No friction rub. Pulmonary: Effort: Pulmonary effort is normal. No respiratory distress. Breath sounds: Normal breath sounds. No stridor. No wheezing, rhonchi or rales. Chest: Chest wall: No tenderness. Abdominal: General: Abdomen is flat. There is no distension. Palpations: Abdomen is soft. There is no mass. Tenderness: There is no abdominal tenderness. There is no right CVA tenderness, left CVA tenderness, guarding or rebound. Hernia: No hernia is present. Musculoskeletal: General: No swelling, tenderness, deformity or signs of injury. Normal range of motion. Cervical back: Normal range of motion and neck supple. No rigidity. Right lower leg: No edema. Left lower leg: No edema. Lymphadenopathy: Cervical: No cervical adenopathy. Skin: General: Skin is warm and dry. Capillary Refill: Capillary refill takes less than 2 seconds. Coloration: Skin is not jaundiced or pale. Findings: No bruising, erythema, lesion or rash. Neurological: General: No focal deficit present. Mental Status: She is alert and oriented to person, place, and time. Cranial Nerves: No cranial nerve deficit. Sensory: No sensory deficit. Motor: No weakness. Coordination: Coordination normal. Gait: Gait normal. Psychiatric: Mood and Affect: Mood normal. Behavior: Behavior normal. Thought Content: Thought content normal. Judgment: Judgment normal. Assessment and Plan ASSESSMENT/PLAN: 1. Viral illness - ICD9: 079.99, ICD10: B34.9 (primary diagnosis) - Discussed viral etiology and rationale for treatment. - Rapid strep negative in office today - Symptomatic treatment with prn analgesia - Supportive care with fluids and rest - The patient may also use OTC cough and cold meds as needed, warm salt water gargles, throat lozenges and/or OTC throat spray as needed and nasal saline gtts and suction prn. - Follow up in 3-5 days if symptoms persist or sooner if worsening of symptoms - COVID WITH FLUA+B, ROUTINE-obtained and pending. 2. Pharyngitis, unspecified etiology - ICD9: 462, ICD10: J02.9 - suspect viral - Rapid Strep negative in the office today - Discussed supportive care treatment with fluids, rest and analgesia. - The patient may also use OTC cough and cold meds as needed, warm salt water gargles, throat lozenges and/or OTC throat spray as needed and nasal saline gtts and suction prn. - Contagious dz precautions discussed- including considered contagious until on antibiotics for 24 hours - The patient should follow up in 3-5 days if symptoms persist or worsen - Call back if drooling, increased temperature, symptoms of dehydration and/or still sick in one week - STREP A MOLECULAR (POC) Frieda Shah APRN.TONNY documented in this encounter [facility] 02-13-2022 Instructions Melia Moreno PA-C - 02/13/2022 10:15 AM EDT Cholesterol What is cholesterol? Cholesterol is a type of fat that circulates in your blood. Cholesterol comes from two sources: Your body makes some cholesterol on its own, regardless of what you eat. Cholesterol also comes from the foods you eat. Cholesterol is found only in animal products. Foods from plants do not contain cholesterol. How does cholesterol travel in the blood? Cholesterol can't travel in the blood on its own. It's carried by special proteins. Combinations of cholesterol and protein carriers are called lipoproteins. There are two types of lipoproteins: Low-density lipoproteins (LDLs, or bad cholesterol) High-density lipoproteins (HDLs, or good cholesterol) Think of LDLs as delivery trucks and HDLs as garbage trucks. LDLs pickling drum operator cholesterol from the liver and deliver it to cells. HDLs remove excess cholesterol from the blood and take it to the liver. A person's total cholesterol level is a combination of LDL and HDL cholesterol. What's so bad about cholesterol? Your body produces more than enough cholesterol on its own to stay healthy. Most Americans eat far too much cholesterol and fat, which can raise blood cholesterol levels. High levels of cholesterol can lead to heart disease. Excess LDL cholesterol in your blood gets deposited in arteries, the blood vessels that feed the heart and brain. These deposits can join with other substances to form plaque. Plaque is a thick, hard deposit in the blood vessel. The name for build-up of plaque in the arteries is atherosclerosis, or hardening of the arteries. Plaque can narrow the passageway inside the artery and pinch off the flow of blood to the heart muscle. How can I get my cholesterol level checked? Your health care provider can check your cholesterol level by taking a sample of blood. The blood sample will be sent to a lab for testing. The test will show your total cholesterol level. How much cholesterol is too much? A healthy cholesterol level depends on a variety of factors, including: Your level of HDL cholesterol compared with your level of LDL cholesterol Your total cholesterol Your number of risk factors for heart disease Your age and activity level Your current health status Be sure to discuss your test results with your health care provider. High total cholesterol does not always indicate an increased risk for heart disease. If you have high total cholesterol and high HDL cholesterol, you may not have an increased risk. Women, in particular, have higher HDL levels than men. For example, a woman with high HDL levels can have a total cholesterol level of 240 or over without an increased risk. Risk factors for heart disease Diabetes Smoking High blood pressure Poor blood cholesterol Obesity Sedentary lifestyle Age (men, age 45 and older; women, age 55 and older) Family history of heart disease How can I lower my cholesterol? Here are few tips for lowering cholesterol: Eat fewer fats and fried foods. Choose non-fat and low-fat versions of foods, if available. When eating fats, select unsaturated fats. (Unsaturated fats are liquid at room temperature vegetable oils, for example. Avoid tropical oils, such as palm and coconut oil.) Choose fish and poultry more often than red meat. Limit total amount of meat, fish, poultry, and low-fat cheeses to 7 ounces or less each day. Exercise. If you smoke, quit. Lose extra weight. Eat more soluble fiber. Good sources are fruits, beans, peas, and oats. Limit egg yolks to no more than three per week. (Egg whites are fat-free.) Where can I learn more? National Heart, Lung, and Blood [place] [facility] Health Information [facility] Attention: Web Site [address] [address] [place] [address] TTY e-mail: For all correspondence, please indicate that your request results from your visit to the NHL[employer] website, www.nhlbi.nih.gov/health. Copyright 7117-5924 The [facility]. All rights reserved. This information is provided by the [facility] and is not intended to replace the medical advice of your doctor or health care provider. Please consult your health care provider for advice about a specific medical condition. For additional written health information, please contact the Health Information Center at the [facility] or toll-free extension [phone]. This document was last reviewed on: 2003 Eating to Lower Your Cholesterol It's fairly easy to lower your blood cholesterol. Here are some simple daily tips: Use up at least as many calories as you take in. Be physically active. Aim for at least 30 minutes of physical activity on most days of the week, if not all. Eat a variety of nutrient-rich foods. Eat a diet rich in vegetables and fruits. Choose whole-grain, high-fiber foods. Eat fish at least twice a week. Eat less of the nutrient-poor foods. Limit how much saturated fat, trans fat and cholesterol you eat. Choose lean meats and poultry without skin and prepare them without added saturated and trans fat. Select fat-free, 1 percent fat, and low-fat dairy products. Cut back on foods containing partially hydrogenated vegetable oils to reduce trans fat in your diet. Cut back on foods high in dietary cholesterol. Choose and prepare foods with little or no salt. If you drink alcohol, drink in moderation. Follow the [place] [employer] recommendations when you eat out. Read the nutrition facts label and ingredients list. Adapted from the [place] [employer]: www.americanheart.org Guidelines for low cholesterol, low triglyceride diets FOODS TO USE MEATS/FISH - Choose lean meats (chicken, turkey, veal, and nonfatty cuts of beef with excess fat trimmed; one serving = 3 oz. of cooked meat). Also, fresh or frozen fish, canned fish packed in water, and shellfish (lobster, crab, shrimp, oysters). Limit use to no more than one serving of one of these per week. Shellfish are high in cholesterol but low in saturated fat and should be used sparingly. Meats and fish should be broiled (garland or oven) or baked on a rack. EGGS - Egg substitutes and egg whites (use freely). Egg yolks (limit two per week). FRUITS - Eat three servings of fresh fruit per day (1 serving = 1/2 cup). Be sure to have at least one citrus fruit daily. Frozen or canned fruit with no sugar or syrup added may be used. VEGETABLES - Most vegetables are not limited (see Foods to Avoid). One dark green (string beans, escarole) or one deep yellow (squash) vegetable is recommended daily. Cauliflower, broccoli, and celery, as well as potato skins, are recommended for their fiber content (fiber is associated with cholesterol reduction). It is preferable to steam vegetables, but they may be boiled, strained, or braised with polyunsaturated vegetable oil (see below). BEANS - Dried peas or beans (1 serving = 1/2 cup) may be used as a bread substitute. NUTS - Almonds, walnuts, and peanuts may be used sparingly (1 serving = 1 tablespoon). Use pumpkin, sesame, or sunflower seeds. BREADS/GRAINS - One roll or one slice of whole grain or enriched bread may be used, or three soda crackers or four pieces of doris toast as a substitute. Spaghetti, rice or noodles (1/2 cup) or 1/2 large ear of corn may be used as a bread substitute. In preparing these foods, do not use butter or shortening; use soft margarine. Also use egg and sugar substitutes. Choose high fiber grains, such as oats and whole wheat. CEREALS - Use 1/2 cup of hot cereal or 1/4 cup of cold cereal per day. Add a sugar substitute if desired, with 99% fat-free or skim milk. MILK PRODUCTS - Always use 99% fat-free or skim milk, dairy products such as low-fat cheeses (nolan's, uncreamed diet cottage), low-fat yogurt, and powdered skim milk. FATS/OILS - Use soft (not stick) margarine, vegetable oils that are high in polyunsaturated fats (such as safflower, sunflower, soybean, corn, and cottonseed). Always refrigerate meat drippings to harden the fat and remove it before preparing gravies. DESSERTS/SNACKS - Limit to two servings per day; substitute each serving for a bread/cereal serving; ice milk or water sherbet (1/4 cup); unflavored gelatin or gelatin flavored with sugar substitute (1/2 cup); pudding prepared with skim milk (1/2 cup); egg white souffles; unbuttered popcorn (1 1/2 cups). Substitute carob for chocolate. BEVERAGES - Fresh fruit juices (limit to 4 oz. per day); black coffee; plain or herbal teas; soft drinks with sugar substitutes; club soda, preferably salt-free; cocoa made with skim milk or nonfat dried milk and water (sugar substitute added, if desired); clear broth. Alcohol - limit to two servings per day (see Foods to Avoid). MISCELLANEOUS - You may use the following freely: vinegar; spices; herbs; nonfat bouillon; mustard; Worcestershire sauce; soy sauce; flavoring essence. FOODS TO AVOID MEATS/FISH - Marbled beef, pork, payne, sausage and other pork products; fatty fowl (duck, goose); skin and fat of turkey and chicken; processed meats; luncheon meats (salami, bologna); frankfurters and fast food hambergers (they are loaded with fat); organ meats (kidneys, liver); canned fish packed in oil. EGGS - Limit egg yolks to two per week. FRUITS - Coconuts (rich in saturated fat) VEGETABLES - Avoid avocados. Starchy vegetables (potatoes, corn tran beans, dried peas, beans) may be used only if they are substitutes for a serving of bread or cereal. (Baked potato skin, however, is desirable for its fiber content). BEANS - Commercial baked beans with sugar and/or pork added. NUTS - Avoid nuts. Limit peanuts and walnuts to one tablespoonful per day. BREADS/GRAINS - Any baked goods with shortening and/or sugar. Commercial mixes with dried eggs and whole milk. Avoid sweet rolls, doughnuts, breakfast pastries (Armenian), and sweetened packaged cereals (the added sugar converts readily to triglycerides). MILK PRODUCTS - Whole milk and whole-milk packaged goods; cream; ice cream; whole-milk puddings, yogurt, or cheeses; nondairy cream substitutes. FATS/OILS - Butter, lard, animal fats, payne drippings, gravies, cream sauces, as well as palm and coconut oils. All these are high in saturated fats. Examine labels on cholesterol free products for hydrogenated fats. (These are oils that have been hardened into solids and in the process have become saturated.) DESSERTS/SNACKS - Fried snack foods like potato chips; chocolate; candies in general; jams, jellies, syrups; whole-milk puddings; ice cream and milk sherberts; hydrogenatd peanut butter. BEVERAGES - Sugared fruit juices and soft drinks; cocoa made with whole milk and/or sugar. When using alcohol (1 oz. liquor, 5 oz. beer, or 2 1/2 oz. dry table wine per serving), one serving must be substituted for one bread or cereal serving (limit two servings of alcohol per day). documented in this encounter [facility] 02-13-2022 History of Present illness Narrative 56 year old female with c/o here for follow up. Doing well. Notes a little sleepy and sluggish, better with improved weather. Essential hypertension Current meds: HCTZ 25mg daily Patient is compliant with meds No Monitors bp at home: No. If yes, readings: Denies side effects: No. Chest pain: No. Dyspnea: No. Edema: No. Palpitations: No. Syncope: No. Headache: No. Dizziness: No. Last 3 Encounter BP Readings: Date: BP: 08/15/2021 126/82 06/05/2020 120/58 05/27/2020 136/80 Last 2 Encounter Wt Readings: Date: Wt: 08/15/2021 93.9 kg (207 lb) 06/05/2020 90.7 kg (199 lb 15.3 oz) Hyperlipidemia, mixed Current medication none Observing low cholesterol high fiber diet Yes 10yr CV event risk 5% Last 2 Lipids: Component Latest Ref Rng & Units 05/20/2020 08/08/2021 Cholesterol, Total <200 mg/dL 185 209 (H) Triglyceride <150 mg/dL 100 140 HDL Cholesterol >39 mg/dL 49 41 LDL Cholesterol <100 mg/dL 116 (H) 140 (H) Non HDL Cholesterol <130 mg/dL 136 (H) 168 (H) Fasting Time hrs 8 12 VLDL Cholesterol <30 mg/dL 20 28 TC:HDL Ratio <5.10 3.78 5.10 (H) LDL:HDL Ratio <2.54 2.37 3.41 (H) Anxiety with depression Current medications: Fluoxetine 40mg daily PHQ-9 02/13/2022 Score 1 LEONARDO - 7 SCORES 02/13/2022 LEONARDO-7 Score 0 HISTORIES FAMILY HISTORY Problem Relation Age of Onset Ischemic Heart Disease Father Blood Disease Father Cancer Mother Cancer Maternal Grandmother Blood Disease Sister 1/2 sis PAST MEDICAL HISTORY Diagnosis Date Colon polyp Depression Environmental allergies Hypertension Pilonidal cyst 1983 Pilonidal cyst 1989 Pilonidal cyst 1994 Snoring PAST SURGICAL HISTORY Procedure Laterality Date COLONOSCOP W/ OR W/O BRSH SPEC 08/19/2020 Colonoscopy repeat in 3 years COLONOSCOPY 02/17/16 Repeat 2019 LAPAROSCOPIC CHOLEYCYSTECTOMY 1999 Cholecystectomy, lap PILONIDAL CYST/SINUS EXCISION 1983 PILONIDAL CYST/SINUS EXCISION 1989 PILONIDAL CYST/SINUS EXCISION 1994 Social History Tobacco Use Smoking status: Never Smoker Smokeless tobacco: Never Used Substance Use Topics Alcohol use: Yes Comment: rarely Drug use: Yes ACTIVE PROBLEM LIST Coccyx Pain Benign Hypertension Abnormal colonoscopy Adjustment Reaction, Depressive, Brief Colon Polyp Screening for Breast Cancer Post Menopausal Syndrome Current Outpatient Medications Medication Sig Dispense Refill hydroCHLOROthiazide (HYDRODIURIL, ESIDRIX) 25 mg tablet Take 1 tablet by mouth once daily. 90 tablet 1 FLUoxetine HCl (PROZAC) 40 mg capsule Take 1 capsule by mouth once daily. 90 capsule 1 progesterone micronized (PROMETRIUM) 100 mg capsule Take 200 mg by mouth once daily. COMPOUNDED PRESCRIPTION BIEST 2.5 mg 0.1 ml once per day pseudoephedrine (SUDAFED) 30 mg tablet Take 15 mg by mouth twice daily as needed. No current facility-administered medications for this visit. HEPATITIS C SCREENING Never done HIV SCREENING Never done BP CONTROLLED (<130/80) Never done COVID-19 VACCINE(3 - Booster for Moderna series) due on 06/25/2021 PAP TESTING due on 10/20/2021 HPV TESTING due on 10/20/2021 DEPRESSION SCREENING due on 12/02/2021 EXAM: BP 120/78 Pulse 82 Resp 16 Wt 94.3 kg (208 lb) LMP 04/12/2017 SpO2 96% BMI 34.35 kg/m Pleasant adult woman in no acute distress. Alert and oriented all spheres. Normal affect and cognition. Speech normal. No deficits to learning or comprehension. Skin warm, dry, pink to lips and nailbeds. Normal turgor. Respirations regular and unlabored. HEENT: NCAT. No scleral icterus or conjunctival injection. TM's clear. Nose and oropharynx free from injection or lesion. Oral membranes moist and pink. No cervical lymph nodes. Thyroid non-tender, no masses, or enlargement. Carotids pulses 2+/4+ without bruits. No JVD with HOB at 30 degrees. Chest is normal shape. Lungs are clear to all hernadez with good air exchange through out. HRRR without murmur or gallop. No lifts, heaves, or rubs. Extrem: no clubbing or cyanosis. Edema: none. Extremities are warm and pink with prompt capillary refill. ASSESSMENT/PLAN: 1. Essential hypertension - ICD9: 401.9, ICD10: I10 (primary diagnosis) - good control - Continue current medication(s) - Recommended regular aerobic exercise. - Recommend home blood pressure monitoring, to bring results in on next visit - Goal of BP <130/80 - BASIC METABOLIC PNL 2. Anxiety with depression - ICD9: 300.4, ICD10: F41.8 Well controlled - CBC - COMP METABOLIC PANEL - FLUOXETINE 40 MG CAPSULE 3. Hyperlipidemia, mixed - ICD9: 272.2, ICD10: E78.2 - suboptimal control - Encouraged following a low fat, low cholesterol diet. - Discussed the benefits of regular aerobic exercise and weight loss. - LIPID PANEL BASIC Melia Moreno PA-C documented in this encounter [facility] 02-06-2022 Evaluation + Plan note Diagnostic Tests PendingEstradiol Level 02/06/22Progesterone Level 02/06/22Testosterone Level Total 02/06/22Dehydroepiandrosterone Sulfate 02/06/22 [facility] 11-16-2021 Hospital Discharge instructions Patient Education 11/15/2021 22:26:25 Ventricular Arrhythmia Ventricular Arrhythmia The heart has its own electrical system to regulate the heartbeat. An abnormal change in the rate or pattern of the heartbeat is called an arrhythmia. It can cause the heart to move blood less efficiently. Four chambers hold blood as it moves through the heart. The 2 lower chambers of the heart are called ventricles. Problems with the signals in the heart can make the ventricles beat faster than normal. Ventricular tachycardia (VT) Rapid electrical from the ventricles can result in a fast heart rhythm called ventricular tachycardia or VT. With VT, abnormal electrical pathways or circuits form in the ventricles. This can be caused by any disease that damages the heart muscle. It's most commonly seen as a result of a heart attack or coronary artery disease. Electrical signals enter the abnormal circuit and loop around. With each loop, the signal tells the ventricles to contract. This makes the heart beat very fast. The heart may be beating too fast to pump blood. This can cause you to pass out. It can also cause cardiac arrest, leading to sudden . In some cases, VT develops into ventricular fibrillation. This is the most serious type of arrhythmia as it is fatal if not promptly treated. Ventricular fibrillation (VF) At times, electrical signals may be sent so fast and unevenly that the heart muscle quivers and doesn t beat at all. This is called fibrillation: VF can occur if the ventricles contain several abnormal circuits, or if the heart muscle is acutely injured such as from a heart attack, and becomes electrically unstable. Signals caught in the circuits make the ventricles beat very quickly and unevenly. This keeps the heart muscle from pumping properly. The heart can get to the point that it can t pump at all. This is called cardiac arrest. will occur if emergency treatment isn t given to return the heart rhythm to normal. [id number] [employer]. [address] [place] [address]. All rights reserved. This information is not intended as a substitute for professional medical care. Always follow your healthcare professional's instructions. 11/15/2021 22:25:52 Common Middle Ear Problems Common Middle Ear Problems Your middle ear may have been injured or infected recently. Over time, certain growths or bone disease can also harm the middle ear. Left untreated, middle ear problems often lead to lifelong hearing loss. There are two types of hearing loss: conductive and sensorineural. One or both kinds can occur. Injury, infection, certain growths, or bone disease can cause your symptoms. A ruptured eardrum or a long-lasting (chronic) ear infection may be painful and decrease hearing. Symptoms Hearing loss in one or both ears Fluid, often smelly, draining from the ear Pain, pressure, or discomfort in the ear Ringing in the ear Conductive and sensorineural hearing loss Sound waves may be disrupted before they reach the inner ear. If this happens, conductive hearing loss may occur. The ear canal can be blocked by wax, infection, a tumor, or a foreign object. The eardrum can be injured or infected. Abnormal bone growth, infection, or tumors in the middle ear can block sound waves. Sound waves may not be processed correctly in the inner ear. If this happens, sensorineural hearing loss may occur. Permanent hearing loss is most commonly associated with sensorineural problems. The tests and evaluations used to diagnose what type of hearing problem you have will depend on your symptoms. [employer]. [address] [place] [address]. All rights reserved. This information is not intended as a substitute for professional medical care. Always follow your healthcare professional's instructions. 11/15/2021 22:25:49 Hypokalemia Hypokalemia Hypokalemia means a low level of potassium in the blood. This most often occurs in people who take water pills (diuretics). It can also occur because of severe vomiting or diarrhea. You may also have it if you take laxatives for long periods of time. It sometimes happens if you have low magnesium (hypomagnesemia). If you have this, your healthcare provider will treat the low magnesium first. A mild case of hypokalemia usually causes no symptoms. It is only found with blood testing. More severe potassium loss causes overall weakness, muscle or abdominal cramps, rapid or irregular heartbeats (heart palpitations), low blood pressure, and muscle weakness. Home care Take any potassium supplements as prescribed. Eat foods rich in potassium. The highest amount is found in avocado, baked potatoes, spinach, cantaloupe, cod, halibut, salmon, and scallops. White, red, or sparrow beans are also very good sources. A modest amount of potassium is found in orange juice, bananas, carrots, and tomato juice. If you take certain types of diuretics, you will also need to take potassium supplements. If you take a diuretic, discuss potassium supplements with your doctor. Follow-up care Follow up with your healthcare provider for a repeat blood test within the next week, or as advised by our staff. When to seek medical advice Call your healthcare provider right away if any of the following occur: Increased weakness, fatigue, or muscle cramps Dizziness Call 911 Call 911 if any of the following occur: Irregular heartbeat, extra beats, or very fast heart rate Loss of consciousness [employer]. [address] [place] [id number]. All rights reserved. This information is not intended as a substitute for professional medical care. Always follow your healthcare professional's instructions. 11/15/2021 22:25:46 Dizziness, Uncertain Cause Dizziness (Uncertain Cause) Dizziness is a common symptom. It may be described as lightheadedness, spinning, or feeling like you are going to faint. Dizziness can have many causes. Be sure to tell the healthcare provider about: All medicines you take, including prescription, [id number], herbs, and supplements Any other symptoms you have Any health problems you are being treated for Any past major health problems you've had, such as a heart attack, balance issues, hearing problems, or blood pressure problems Anything that causes the dizziness to get worse or better Today's exam did not show an exact cause for your dizziness. Other tests may be needed. Follow up with your healthcare provider. Home care Dizziness that occurs with sudden standing may be a sign of mild dehydration. Drink extra fluids for the next few days. If you recently started a new medicine, stopped a medicine, or had the dose of a current medicine changed, talk with the prescribing healthcare provider. Your medicine plan may need adjustment. If dizziness lasts more than a few seconds, sit or lie down until it passes. This may help prevent injury in case you pass out. Get up slowly when you feel better. Don't drive or use power tools or dangerous equipment until you have had no dizziness for at least 48 hours. Follow-up care Follow up with your healthcare provider for further evaluation within the next 7 days or as advised. When to seek medical advice Call your healthcare provider for any of the following: Worsening of symptoms or new symptoms Passing out or seizure Repeated vomiting Headache Palpitations (the sense that your heart is fluttering or beating fast or hard) Shortness of breath Blood in vomit or stool (black or red color) Weakness of an arm or leg or 1 side of the face Vision or hearing changes Trouble walking or speaking Chest, arm, neck, back, or jaw pain [id number] [employer]. [address] [place] [address], [place] [address]. All rights reserved. This information is not intended as a substitute for professional medical care. Always follow your healthcare professional's instructions. Follow Up Care 11/15/2021 20:06:39 With:Melia MORENO Address: [facility] [address] [place] [address] [address] [place] [address]- When:2-4 days [facility] 11-15-2021 Evaluation + Plan note Diagnostic Tests PendingUrine Culture 11/15/21 [facility] 04-26-2017 History of Past i llness Narrative Problem Noted Date Resolved Date Hypertension 04/26/2017 documented as of this encounter (statuses as of 02/13/2022) [address]2017 History of Past illness Narrative* Problem Noted Date Resolved Date Hypertension 04/26/2017 documented as of this encounter (statuses as of 04/11/2022) [address]2017 History of Past illness Narrative* Problem Noted Date Resolved Date Hypertension 04/26/2017 documented as of this encounter (statuses as of 04/12/2022) [address] History of Past illness Narrative* Problem Noted Date Resolved Date Hypertension 04/26/2017 documented as of this encounter (statuses as of 06/11/2022) [address] History of Past illness Narrative* Problem Noted Date Resolved Date Hypertension 04/26/2017 documented as of this encounter (statuses as of 06/22/2022) [address]2017 History of Past illness Narrative* Problem Noted Date Resolved Date Hypertension 04/26/2017 documented as of this encounter (statuses as of 07/14/2022) [address]2017 History of Past illness Narrative* Problem Noted Date Resolved Date Hypertension 04/26/2017 documented as of this encounter (statuses as of 08/10/2022) [address] History of Past illness Narrative* Problem Noted Date Resolved Date Hypertension 04/26/2017 documented as of this encounter (statuses as of 08/17/2022) [address] History of Past illness Narrative* Problem Noted Date Resolved Date Hypertension 04/26/2017 documented as of this encounter (statuses as of 08/21/2022) [address] History of Past illness Narrative* Problem Noted Date Resolved Date Hypertension 04/26/2017 documented as of this encounter (statuses as of 10/15/2022) [place] [id number] History of Past illness Narrative* Problem Noted Date Resolved Date Hypertension 04/26/2017 documented as of this encounter (statuses as of 10/20/2022) [place] [id number] History of Past illness Narrative* Problem Noted Date Resolved Date Hypertension 04/26/2017 documented as of this encounter (statuses as of 10/21/2022) [place] [id number] History of Past illness Narrative* Problem Noted Date Resolved Date Hypertension 04/26/2017 documented as of this encounter (statuses as of 12/02/2022) [place] [id number] History of Past illness Narrative* Problem Noted Date Resolved Date Hypertension 04/26/2017 documented as of this encounter (statuses as of 03/04/2023) [place] [address] History of Past illness Narrative* Problem Noted Date Resolved Date Hypertension 04/26/2017 documented as of this encounter (statuses as of 03/05/2023) [place] [address] History of Past illness Narrative* Problem Noted Date Diagnosed Date Resolved Date Hypertension 04/26/2017 documented as of this encounter (statuses as of 06/23/2023) [place] [id number] History of Past illness Narrative* Problem Noted Date Diagnosed Date Resolved Date Hypertension 04/26/2017 documented as of this encounter (statuses as of 08/19/2023) [place] [id number] History of Past illness Narrative* Problem Noted Date Diagnosed Date Resolved Date Hypertension 04/26/2017 documented as of this encounter (statuses as of 09/10/2023) [place] [id number] History of Past illness Narrative* Problem Noted Date Diagnosed Date Resolved Date Hypertension 04/26/2017 documented as of this encounter (statuses as of 09/16/2023) [place] [id number] History of Past illness Narrative* Problem Noted Date Diagnosed Date Resolved Date Hypertension 04/26/2017 documented as of this encounter (statuses as of 12/17/2023) [facility] Diagnosis Essential hypertension- Primary Unspecified essential hypertension Anxiety with depression Hyperlipidemia, mixed Mixed hyperlipidemia [facility] Diagnosis Viral illness- Primary Unspecified viral infection, in conditions classified elsewhere and of unspecified site Pharyngitis, unspecified etiology [facility] Diagnosis Essential hypertension Unspecified essential hypertension [facility] Diagnosis URI, acute- Primary Acute upper respiratory infections of unspecified site Wheeze Wheezing [facility]* Diagnosis Tick bite of abdomen, initial encounter- Primary documented in this encounter [facility] note* Diagnosis Essential hypertension- Primary Unspecified essential hypertension Hyperlipidemia, mixed Mixed hyperlipidemia Anxiety with depression Adjustment reaction, depressive, brief Adjustment disorder with depressed mood Post menopausal syndrome Asymptomatic postmenopausal status (age-related) (natural) Adenomatous polyp of ascending colon Vitamin D deficiency Unspecified vitamin D deficiency [facility]* Diagnosis Encounter for immunization- Primary Need for other specified prophylactic vaccination against single bacterial disease documented in this encounter [facility] note* Diagnosis Encounter for immunization- Primary Need for other specified prophylactic vaccination against single bacterial disease [facility] Diagnosis Essential hypertension Unspecified essential hypertension documented in this encounter [facility] note* Diagnosis History of colonic polyps- Primary Personal history of colonic polyps Tubular adenoma Benign neoplasm of unspecified site Encounter for screening for malignant neoplasm of colon Special screening for malignant neoplasms, colon [facility]* Diagnosis Essential hypertension Unspecified essential hypertension [facility]* Diagnosis Essential hypertension- Primary Unspecified essential hypertension Hyperlipidemia, mixed Mixed hyperlipidemia Anxiety with depression Adjustment reaction, depressive, brief Adjustment disorder with depressed mood Vestibular neuronitis of left ear Vestibular neuronitis Acute upper respiratory infection Acute upper respiratory infections of unspecified site [facility]* Diagnosis History of colon polyps- Primary Personal history of colonic polyps History of colonic polyps Personal history of colonic polyps [facility]* Diagnosis Essential hypertension Unspecified essential hypertension [facility]* Diagnosis Benign hypertension- Primary Essential hypertension, benign Hyperlipidemia, mixed Mixed hyperlipidemia Vestibular neuronitis of left ear Vestibular neuronitis Coccyx pain Other disorder of coccyx Adenomatous polyp of ascending colon Post menopausal syndrome Asymptomatic postmenopausal status (age-related) (natural) Adjustment reaction, depressive, brief Adjustment disorder with depressed mood Anxiety with depression Tick bite of right thigh, subsequent encounter Somatic dysfunction of left sacroiliac joint documented in this encounter [facility] note* Diagnosis Adjustment reaction, depressive, brief- Primary Adjustment disorder with depressed mood Benign hypertension Essential hypertension, benign Hyperlipidemia, mixed Mixed hyperlipidemia documented in this encounter [facility] note* Diagnosis Lumbar back pain Lumbago [facility] [facility] Diagnosis Essential hypertension Unspecified essential hypertension documented in this encounter [facility] note* Diagnosis Hyperlipidemia, mixed- Primary Mixed hyperlipidemia Anxiety with depression Encounter for immunization Need for other specified prophylactic vaccination against single bacterial disease Essential hypertension Unspecified essential hypertension Special screening examination for viral disease Special screening examination for unspecified viral disease Screening for diabetes mellitus Vitamin D deficiency Unspecified vitamin D deficiency documented in this encounter [facility] note* Diagnosis Motion sickness, sequela- Primary Hyperlipidemia, mixed Mixed hyperlipidemia Anxiety with depression Encounter for screening examination for other mental health and behavioral disorders Screening for depression Encounter for immunization Need for other specified prophylactic vaccination against single bacterial disease documented in this encounter [facility] note* Diagnosis Acute cough- Primary URI, acute Acute upper respiratory infections of unspecified site Acute bronchitis, unspecified organism Acute cough documented in this encounter [facility] note* Diagnosis Acute cough documented in this encounter [facility] note* Diagnosis Nausea- Primary Nausea alone documented in this encounter [facility] course Narrative No data available for this section [facility] Discharge instructions No data available for this section [facility] Progress note No data available for this section [facility] Reason for referral (narrative)* Outpatient Procedure (Routine) - Closed Specialty Diagnoses / Procedures Referred By Ethel t Referred To Contact [facility] Diagnoses History of colonic polyps Procedures COLONOSCOPY SCREENING COLONOSCOPY FLX DX W/COLLJ SPEC WHEN PFRMD Niya Alfredo PA-C [address] [place] [address] [facility] [address] [place] [address] [place] [address] Referral ID Status Reason Start Date Expiration Date V isits Requested Visits Authorized [id number] Closed Auto-Generate d Referral 08/17/2023 10/03/2023 1 1 [facility] for referral (narrative)* Diagnostic Procedure Only (Routine) - Closed Specialty Diagnoses / Procedures Referred By Contac t Referred To Contact XR IMAGING Diagnoses Lumbar back pain Procedures XR LUMBAR GENERAL 3V AP/LAT/L5-S1 RADEX SPINE LUMBOSACRAL 2/3 VIEWS Melia Moreno PA-C [address] [place] [address] [place] [address] Referral ID Status Reason Start Date Expiration Date V isits Requested Visits Authorized [id number] Closed Auto-Generate d Referral 02/16/2023 03/17/2024 1 1 [facility] for visit Narrative* Outpatient Procedure (Routine) - Closed Specialty Diagnoses / Procedures Referred By Contac t Referred To Contact [facility] Diagnoses History of colonic polyps Procedures COLONOSCOPY SCREENING COLONOSCOPY FLX DX W/COLLJ SPEC WHEN PFRMD Niya Alfredo PA-C [address] [place] [address] [facility] [address] [place] [address] Referral ID Status Reason Start Date Expiration Date V isits Requested Visits Authorized [id number] Closed Auto-Generate d Referral 08/17/2023 10/03/2023 1 1 [facility] for visit Narrative* Diagnostic Procedure Only (Routine) - Closed Specialty Diagnoses / Procedures Referred By Contac t Referred To Contact XR IMAGING Diagnoses Lumbar back pain Procedures XR LUMBAR GENERAL 3V AP/LAT/L5-S1 RADEX SPINE LUMBOSACRAL 2/3 VIEWS Melia Moreno PA-C [address] [place] [address] [place] [address] Referral ID Status Reason Start Date Expiration Date V isits Requested Visits Authorized [id number] Closed Auto-Generate d Referral 02/16/2023 03/17/2024 1 1 [facility] Summary Purpose Family History No Family History Records Found No data available for this section No Family History Records Found No data available for this section No Family History Records FoundNo Family History Records Found Advance Directives No Advanced Directives Records FoundDocuments on File Type Date 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 Advance Directive(s) 08/19/2020 7:54 AM Advance Directive(s) 08/19/2020 8:00 AM Advance Directive(s) 02/18/2016 9:59 PM Advance Directive(s) 02/05/2016 10:01 AM Health Concerns Infection Onset Date Last Indicated Resolved Time COVID-19 Rule-Out 04/11/2022 04/11/2022 Infection Onset Date Last Indicated Resolved Time COVID-19 Rule-Out 04/11/2022 04/11/2022 04/12/2022 1:13 AM EDT Medications Administered Section Inactive Administered Medications - up to 3 most recent administrations Medication Order MAR Action Action Date Dose Rate Site diphenhydrAMINE 12.5-50 mg injection (BENADRYL) 12.5-50 mg, INTRAVENOUS, DIRECTED, Starting on Heidi 09/09/23 at 1230, Until Heidi 09/09/23 at 1629, DOSING DIRECTED BY PHYSICIAN FOR PROCEDURAL SEDATION ONLY, Intraprocedure Given 09/09/2023 12:30 PM EST 50 mg fentaNYL 50 mcg/mL 25-100 mcg injection (SUBLIMAZE) 25-100 mcg, INTRAVENOUS, DIRECTED, Starting on Heidi 09/09/23 at 1230, Until Heidi 09/09/23 at 1629, DOSING DIRECTED BY PHYSICIAN FOR PROCEDURAL SEDATION ONLY, Intraprocedure Given 09/09/2023 12:38 PM EST 50 mcg Given 09/09/2023 12:28 PM EST 50 mcg lactated ringers iv infusion 75 mL/hr, INTRAVENOUS, CONTINUOUS, Starting on Heidi 09/09/23 at 1200, Until Heidi 09/09/23 at 1302, Preprocedure New Bag/Syringe/Bottle 09/09/2023 12:00 PM EST 75 mL/hr 75 mL/hr Arm, Right midazolam 1-5 mg injection (VERSED) 1-5 mg, INTRAVENOUS, DIRECTED, Starting on Heidi 09/09/23 at 1230, Until Heidi 09/09/23 at 1629, DOSING DIRECTED BY PHYSICIAN FOR PROCEDURAL SEDATION ONLY, Intraprocedure Given 09/09/2023 12:36 PM EST 2 mg Given 09/09/2023 12:32 PM EST 2 mg Given 09/09/2023 12:28 PM EST 3 mg ondansetron (PF) 4 mg injection (ZOFRAN) 4 mg, INTRAVENOUS, DIRECTED, Starting on Heidi 09/09/23 at 1300, Until Heidi 09/09/23 at 1659, Dosing as directed for intraprocedural use only, Intraprocedure Given 09/09/2023 12:42 PM EST 4 mg simethicone 20-40 mg oral liquid (MYLICON) 20-40 mg, OTHER, DIRECTED, Starting on Heidi 09/09/23 at 1230, Until Heidi 09/09/23 at 1629, Dosing as directed for intraprocedural use only Shake Well, Intraprocedure Given 09/09/2023 12:36 PM EST 40 mg Additional Source Comments INFORMATION SOURCE (unrecogn ized section and content) DATE CREATED AUTHOR 04/26/2020 [facility] DATE CREATED AUTHOR AUTHOR'S ORGANIZ ATION 09/16/2023 [facility] ([place]) DATE CREATED AUTHOR AUTHOR'S ORGANIZ ATION 09/25/2024 [facility] DATE CREATED AUTHOR AUTHOR'S ORGANIZ ATION 08/11/2025 [facility] Care Team (unrecognized sect ion and content) Mastic Sprayer Relationship Specialty Start Date End Date Melia Moreno PA-C [address] [place] [address] PCP - General Family Practice 01/23/16 Mastic Sprayer Relationship Specialty Start Date End Date Melia Moreno PA-C [address] [place] [address] PCP - General Family Practice 01/23/16 Mastic Sprayer Relationship Specialty Start Date End Date Melia Moreno PA-C [address] [place] [address] PCP - General Family Practice 01/23/16 Mastic Sprayer Relationship Specialty Start Date End Date Melia Moreno PA-C [address] [place] [address] PCP - General Family Practice 01/23/16 Mastic Sprayer Relationship Specialty Start Date End Date Melia Moreno PA-C [address] [facility] [place] [address] PCP - General Family Medicine 01/23/16 Mastic Sprayer Relationship Specialty Start Date End Date Melia Moreno PA-C [address] [place] [address] PCP - General Family Medicine 01/23/16 Mastic Sprayer Relationship Specialty Start Date End Date Melia Moreno PA-C [address] [place] [address] PCP - General Family Medicine 01/23/16 Mastic Sprayer Relationship Specialty Start Date End Date Melia Moreno PA-C [address] [facility] [place] [address] PCP - General Family Medicine 01/23/16 Mastic Sprayer Relationship Specialty Start Date End Date Melia Moreno PA-C [address] [facility] [place] [address] PCP - General Family Medicine 01/23/16 Mastic Sprayer Relationship Specialty Start Date End Date Melia Moreno PA-C [address] [facility] [place] [address] PCP - General Family Medicine 01/23/16 Mastic Sprayer Relationship Specialty Start Date End Date Melia Moreno PA-C [address] [place] [address] PCP - General Family Medicine 01/23/16 Mastic Sprayer Relationship Specialty Start Date End Date Melia Moreno PA-C [address] [facility] [place] [address] PCP - General Family Medicine 01/23/16 Mastic Sprayer Relationship Specialty Start Date End Date Mleia Moreno PA-C [address] [facility] [place] [address] PCP - General Family Medicine 01/23/16 Mastic Sprayer Relationship Specialty Start Date End Date Melia Moreno PA-C [address] [facility] [place] [address] PCP - General Family Medicine 01/23/16 Mastic Sprayer Relationship Specialty Start Date End Date Melia Moreno PA-C [address] [facility] [place] [address] PCP - General Family Medicine 01/23/16 Mastic Sprayer Relationship Specialty Start Date End Date Melia Moreno PA-C [address] [facility] [place] [address] PCP - General Family Medicine 01/23/16 Mastic Sprayer Relationship Specialty Start Date End Date Melia Moreno PA-C [address] [facility] [place] [address] PCP - General Family Medicine 01/23/16 Mastic Sprayer Relationship Specialty Start Date End Date Melia Moreno PA-C [address] [facility] [place] [address] PCP - General Family Medicine 01/23/16 Mastic Sprayer Relationship Specialty Start Date End Date Melia Moreno PA-C [address] [facility] [place] [address] PCP - General Family Medicine 01/23/16 Mastic Sprayer Relationship Specialty Start Date End Date Melia Moreno PA-C [address] [facility] [place] [address] PCP - General Family Medicine 01/23/16 Mastic Sprayer Relationship Specialty Start Date End Date Melia Moreno PA-C [address] [facility] [place] [address] PCP - General Family Medicine 01/23/16 Mastic Sprayer Relationship Specialty Start Date End Date Melia Moreno PA-C [address] [facility] [place] [address] PCP - General Family Medicine 01/23/16 Mastic Sprayer Relationship Specialty Start Date End Date Mali Smith, PRINTING ROLLER POLISHER.EXCELLENCE COACH [address] [facility] [place] [address] PCP - General Family Medicine 08/22/24 Mastic Sprayer Relationship Specialty Start Date End Date Mali Smith, PRINTING ROLLER POLISHER.EXCELLENCE COACH [address] [facility] [place] [address] PCP - General Family Medicine 08/22/24 Mastic Sprayer Relationship Specialty Start Date End Date Mali Smith, PRINTING ROLLER POLISHER.EXCELLENCE COACH [address] [facility] [place] [address] PCP - General Family Medicine 08/22/24 Mastic Sprayer Relationship Specialty Start Date End Date Mali Smith, PRINTING ROLLER POLISHER.EXCELLENCE COACH [address] [facility] [place] [address] PCP - General Family Medicine 08/22/24 Mastic Sprayer Relationship Specialty Start Date End Date Mali Smith, PRINTING ROLLER POLISHER.EXCELLENCE COACH [address] [facility] [place] [address] PCP - General Family Medicine 08/22/24 Mastic Sprayer Relationship Specialty Start Date End Date Mali Smith, PRINTING ROLLER POLISHER.EXCELLENCE COACH [address] [place] [address] PCP - General Family Medicine 08/22/24 Mastic Sprayer Relationship Specialty Start Date End Date Mali Smith APRN.EXCELLENCE COACH [address] [facility] [place] [address] PCP - General Family Medicine 08/22/24 Mastic Sprayer Relationship Specialty Start Date End Date Mali Smith APRN.EXCELLENCE COACH [address] [facility] [place] [address] PCP - General Family Medicine 08/22/24 Source Comments (unrecognize d section and content) In the event this informatio n is protected by the Federal Confidentiality of Alcohol and Drug Abuse Patient Records regulations: The Federal rules restrict any use of the information to criminally investigate or prosecute any alcohol or drug abuse patient.[facility] the event this information is protected by the Federal Confidentiality of Alcohol and Drug Abuse Patient Records regulations: The Federal rules restrict any use of the information to criminally investigate or prosecute any alcohol or drug abuse patient.[facility] the event this information is protected by the Federal Confidentiality of Alcohol and Drug Abuse Patient Records regulations: The Federal rules restrict any use of the information to criminally investigate or prosecute any alcohol or drug abuse patient.[facility] the event this information is protected by the Federal Confidentiality of Alcohol and Drug Abuse Patient Records regulations: The Federal rules restrict any use of the information to criminally investigate or prosecute any alcohol or drug abuse patient.[facility] HospitalIn the event this information is protected by the Federal Confidentiality of Alcohol and Drug Abuse Patient Records regulations: The Federal rules restrict any use of the information to criminally investigate or prosecute any alcohol or drug abuse patient.[facility] HospitalIn the event this information is protected by the Federal Confidentiality of Alcohol and Drug Abuse Patient Records regulations: The Federal rules restrict any use of the information to criminally investigate or prosecute any alcohol or drug abuse patient.[facility] HospitalIn the event this information is protected by the Federal Confidentiality of Alcohol and Drug Abuse Patient Records regulations: The Federal rules restrict any use of the information to criminally investigate or prosecute any alcohol or drug abuse patient.[facility] HospitalIn the event this information is protected by the Federal Confidentiality of Alcohol and Drug Abuse Patient Records regulations: The Federal rules restrict any use of the information to criminally investigate or prosecute any alcohol or drug abuse patient.[facility] the event this information is protected by the Federal Confidentiality of Alcohol and Drug Abuse Patient Records regulations: The Federal rules restrict any use of the information to criminally investigate or prosecute any alcohol or drug abuse patient.[facility] the event this information is protected by the Federal Confidentiality of Alcohol and Drug Abuse Patient Records regulations: The Federal rules restrict any use of the information to criminally investigate or prosecute any alcohol or drug abuse patient.[facility] HospitalIn the event this information is protected by the Federal Confidentiality of Alcohol and Drug Abuse Patient Records regulations: The Federal rules restrict any use of the information to criminally investigate or prosecute any alcohol or drug abuse patient.[facility] HospitalIn the event this information is protected by the Federal Confidentiality of Alcohol and Drug Abuse Patient Records regulations: The Federal rules restrict any use of the information to criminally investigate or prosecute any alcohol or drug abuse patient.[facility] HospitalIn the event this information is protected by the Federal Confidentiality of Alcohol and Drug Abuse Patient Records regulations: The Federal rules restrict any use of the information to criminally investigate or prosecute any alcohol or drug abuse patient.[facility] HospitalIn the event this information is protected by the Federal Confidentiality of Alcohol and Drug Abuse Patient Records regulations: The Federal rules restrict any use of the information to criminally investigate or prosecute any alcohol or drug abuse patient.[facility] HospitalIn the event this information is protected by the Federal Confidentiality of Alcohol and Drug Abuse Patient Records regulations: The Federal rules restrict any use of the information to criminally investigate or prosecute any alcohol or drug abuse patient.[facility] HospitalIn the event this information is protected by the Federal Confidentiality of Alcohol and Drug Abuse Patient Records regulations: The Federal rules restrict any use of the information to criminally investigate or prosecute any alcohol or drug abuse patient.[facility] HospitalIn the event this information is protected by the Federal Confidentiality of Alcohol and Drug Abuse Patient Records regulations: The Federal rules restrict any use of the information to criminally investigate or prosecute any alcohol or drug abuse patient.[facility] HospitalIn the event this information is protected by the Federal Confidentiality of Alcohol and Drug Abuse Patient Records regulations: The Federal rules restrict any use of the information to criminally investigate or prosecute any alcohol or drug abuse patient.[facility] HospitalIn the event this information is protected by the Federal Confidentiality of Alcohol and Drug Abuse Patient Records regulations: The Federal rules restrict any use of the information to criminally investigate or prosecute any alcohol or drug abuse patient.[facility] HospitalIn the event this information is protected by the Federal Confidentiality of Alcohol and Drug Abuse Patient Records regulations: The Federal rules restrict any use of the information to criminally investigate or prosecute any alcohol or drug abuse patient.[facility] HospitalIn the event this information is protected by the Federal Confidentiality of Alcohol and Drug Abuse Patient Records regulations: The Federal rules restrict any use of the information to criminally investigate or prosecute any alcohol or drug abuse patient.[facility] HospitalIn the event this information is protected by the Federal Confidentiality of Alcohol and Drug Abuse Patient Records regulations: The Federal rules restrict any use of the information to criminally investigate or prosecute any alcohol or drug abuse patient.[facility] HospitalIn the event this information is protected by the Federal Confidentiality of Alcohol and Drug Abuse Patient Records regulations: The Federal rules restrict any use of the information to criminally investigate or prosecute any alcohol or drug abuse patient.[facility] HospitalIn the event this information is protected by the Federal Confidentiality of Alcohol and Drug Abuse Patient Records regulations: The Federal rules restrict any use of the information to criminally investigate or prosecute any alcohol or drug abuse patient.[facility] HospitalIn the event this information is protected by the Federal Confidentiality of Alcohol and Drug Abuse Patient Records regulations: The Federal rules restrict any use of the information to criminally investigate or prosecute any alcohol or drug abuse patient.[facility] HospitalIn the event this information is protected by the Federal Confidentiality of Alcohol and Drug Abuse Patient Records regulations: The Federal rules restrict any use of the information to criminally investigate or prosecute any alcohol or drug abuse patient.[facility] HospitalIn the event this information is protected by the Federal Confidentiality of Alcohol and Drug Abuse Patient Records regulations: The Federal rules restrict any use of the information to criminally investigate or prosecute any alcohol or drug abuse patient.[facility] HospitalIn the event this information is protected by the Federal Confidentiality of Alcohol and Drug Abuse Patient Records regulations: The Federal rules restrict any use of the information to criminally investigate or prosecute any alcohol or drug abuse patient.[facility] HospitalIn the event this information is protected by the Federal Confidentiality of Alcohol and Drug Abuse Patient Records regulations: The Federal rules restrict any use of the information to criminally investigate or prosecute any alcohol or drug abuse patient.[facility] HospitalIn the event this information is protected by the Federal Confidentiality of Alcohol and Drug Abuse Patient Records regulations: The Federal rules restrict any use of the information to criminally investigate or prosecute any alcohol or drug abuse patient.[facility] HospitalIn the event this information is protected by the Federal Confidentiality of Alcohol and Drug Abuse Patient Records regulations: The Federal rules restrict any use of the information to criminally investigate or prosecute any alcohol or drug abuse patient.[facility] HospitalIn the event this information is protected by the Federal Confidentiality of Alcohol and Drug Abuse Patient Records regulations: The Federal rules restrict any use of the information to criminally investigate or prosecute any alcohol or drug abuse patient.[facility] HospitalIn the event this information is protected by the Federal Confidentiality of Alcohol and Drug Abuse Patient Records regulations: The Federal rules restrict any use of the information to criminally investigate or prosecute any alcohol or drug abuse patient.[facility] Reason for Visit (unrecogniz ed section and content) Reason Comments Cough x1 week, ST x3 days Reason Comments Results Reason Onset Date Comments Refill Request 06/11/2022 Reason Comments Cough Sinus congestion, ch est congestion, wheezing x5 days Reason Comments Insect Bite Tick bite on stomach x 1 day Reason Comments Hypertension Pain Right knuckles are s omwhat painful wondering about arthritis. 6 Month Exam Has a sensation like icy hot in right thigh Reason Comments Patient Question Reason Comments Orders Reason Comments Imm/Inj Reason Onset Date Comments Refill Request 12/01/2022 Reason Onset Date Comments Refill Request 03/04/2023 Reason Comments Consult colonoscopy Specialty Diagnoses / Procedures Referred By Contkarl t Referred To Contact General Surgery Diagnoses Tubular adenoma Procedures CONSULT TO GENERAL SURGERY OFFICE/OUTPATIENT [facility] 60-74 MINUTES Melia Moreno PA-C [address] [place] [address] Referral ID Status Reason Start Date Expiration Date V isits Requested Visits Authorized [id number] Closed PCP Requested Referral 02/16/2023 02/16/2024 1 1 Reason Onset Date Comments Refill Request 06/22/2023 Reason Onset Date Comments Refill Request 12/16/2023 Reason Comments Follow Up 6 month Reason Onset Date Comments Refill Request 06/30/2024 Reason Comments 6 Month Exam Reason Comments Cough Congestion, GROSS, feve r x 2 days Reason Comments Medication Question Reason Comments Medication Problem side effects Care Team (unrecognized sect ion and content) Care Team Personnel Name: Melia MORENO PA Member Role: Primary Care Physician Address: Address: [facility] [address] [facility] [address] [place] [address]- [place] Care Team Related Persons Name: MEERA ALFARO Address: [address] [place] [address] [place] FOR RECORDS PERTAINING TO PATIENTS WHO ARE OR HAVE BEEN ENROLLED IN A CHEMICAL DEPENDENCY/SUBSTANCEABUSE PROGRAM, SOME INFORMATION MAY BE OMITTED. This clinical summary was aggregated from multiple sources. Caution should be exercised in using it in the provision of clinical care. This summary normalizes information from multiple sources, and as a consequence, information in this document may materially change the coding, format and clinical context of patient data. In addition, data may be omitted in some cases. CLINICAL DECISIONS SHOULD BE BASED ON THE PRIMARY CLINICAL RECORDS. [employer] provides no warranty or guarantee of the accuracy or completeness of information in this document.
[2025-08-25] MEDS: 0.9% Normal Saline (1000mL) 1,000 ML 999 ML IV (09:33)
[2025-08-25 09:48] LABS: Hematocrit 40.4 % (37-47); Hemoglobin 13.4 g/dL (12.0-15.0); Immature Granulocytes Count 0.020 X10^3/uL (0.0-0.0); Mean Corp Hgb Conc 33.2 g/dL (32-36); Mean Corpuscular Volume 86.9 fL (81-99); Mean Platelet Vol. 9.9 fl (6.2-12.0); NRBC Flagged by Analyzer 0 % (0-5); Platelet Count 345 K/mm3 (150-450); RBC Distribution Width CV 13.1 % (11.6-14.6); RBC Distribution Width SD 41.2 fl (35.1-43.9); Red Blood Count 4.65 M/mm3 (4.2-5.4); White Blood Count 6.3 K/mm3 (4.4-11.0)
[2025-08-25 10:20] LABS: Mucous, Urine 0 SEEN /hpf (<or=2+); Red Blood Cells-Urine 0 SEEN /hpf (0-5)
[2025-08-25 10:22] LABS: Color, Urine Yellow (Yellow); Glucose, Dipstick Normal (Normal); Ketone-Dipstick Negative (Negative); Leukocyte Esterase-Dipstick 25 /ul (Negative); Nitrite-Dipstick Negative (Negative); Occult Blood-Urine 10 /ul (Negative); Protein-Dipstick 15 mg/dl (Negative); Specific Gravity, Urine 1.005 (1.002-1.030); Urine Bilirubin Dipstick Negative (Negative)
[2025-08-25 10:26] LABS: AST(SGOT) 22 U/L (<=31); Alanine Aminotransfer ALT/SGPT 21 U/L (<=34); Albumin, Serum 4.2 g/dL (3.5-5.0); Alkaline Phosphatase 67 U/L (35-104); Anion Gap 9 (5-15); BUN 16 mg/dL (4-19); BUN/Creat Ratio 18.2 RATIO (10-20); Calcium,Total 9.5 mg/dL (7.6-11.0); Carbon Dioxide 28.2 mmol/L (21.0-32.0); Chloride 102 mmol/L (98-108); Estimated Creatinine Clearance 81.64 ml/min (50-250); Globulin 2.9 g/dL (2.2-4.2); Glucose 87 mg/dL (70-99); Lipase 31 U/L (13-75); Potassium 3.4 mmol/L (3.3-5.1)
[2025-08-25 10:31] LABS: Squamous Epithelial Cells - UA 0-5 SEEN /hpf (5-10)
[2025-08-25 10:35] VITALS: BP 138/79; PULSE 75; RESP 16; O2SAT 97
[2025-08-25 11:11] VITALS: BP 138/79; PULSE 75; RESP 16; TEMP 36.7; O2SAT 97
== END 2025-08-25 11:12 | disposition home or self-care (01) ==
PROVIDERS: Emergency Provider Surgery; PCP Clinical Nurse Specialist Adult Health; Visit Provider Surgery
DX: R10.31 Right lower quadrant pain (principal); K52.9 Noninfective gastroenteritis and colitis, unspecified; I10 Essential (primary) hypertension; E78.5 Hyperlipidemia, unspecified
CPT/HCPCS: 74177; 80053; 81001; 83690; 85025; 96361; 96374; 96375; 99283; Q9967; A4216; J2405